=== PATIENT | male | born 1945 | race Caucasian/White ===

== ENCOUNTER 2019-05-23 12:52 | Inpatient (IN) | payer MEDICARE ==
[2019-05-23] MEDS ORDERED: SODIUM CHLORIDE 0.9% 1,000 ML IV STA ×2 (13:34)
[2019-05-23] MEDS ORDERED: SODIUM CHLORIDE 0.9% 500 ML 500 ML IV STA (13:34)
--- NOTE | 2019-05-23 13:39 | ED ---
Weakness HPI - General Chief complaint: Weakness Stated complaint: weakness Time Seen by Provider: 05/23/19 13:17 Source: patient, RN notes reviewed Mode of arrival: ambulatory Limitations: no limitations - History of Present Illness Initial comments: This is a 74-year-old male who was brought in by family members because of generalized weakness. He has had decreased oral intake chills and shakes since last night just generally not feeling well he stated decreased oral intake/appetite. This is apparently been progressing over last week and a half is gotten worse since yesterday. He was admitted to [facility] about a week and a half ago and signed himself out apparently because he was not getting any answers to his questions as to what was going on with him. He states he was having some abdominal pain at that time he states his urine output has been diminished. It is appearing to be darker he has no rhinorrhea no earache sore throat no overt cough he does have occasional phlegm production. No chest pain no palpitations no other modifying factors currently. Discussed with the patient's daughter he apparently has been demonstrating some confusion at times with these symptoms. MD Complaint: generalized weakness - Related Data Home Medications Medication Instructions Recorded Confirmed Aspirin EC [Ecotrin Low Dose] 81 mg PO DAILY 05/23/19 05/23/19 Cholecalciferol [Vitamin D3 (25 1,000 unit PO BID 05/23/19 05/23/19 Mcg = 1000 Iu)] Cinnamon 1000mg + Chromium 1 tab PO BID 05/23/19 05/23/19 Escitalopram [Lexapro] 10 mg PO DAILY 05/23/19 05/23/19 Insulin Degludec [Tresiba 63 units SQ DAILY 05/23/19 05/23/19 Flextouch U-100] Levothyroxine Sodium [Synthroid] 75 mcg PO DAILY 05/23/19 05/23/19 Lisinopril [Zestril] 5 mg PO DAILY 05/23/19 05/23/19 Loratadine [Claritin] 10 mg PO DAILY 05/23/19 05/23/19 Lovastatin [Altoprev] 20 mg PO HS 05/23/19 05/23/19 Multivit-Min/FA/Lycopen/Lutein 1 tab PO DAILY 05/23/19 05/23/19 [Centrum Silver Men Tablet] [place]-3 Fatty Acids/Fish Oil [Fish 1 cap PO TID 05/23/19 05/23/19 Oil 1,000 mg Softgel] Saw [place] 450mg 1 tab PO QID 05/23/19 05/23/19 Tamsulosin HCl [Flomax] 0.4 mg PO DAILY 05/23/19 05/23/19 Testosterone Cypionate 100 mg IM Q14D 05/23/19 05/23/19 [Depo-Testosterone] metFORMIN HCL 1,000 mg PO BID 05/23/19 05/23/19 Allergies Allergy/AdvReac Type Severity Reaction Status Date / Time No Known Allergies Allergy Verified 05/23/19 13:01 Review of Systems ROS Statement: Those systems with pertinent positive or pertinent negative responses have been documented in the HPI. ROS Other: All systems not noted in ROS Statement are negative. Past Medical History Past Medical History: Diabetes Mellitus History of Any Multi-Drug Resistant Organisms: Unobtainable Past Surgical History: No Surgical Hx Reported Past Psychological History: Depression Smoking Status: Never smoker Past Alcohol Use History: None Reported Past Drug Use History: None Reported General Exam - General Exam Comments Initial Comments: This is a well-developed well-nourished awake alert oriented times female Limitations: no limitations General appearance: alert, in no apparent distress Head exam: Present: atraumatic, normocephalic, normal inspection Eye exam: Present: normal appearance, PERRL, EOMI. Absent: scleral icterus, conjunctival injection, periorbital swelling ENT exam: Present: mucous membranes dry Neck exam: Present: normal inspection, full ROM, other (No stridor JVD or bruits). Absent: tenderness, meningismus, lymphadenopathy Respiratory exam: Present: normal lung sounds bilaterally. Absent: respiratory distress, wheezes, rales, rhonchi, stridor Cardiovascular Exam: Present: normal rhythm, tachycardia, normal heart sounds. Absent: systolic murmur, diastolic murmur, rubs, gallop, clicks GI/Abdominal exam: Present: soft, normal bowel sounds. Absent: distended, tenderness, guarding, rebound, rigid Extremities exam: Present: normal inspection, full ROM, normal capillary refill. Absent: tenderness, pedal edema, joint swelling, calf tenderness Back exam: Present: normal inspection Neurological exam: Present: alert, oriented X3, CN II-XII intact Psychiatric exam: Present: normal affect, normal mood Skin exam: Present: warm, dry, intact, normal color. Absent: rash Course Vital Signs 05/23/19 05/23/19 05/23/19 12:56 13:30 14:00 Temperature 100.0 F H Pulse Rate 106 H 95 87 Respiratory 18 16 18 Rate Blood Pressure 92/56 101/58 89/55 O2 Sat by Pulse 92 L 92 L 94 L Oximetry 05/23/19 05/23/19 05/23/19 14:30 14:57 15:00 Temperature 99.2 F Pulse Rate 82 74 77 Respiratory 16 20 Rate Blood Pressure 100/62 117/65 O2 Sat by Pulse 95 98 Oximetry 05/23/19 15:07 Temperature Pulse Rate 87 Respiratory Rate Blood Pressure O2 Sat by Pulse Oximetry Medical Decision Making - Medical Decision Making I did discuss the findings with patient family members. Patient does have evidence a left lower pneumonia low-grade fever L of a white count dehydration renal insufficiency elevated liver enzymes. Elevated bilirubin. Ultrasound of the gallbladder has been ordered. I did discuss case Dr. Christine the patient will be admitted for inpatient treatment - Lab Data Result diagrams: 05/23/19 13:21 05/23/19 13:21 Lab Results 05/23/19 05/23/19 05/23/19 Range/Units 13:21 13:21 13:21 WBC 21.3 H (3.8-10.6) k/uL RBC 4.56 (4.30-5.90) m/uL Hgb 13.8 (13.0-17.5) gm/dL Hct 41.8 (39.0-53.0) % MCV 91.6 (80.0-100.0) fL MCH 30.3 (25.0-35.0) pg MCHC 33.1 (31.0-37.0) g/dL RDW 12.9 (11.5-15.5) % Plt Count 342 (150-450) k/uL Neutrophils % 94 % Lymphocytes % 2 % Monocytes % 3 % Eosinophils % 0 % Basophils % 0 % Neutrophils # 20.0 H (1.3-7.7) k/uL Lymphocytes # 0.3 L (1.0-4.8) k/uL Monocytes # 0.6 (0-1.0) k/uL Eosinophils # 0.1 (0-0.7) k/uL Basophils # 0.1 (0-0.2) k/uL PT 13.2 H (9.0-12.0) sec INR 1.3 H (<1.2) APTT 22.7 (22.0-30.0) sec Sodium 131 L (137-145) mmol/L Potassium 4.3 (3.5-5.1) mmol/L Chloride 97 L (98-107) mmol/L Carbon Dioxide 24 (22-30) mmol/L Anion Gap 10 mmol/L BUN 25 H (9-20) mg/dL Creatinine 1.56 H (0.66-1.25) mg/dL Est GFR (CKD-EPI)AfAm 50 (>60 ml/min/1.73 sqM) Est GFR (CKD-EPI)NonAf 44 (>60 ml/min/1.73 sqM) Glucose 55 L (74-99) mg/dL Plasma Lactic Acid Ciro (0.7-2.0) mmol/L Calcium 8.4 (8.4-10.2) mg/dL Magnesium 1.3 L (1.6-2.3) mg/dL Total Bilirubin 3.2 H (0.2-1.3) mg/dL AST 328 H (17-59) U/L ALT 289 H (4-49) U/L Alkaline Phosphatase 397 H (38-126) U/L Creatine Kinase 66 (55-170) U/L Troponin I (0.000-0.034) ng/mL NT-Pro-B Natriuret Pep pg/mL Total Protein 6.3 (6.3-8.2) g/dL Albumin 3.1 L (3.5-5.0) g/dL Urine Color Urine Appearance (Clear) Urine pH (5.0-8.0) Ur Specific [place] (1.001-1.035) Urine Protein (Negative) Urine Glucose (UA) (Negative) Urine Ketones (Negative) Urine Blood (Negative) Urine Nitrite (Negative) Urine Bilirubin (Negative) Urine Urobilinogen (<2.0) mg/dL Ur Leukocyte Esterase (Negative) Urine RBC (0-5) /hpf Urine WBC (0-5) /hpf Urine Mucus (None) /hpf 03/22/20 03/22/20 03/22/20 Range/Units 13:21 13:21 13:21 WBC (3.8-10.6) k/uL RBC (4.30-5.90) m/uL Hgb (13.0-17.5) gm/dL Hct (39.0-53.0) % MCV (80.0-100.0) fL MCH (25.0-35.0) pg MCHC (31.0-37.0) g/dL RDW (11.5-15.5) % Plt Count (150-450) k/uL Neutrophils % % Lymphocytes % % Monocytes % % Eosinophils % % Basophils % % Neutrophils # (1.3-7.7) k/uL Lymphocytes # (1.0-4.8) k/uL Monocytes # (0-1.0) k/uL Eosinophils # (0-0.7) k/uL Basophils # (0-0.2) k/uL PT (9.0-12.0) sec INR (<1.2) APTT (22.0-30.0) sec Sodium (137-145) mmol/L Potassium (3.5-5.1) mmol/L Chloride (98-107) mmol/L Carbon Dioxide (22-30) mmol/L Anion Gap mmol/L BUN (9-20) mg/dL Creatinine (0.66-1.25) mg/dL Est GFR (CKD-EPI)AfAm (>60 ml/min/1.73 sqM) Est GFR (CKD-EPI)NonAf (>60 ml/min/1.73 sqM) Glucose (74-99) mg/dL Plasma Lactic Acid Ciro 2.1 H* (0.7-2.0) mmol/L Calcium (8.4-10.2) mg/dL Magnesium (1.6-2.3) mg/dL Total Bilirubin (0.2-1.3) mg/dL AST (17-59) U/L ALT (4-49) U/L Alkaline Phosphatase (38-126) U/L Creatine Kinase (55-170) U/L Troponin I <0.012 (0.000-0.034) ng/mL NT-Pro-B Natriuret Pep 952 pg/mL Total Protein (6.3-8.2) g/dL Albumin (3.5-5.0) g/dL Urine Color Urine Appearance (Clear) Urine pH (5.0-8.0) Ur Specific [place] (1.001-1.035) Urine Protein (Negative) Urine Glucose (UA) (Negative) Urine Ketones (Negative) Urine Blood (Negative) Urine Nitrite (Negative) Urine Bilirubin (Negative) Urine Urobilinogen (<2.0) mg/dL Ur Leukocyte Esterase (Negative) Urine RBC (0-5) /hpf Urine WBC (0-5) /hpf Urine Mucus (None) /hpf 05/23/19 Range/Units 13:22 WBC (3.8-10.6) k/uL RBC (4.30-5.90) m/uL Hgb (13.0-17.5) gm/dL Hct (39.0-53.0) % MCV (80.0-100.0) fL MCH (25.0-35.0) pg MCHC (31.0-37.0) g/dL RDW (11.5-15.5) % Plt Count (150-450) k/uL Neutrophils % % Lymphocytes % % Monocytes % % Eosinophils % % Basophils % % Neutrophils # (1.3-7.7) k/uL Lymphocytes # (1.0-4.8) k/uL Monocytes # (0-1.0) k/uL Eosinophils # (0-0.7) k/uL Basophils # (0-0.2) k/uL PT (9.0-12.0) sec INR (<1.2) APTT (22.0-30.0) sec Sodium (137-145) mmol/L Potassium (3.5-5.1) mmol/L Chloride (98-107) mmol/L Carbon Dioxide (22-30) mmol/L Anion Gap mmol/L BUN (9-20) mg/dL Creatinine (0.66-1.25) mg/dL Est GFR (CKD-EPI)AfAm (>60 ml/min/1.73 sqM) Est GFR (CKD-EPI)NonAf (>60 ml/min/1.73 sqM) Glucose (74-99) mg/dL Plasma Lactic Acid Ciro (0.7-2.0) mmol/L Calcium (8.4-10.2) mg/dL Magnesium (1.6-2.3) mg/dL Total Bilirubin (0.2-1.3) mg/dL AST (17-59) U/L ALT (4-49) U/L Alkaline Phosphatase (38-126) U/L Creatine Kinase (55-170) U/L Troponin I (0.000-0.034) ng/mL NT-Pro-B Natriuret Pep pg/mL Total Protein (6.3-8.2) g/dL Albumin (3.5-5.0) g/dL Urine Color Light Brown Urine Appearance Cloudy (Clear) Urine pH 5.5 (5.0-8.0) Ur Specific [place] 1.024 (1.001-1.035) Urine Protein 1+ H (Negative) Urine Glucose (UA) Negative (Negative) Urine Ketones Negative (Negative) Urine Blood Negative (Negative) Urine Nitrite Negative (Negative) Urine Bilirubin 2+ H (Negative) Urine Urobilinogen 8.0 (<2.0) mg/dL Ur Leukocyte Esterase Negative (Negative) Urine RBC 1 (0-5) /hpf Urine WBC 3 (0-5) /hpf Urine Mucus Few H (None) /hpf - EKG Data -: EKG Interpreted by Pa EKG shows normal: sinus rhythm (Sinus rhythm with PVCs. Ventricular rate 96 RI interval 168 QRS duration 86 QT since QTC 360/44) - Radiology Data Radiology results: report reviewed (Patient does have evidence of left lower lob e infiltrate on x-ray.), image reviewed Disposition Clinical Impression: Left lower lobe pneumonia, Acute kidney injury, Dehydration, Hyperbilirubinemia Disposition: ADMITTED IP TO THIS [facility] Condition: Fair Referrals: Td Chen MD [Primary Care Provider] - 1-2 days
[2019-05-23 13:42] LABS: Basophils # (A) 0.1 k/uL (0-0.2); Basophils % (A) 0 %; Eosinophils # (A) 0.1 k/uL (0-0.7); Eosinophils % (A) 0 %; HCT 41.8 % (39.0-53.0); HGB 13.8 gm/dL (13.0-17.5); Lymphocytes # (A) 0.3 k/uL (1.0-4.8); Lymphocytes % (A) 2 %; MCH 30.3 pg (25.0-35.0); MCHC 33.1 g/dL (31.0-37.0); MCV 91.6 fL (80.0-100.0); Mean Platelet Volume 7.9; Monocytes # (A) 0.6 k/uL (0-1.0); Monocytes % (A) 3 %; Neutrophils % (A) 94 %; Platelet Count 342 k/uL (150-450); RBC 4.56 m/uL (4.30-5.90); RDW 12.9 % (11.5-15.5); WBC 21.3 k/uL (3.8-10.6)
[2019-05-23 13:49] LABS: Appearance,Urine Cloudy (Clear); Bilirubin,Urine 2+ (Negative); Blood,Urine Negative (Negative); Color,Urine Light Brown; Glucose,Urine (UA) Negative (Negative); Ketones,Urine Negative (Negative); Leukocyte Esterase,Urine Negative (Negative); Mucus,Urine Few /hpf; Nitrite,Urine Negative (Negative); PH, Urine 5.5 (5.0-8.0); Protein,Urine 1+ (Negative); RBC,Urine 1 /hpf (0-5); Specific Gravity,Urine 1.024 (1.001-1.035); WBC,Urine 3 /hpf (0-5)
[2019-05-23 13:49] LABS: Albumin 3.1 g/dL (3.5-5.0); Calcium 8.4 mg/dL (8.4-10.2); Magnesium 1.3 mg/dL (1.6-2.3); Potassium 4.3 mmol/L (3.5-5.1); Total Bilirubin 3.2 mg/dL (0.2-1.3); Total Protein 6.3 g/dL (6.3-8.2)
[2019-05-23 13:51] LABS: INR 1.3 (<1.2); Partial Thromboplastin Time 22.7 sec (22.0-30.0); Prothrombin Time 13.2 sec (9.0-12.0)
--- NOTE | 2019-05-23 13:55 | XR ---
EXAMINATION TYPE: XR chest 2V DATE OF EXAM: 05/23/2019 HISTORY: Weakness. REFERENCE: NONE. FINDINGS: There is a left lower lobe infiltrate. The heart is mildly enlarged. There is blunting of b oth CP angles. I could not exclude small effusions. IMPRESSION: LEFT LOWER LOBE INFILTRATE.
[2019-05-23] MEDS ORDERED: cefTRIAXone IN SWFI 1,000 MG/10 ML SYRINGE IVP STA (14:17)
[2019-05-23] MEDS ORDERED: IPRATROPIUM-ALBUTEROL 3 ML NEB INHALATION STA (14:20)
[2019-05-23] MEDS: MAGNESIUM SULFATE-D5W PMX 1 GM in DEXTROSE/WATER 1 100ML.BAG IVPB SCH ×2 (14:26→15:56)
--- NOTE | 2019-05-23 14:59 | US ---
EXAMINATION TYPE: US gallbladder DATE OF EXAM: 05/23/2019 COMPARISON: NONE CLINICAL HISTORY: Hyperbilirubinemia. Abnormal labs EXAM MEASUREMENTS: Liver Length: 19.7 cm Gallbladder Wall: 1.0 cm CBD: 1.0 cm Right Kidney: 11.1 x 5.0 x 5.0 cm Pancreas: Body wnl, head and tail obscured by overlying bowel gas Liver: Enlarged, difficult to penetrate Gallbladder: Wall thickened with pericholecystic fluid, debris visualized at dependent portion Evidence for sonographic García's sign: No CBD: wnl Right Kidney: wnl IMPRESSION: Thickening gallbladder wall suggestive of cholecystitis. No definite gallstones seen.
[2019-05-23] MEDS ORDERED: AZITHROMYCIN 500 MG in SODIUM CHLORIDE 0.9% 250 ML IVPB STA (15:34)
[2019-05-23] MEDS ORDERED: PNEUMONIA PROTOCOL UTILIZED 1 EACH MISC PO PRN (15:34)
[2019-05-23] MEDS: SODIUM CHLORIDE 0.9% 1,000 ML IV SCH (15:55)
[2019-05-23 16:03] LABS: Hepatitis A Antibody IgM NEGATIVE
[2019-05-23 17:15] LABS: Glucose,Whole Blood 96 mg/dL (75-99)
[2019-05-23 20:18] LABS: Glucose,Whole Blood 138 mg/dL (75-99)
[2019-05-23] MEDS: metFORMIN 500 MG TAB PO SCH (20:24)
[2019-05-23] MEDS: ATORVASTATIN 10 MG TAB PO SCH (20:24)
[2019-05-23] MEDS: ENOXAPARIN 40 MG/0.4 ML SYRINGE SQ SCH (21:27)
--- NOTE | 2019-05-23 22:46 | P.HPIM ---
History of Present Illness H&P Date: 05/23/19 Chief Complaint: Not feeling well History of presenting complaint: This is a pleasant 74-year-old patient of Dr. Chen. Patient about a week ago left [facility]. He was treated there for pneumonia. Patient now presents with decreased appetite having chills at home. Minimal cough. Nonspecific upper abdominal pain. Also worsening reflux symptoms. No chest pain. Minimal cough. Some shortness of breath. The abdominal pain did not radiate. Not related to food. It is gone now. Review of systems: GEN.: Fever or chills EYES: None HEENT: None NECK: None RESPIRATORY: As above CARDIOVASCULAR: None GASTROINTESTINAL: As above] GENITOURINARY: None MUSCULOSKELETAL: Some joint pains LYMPHATICS: None HEMATOLOGICAL: None PSYCHIATRY: None NEUROLOGICAL: None Past medical history to include: Diabetes, depression, BPH, hyperlipidemia, hypertension, hypothyroid Social history: Retired. Lives with his . No smoking or alcohol Family history: Reviewed, noncontributory to presentation Physical examination: VITAL SIGNS: 100, 106, 18, blood pressure 92/56, 92% on room air GENERAL: BMI 31.3, laying in bed, tired. EYES: Pupils equal. Conjunctiva normal. HEENT: External appearance of nose and ears normal, oral cavity grossly normal. NECK: JVD not raised; masses not palpable. HEART: First and second heart sounds are normal; no edema. LUNGS: Respiratory rate increased, decreased breath sound at the bases. ABDOMEN: Soft, nontender, liver spleen not palpable, no masses palpable. PSYCH: [Alert and oriented x3; mood and affect tired l. NEUROLOGICAL: Cranial nerves grossly intact; no facial asymmetry, power and sensation grossly intact. LYMPHATICS: No lymph nodes palpable in the axilla and neck INVESTIGATIONS, reviewed in the clinical context: White count 21.3 hemoglobin 13.8 platelets 342 potassium 4.3 sodium 131 bun 3025 creatinine 1.56 glucose 55 lactic acid 2.1 total bilirubin 3.2 AST 328 ALT 289 alkaline phosphatase 397 UA positive for 1+ protein, bilirubin 2+ Hepatitis A IgM antibody negative Chest x-ray film personally reviewed by me-basilar infiltrate EKG tracing personally reviewed by me-normal sinus rhythm Gallbladder ultrasound-enlarged liver, gallbladder with thickened wall with pericholecystic fluid with some debris within the visualized of the dependent portions Assessment: -Suspect basal pneumonia suspect gram-negative organism and the patient was treated for pneumonia at [facility] left AMA about a week ago. Patient's had slight cough some shortness of breath -Upper abdominal pain with abdominal ultrasound, with negative García's sign, the ultrasound suggestive of acute cholecystitis with increased LFTs -Acute renal failure possibly ATN with hypotension -Obesity BMI 31.3 -Diabetes mellitus type 2, uncontrolled with hypoglycemia from decreased oral intake -BPH -Hyperlipidemia -Hypothyroid -Depression otherwise specified Plan: Patient started on ceftriaxone and Zithromax in the ER. We'll cut back a dose of Levemir to 30 units in the morning. Sliding scale insulin. Give IV fluids. Repeat lites in the morning. Lovenox for DVT prophylaxis. Surgical consultation will be obtained. Other home medications are reviewed. Care was discussed with the patient question were answered Past Medical History Past Medical History: Diabetes Mellitus History of Any Multi-Drug Resistant Organisms: Unobtainable Past Surgical History: No Surgical Hx Reported Past Psychological History: Depression Smoking Status: Never smoker Past Alcohol Use History: None Reported Past Drug Use History: None Reported Medications and Allergies Home Medications Medication Instructions Recorded Confirmed Type Aspirin EC [Ecotrin Low Dose] 81 mg PO DAILY 05/23/19 05/23/19 History Cholecalciferol [Vitamin D3 (25 1,000 unit PO BID 05/23/19 05/23/19 History Mcg = 1000 Iu)] Cinnamon 1000mg + Chromium 1 tab PO BID 05/23/19 05/23/19 History Escitalopram [Lexapro] 10 mg PO DAILY 05/23/19 05/23/19 History Insulin Degludec [Tresiba 63 units SQ DAILY 05/23/19 05/23/19 History Flextouch U-100] Levothyroxine Sodium [Synthroid] 75 mcg PO DAILY 05/23/19 05/23/19 History Lisinopril [Zestril] 5 mg PO DAILY 05/23/19 05/23/19 History Loratadine [Claritin] 10 mg PO DAILY 05/23/19 05/23/19 History Lovastatin [Altoprev] 20 mg PO HS 05/23/19 05/23/19 History Multivit-Min/FA/Lycopen/Lutein 1 tab PO DAILY 05/23/19 05/23/19 History [Centrum Silver Men Tablet] [place]-3 Fatty Acids/Fish Oil [Fish 1 cap PO TID 05/23/19 05/23/19 History Oil 1,000 mg Softgel] Saw [place] 450mg 1 tab PO QID 05/23/19 05/23/19 History Tamsulosin HCl [Flomax] 0.4 mg PO DAILY 05/23/19 05/23/19 History Testosterone Cypionate 100 mg IM Q14D 05/23/19 05/23/19 History [Depo-Testosterone] metFORMIN HCL 1,000 mg PO BID 05/23/19 05/23/19 History Allergies Allergy/AdvReac Type Severity Reaction Status Date / Time No Known Allergies Allergy Verified 05/23/19 15:29 Physical Exam Vitals: Vital Signs Temp Pulse Pulse Pulse Resp BP BP 05/23/19 20:26 98.4 F 65 18 101/57 05/23/19 16:54 96.8 F L 76 20 97/54 05/23/19 16:00 79 16 100/60 05/23/19 15:30 79 18 104/60 05/23/19 15:07 87 05/23/19 15:00 77 20 117/65 05/23/19 14:57 74 05/23/19 14:30 99.2 F 82 16 100/62 05/23/19 14:00 87 18 89/55 05/23/19 13:30 95 16 101/58 05/23/19 12:56 100.0 F H 106 H 18 92/56 Pulse Ox 05/23/19 20:26 97 05/23/19 16:54 94 L 05/23/19 16:00 94 L 05/23/19 15:30 94 L 05/23/19 15:07 05/23/19 15:00 98 05/23/19 14:57 05/23/19 14:30 95 05/23/19 14:00 94 L 05/23/19 13:30 92 L 05/23/19 12:56 92 L Intake and Output 05/23/19 05/23/19 05/23/19 06:59 14:59 22:59 Intake Total 200 Balance 200 Intake: Oral 200 Other: Voiding Method Urinal Urinal # Voids 1 Weight 90.718 kg Results CBC & Chem 7: 05/23/19 13:21 03/22/20 13:21 Labs: Abnormal Lab Results - Last 24 Hours (Table) 05/23/19 05/23/19 05/23/19 Range/Units 13:21 13:21 13:21 WBC 21.3 H (3.8-10.6) k/uL Neutrophils # 20.0 H (1.3-7.7) k/uL Lymphocytes # 0.3 L (1.0-4.8) k/uL PT 13.2 H (9.0-12.0) sec INR 1.3 H (<1.2) Sodium 131 L (137-145) mmol/L Chloride 97 L (98-107) mmol/L BUN 25 H (9-20) mg/dL Creatinine 1.56 H (0.66-1.25) mg/dL Glucose 55 L (74-99) mg/dL POC Glucose (mg/dL) (75-99) mg/dL Plasma Lactic Acid Ciro (0.7-2.0) mmol/L Magnesium 1.3 L (1.6-2.3) mg/dL Total Bilirubin 3.2 H (0.2-1.3) mg/dL AST 328 H (17-59) U/L ALT 289 H (4-49) U/L Alkaline Phosphatase 397 H (38-126) U/L Albumin 3.1 L (3.5-5.0) g/dL Urine Protein (Negative) Urine Bilirubin (Negative) Urine Mucus (None) /hpf 05/23/19 05/23/19 05/23/19 Range/Units 13:21 13:22 17:42 WBC (3.8-10.6) k/uL Neutrophils # (1.3-7.7) k/uL Lymphocytes # (1.0-4.8) k/uL PT (9.0-12.0) sec INR (<1.2) Sodium (137-145) mmol/L Chloride (98-107) mmol/L BUN (9-20) mg/dL Creatinine (0.66-1.25) mg/dL Glucose (74-99) mg/dL POC Glucose (mg/dL) (75-99) mg/dL Plasma Lactic Acid Ciro 2.1 H* 2.9 H* (0.7-2.0) mmol/L Magnesium (1.6-2.3) mg/dL Total Bilirubin (0.2-1.3) mg/dL AST (17-59) U/L ALT (4-49) U/L Alkaline Phosphatase (38-126) U/L Albumin (3.5-5.0) g/dL Urine Protein 1+ H (Negative) Urine Bilirubin 2+ H (Negative) Urine Mucus Few H (None) /hpf 05/23/19 Range/Units 20:14 WBC (3.8-10.6) k/uL Neutrophils # (1.3-7.7) k/uL Lymphocytes # (1.0-4.8) k/uL PT (9.0-12.0) sec INR (<1.2) Sodium (137-145) mmol/L Chloride (98-107) mmol/L BUN (9-20) mg/dL Creatinine (0.66-1.25) mg/dL Glucose (74-99) mg/dL POC Glucose (mg/dL) 138 H (75-99) mg/dL Plasma Lactic Acid Ciro (0.7-2.0) mmol/L Magnesium (1.6-2.3) mg/dL Total Bilirubin (0.2-1.3) mg/dL AST (17-59) U/L ALT (4-49) U/L Alkaline Phosphatase (38-126) U/L Albumin (3.5-5.0) g/dL Urine Protein (Negative) Urine Bilirubin (Negative) Urine Mucus (None) /hpf Thrombosis Risk Factor Assmnt - Choose All That Apply Each Risk Factor Represents 2 Points: Age 61-74 years Thrombosis Risk Factor Assessment Total Risk Factor Score: 2 Thrombosis Risk Factor Assessment Level: Low Risk
[2019-05-24] MEDS: SODIUM CHLORIDE 0.9% 1,000 ML IV SCH ×6 (00:31→17:52)
[2019-05-24] MEDS: LEVOTHYROXINE 75 MCG TAB PO SCH (05:12)
[2019-05-24 07:14] LABS: Glucose,Whole Blood 75 mg/dL (75-99)
[2019-05-24] MEDS: INSULIN ASPART (NovoLOG) 100 UNIT/ML VIAL SQ SCH ×4 (07:27→20:48)
--- NOTE | 2019-05-24 07:45 | XR ---
EXAMINATION TYPE: XR chest 2V DATE OF EXAM: 05/24/2019 COMPARISON: 05/23/2019 HISTORY: 74-year-old male pneumonia TECHNIQUE: Frontal and lateral views FINDINGS: Heart mildly enlarged. Strandy bibasilar opacities. Multiple old right-sided rib fracture deformities . Focal patchy posterior basilar opacity remains. IMPRESSION: Mild cardiomegaly. Strandy bibasilar atelectasis but with continued more focal posterior basilar infi ltrate on the lateral view.
[2019-05-24 08:09] LABS: HCT 38.8 % (39.0-53.0); HGB 12.4 gm/dL (13.0-17.5); MCH 30.4 pg (25.0-35.0); MCHC 32.1 g/dL (31.0-37.0); MCV 94.8 fL (80.0-100.0); Platelet Count 339 k/uL (150-450); RBC 4.09 m/uL (4.30-5.90); RDW 13.1 % (11.5-15.5); WBC 17.9 k/uL (3.8-10.6)
[2019-05-24 08:18] LABS: Calcium 8.3 mg/dL (8.4-10.2); Potassium 4.8 mmol/L (3.5-5.1); Total Bilirubin 3.3 mg/dL (0.2-1.3); Total Protein 6.3 g/dL (6.3-8.2)
[2019-05-24] MEDS: INSULIN DETEMIR (LEVEMIR) 100 UNIT/ML SYR SQ SCH (08:20)
[2019-05-24] MEDS: ESCITALOPRAM 10 MG TAB PO SCH (08:20)
[2019-05-24] MEDS: metFORMIN 500 MG TAB PO SCH ×2 (08:20→20:48)
[2019-05-24] MEDS: TAMSULOSIN 0.4 MG CAP.ER.24H PO SCH (08:20)
[2019-05-24] MEDS: ASPIRIN 81 MG PO SCH (08:20)
[2019-05-24] MEDS ORDERED: INSULIN DETEMIR (LEVEMIR) 100 UNIT/ML SYR SQ SCH (09:00)
[2019-05-24] MEDS ORDERED: LORATADINE 10 MG TAB PO SCH (09:00)
[2019-05-24] MEDS ORDERED: LISINOPRIL 5 MG TAB PO SCH (09:00)
[2019-05-24 09:55] LABS: Hepatitis B Core IgM Non-Reactive (Non-Reactive); Hepatitis B Surface Antigen Non-Reactive (Non-Reactive); Hepatitis C IgG Antibody Non-Reactive (Non-Reactive)
--- NOTE | 2019-05-24 10:17 | P.GSCN ---
<Katlyn Wren - Last Filed: 05/24/19 10:14> History of Present Illness Consult date: 05/24/19 Reason for Consult: abnormal US Requesting physician: Roberto Christine History of present illness: CHIEF COMPLAINT: Abnormal ultrasound HISTORY OF PRESENT ILLNESS: 74-year-old male who is currently admitted to hospital secondary to pneumonia. General surgery was consulted secondary to abnormal gallbladder ultrasound. Patient examined this morning at the bedside. He currently denies abdominal pain. He does report abdominal pain in the epigastric region and bilateral upper quadrants last week. He denies nausea or vomiting. He believes he may have had some diarrhea but he is not for certain. He currently denies abdominal pain. PAST MEDICAL HISTORY: See list. PAST SURGICAL HISTORY: See list. MEDICATIONS: See list. ALLERGIES: See list. SOCIAL HISTORY: No illicit drug use. REVIEW OF SYSTEMS: CONSTITUTIONAL: Reports chills prior to coming to the hospital. HEENT: Denies blurred vision, vision changes, or eye pain. Denies hemoptysis ENDOCRINE: Denies heat or cold intolerance. CARDIOVASCULAR: Denies chest pain or pressure. RESPIRATORY: Reports shortness of breath and cough prior to hospitalization GASTROINTESTINAL: See HPI for pertinent findings NEURO: Denies history of seizures. PSYCH: History of depression. No current suicidal ideation HEMATOLOGIC: Denies bleeding disorders. LYMPHATIC: The patient denies any lumps and bumps around the neck. GENITOURINARY: Denies any blood in urine or increased urinary frequency. MUSCULOSKELETAL: Denies myalgias. Denies joint swelling. Denies decreased range of motion beyond patients baseline. SKIN: Denies pruitis. Denies rash. PHYSICAL EXAM: VITAL SIGNS: Reviewed GENERAL: Well-developed in no acute distress. HEENT: No sclera icterus. Extraocular movements grossly intact. Moist buccal mucosa. Head is atraumatic, normocephalic. Hears conversational speech. No nasal drainage. NECK: Supple without lymphadenopathy. CHEST: Non-labored respirations and equal bilateral excursions. CARDIOVASCULAR: Regular rate with regular rhythm. Palpable 2+ radial pulses. ABDOMEN: Soft. Nondistended. Nontender MUSCULOSKELETAL: No clubbing or cyanosis. NEUROLOGIC: No focal or lateralizing signs. Cranial nerves II through XII grossly intact. PSYCH: Appropriate affect. Alert and oriented to person, place and time. SKIN: Well perfused. Good skin turgor. LABORATORY DATA: WBC 17.9. Hemoglobin 12.4. Platelet count 339. Bilirubin 3.3. AST 226. ALT 290. Alkaline phosphatase 312. IMAGING: Gallbladder ultrasound: Enlarged liver. Gallbladder wall thickened with pericholecystic fluid. Debris visualized at dependent portion. No definite gallstones seen. ASSESSMENT: 1. Abdominal pain 2. Acute cholecystitis 3. Hyperbilirubinemia PLAN: -Change diet to low diet -Continue IV antibiotics. Monitor WBC -Obtain HIDA scan -Consult GI for evaluation -Obtain cardiac clearance -Earliest surgical intervention would be 05/26/[address] Allen Nurse practitioner note has been reviewed by physician. Signing provider agrees with the documented findings, assessment, and plan of care. Past Medical History Past Medical History: Diabetes Mellitus History of Any Multi-Drug Resistant Organisms: Unobtainable Past Surgical History: No Surgical Hx Reported Past Psychological History: Depression Smoking Status: Never smoker Past Alcohol Use History: None Reported Past Drug Use History: None Reported Medications and Allergies Home Medications Medication Instructions Recorded Confirmed Type Aspirin EC [Ecotrin Low Dose] 81 mg PO DAILY 05/23/19 05/23/19 History Cholecalciferol [Vitamin D3 (25 1,000 unit PO BID 05/23/19 05/23/19 History Mcg = 1000 Iu)] Cinnamon 1000mg + Chromium 1 tab PO BID 05/23/19 05/23/19 History Escitalopram [Lexapro] 10 mg PO DAILY 05/23/19 05/23/19 History Insulin Degludec [Tresiba 63 units SQ DAILY 05/23/19 05/23/19 History Flextouch U-100] Levothyroxine Sodium [Synthroid] 75 mcg PO DAILY 05/23/19 05/23/19 History Lisinopril [Zestril] 5 mg PO DAILY 05/23/19 05/23/19 History Loratadine [Claritin] 10 mg PO DAILY 05/23/19 05/23/19 History Lovastatin [Altoprev] 20 mg PO HS 05/23/19 05/23/19 History Multivit-Min/FA/Lycopen/Lutein 1 tab PO DAILY 05/23/19 05/23/19 History [Centrum Silver Men Tablet] [place]-3 Fatty Acids/Fish Oil [Fish 1 cap PO TID 05/23/19 05/23/19 History Oil 1,000 mg Softgel] [place] 450mg 1 tab PO QID 05/23/19 05/23/19 History Tamsulosin HCl [Flomax] 0.4 mg PO DAILY 05/23/19 05/23/19 History Testosterone Cypionate 100 mg IM Q14D 05/23/19 05/23/19 History [Depo-Testosterone] metFORMIN HCL 1,000 mg PO BID 05/23/19 05/23/19 History Allergies Allergy/AdvReac Type Severity Reaction Status Date / Time No Known Allergies Allergy Verified 05/23/19 15:29 Surgical - Exam Vital Signs Temp Pulse Resp BP Pulse Ox 100.0 F H 106 H 18 92/56 92 L 05/23/19 12:56 05/23/19 12:56 05/23/19 12:56 05/23/19 12:56 05/23/19 12:56 Results - Labs 05/24/19 07:37 05/24/19 07:37 Abnormal Lab Results - Last 24 Hours (Table) 05/23/19 05/23/19 05/23/19 Range/Units 13:21 13:21 13:21 WBC 21.3 H (3.8-10.6) k/uL RBC (4.30-5.90) m/uL Hgb (13.0-17.5) gm/dL Hct (39.0-53.0) % Neutrophils # 20.0 H (1.3-7.7) k/uL Lymphocytes # 0.3 L (1.0-4.8) k/uL PT 13.2 H (9.0-12.0) sec INR 1.3 H (<1.2) Sodium 131 L (137-145) mmol/L Chloride 97 L (98-107) mmol/L BUN 25 H (9-20) mg/dL Creatinine 1.56 H (0.66-1.25) mg/dL Glucose 55 L (74-99) mg/dL POC Glucose (mg/dL) (75-99) mg/dL Plasma Lactic Acid Ciro (0.7-2.0) mmol/L Calcium (8.4-10.2) mg/dL Magnesium 1.3 L (1.6-2.3) mg/dL Total Bilirubin 3.2 H (0.2-1.3) mg/dL AST 328 H (17-59) U/L ALT 289 H (4-49) U/L Alkaline Phosphatase 397 H (38-126) U/L Albumin 3.1 L (3.5-5.0) g/dL Urine Protein (Negative) Urine Bilirubin (Negative) Urine Mucus (None) /hpf 05/23/19 05/23/19 05/23/19 Range/Units 13:21 13:22 17:42 WBC (3.8-10.6) k/uL RBC (4.30-5.90) m/uL Hgb (13.0-17.5) gm/dL Hct (39.0-53.0) % Neutrophils # (1.3-7.7) k/uL Lymphocytes # (1.0-4.8) k/uL PT (9.0-12.0) sec INR (<1.2) Sodium (137-145) mmol/L Chloride (98-107) mmol/L BUN (9-20) mg/dL Creatinine (0.66-1.25) mg/dL Glucose (74-99) mg/dL POC Glucose (mg/dL) (75-99) mg/dL Plasma Lactic Acid Ciro 2.1 H* 2.9 H* (0.7-2.0) mmol/L Calcium (8.4-10.2) mg/dL Magnesium (1.6-2.3) mg/dL Total Bilirubin (0.2-1.3) mg/dL AST (17-59) U/L ALT (4-49) U/L Alkaline Phosphatase (38-126) U/L Albumin (3.5-5.0) g/dL Urine Protein 1+ H (Negative) Urine Bilirubin 2+ H (Negative) Urine Mucus Few H (None) /hpf 05/23/19 05/24/19 05/24/19 Range/Units 20:14 07:37 07:37 WBC 17.9 H (3.8-10.6) k/uL RBC 4.09 L (4.30-5.90) m/uL Hgb 12.4 L (13.0-17.5) gm/dL Hct 38.8 L (39.0-53.0) % Neutrophils # (1.3-7.7) k/uL Lymphocytes # (1.0-4.8) k/uL PT (9.0-12.0) sec INR (<1.2) Sodium (137-145) mmol/L Chloride (98-107) mmol/L BUN 28 H (9-20) mg/dL Creatinine (0.66-1.25) mg/dL Glucose 70 L (74-99) mg/dL POC Glucose (mg/dL) 138 H (75-99) mg/dL Plasma Lactic Acid Ciro (0.7-2.0) mmol/L Calcium 8.3 L (8.4-10.2) mg/dL Magnesium (1.6-2.3) mg/dL Total Bilirubin 3.3 H (0.2-1.3) mg/dL AST 226 H (17-59) U/L ALT 290 H (4-49) U/L Alkaline Phosphatase 312 H (38-126) U/L Albumin 3.0 L (3.5-5.0) g/dL Urine Protein (Negative) Urine Bilirubin (Negative) Urine Mucus (None) /hpf Diabetes panel 05/23/19 05/24/19 Range/Units 13:21 07:37 Sodium 131 L 139 (137-145) mmol/L Potassium 4.3 4.8 (3.5-5.1) mmol/L Chloride 97 L 102 (98-107) mmol/L Carbon Dioxide 24 27 (22-30) mmol/L BUN 25 H 28 H (9-20) mg/dL Creatinine 1.56 H 1.21 (0.66-1.25) mg/dL Glucose 55 L 70 L (74-99) mg/dL Calcium 8.4 8.3 L (8.4-10.2) mg/dL AST 328 H 226 H (17-59) U/L ALT 289 H 290 H (4-49) U/L Alkaline Phosphatase 397 H 312 H (38-126) U/L Total Protein 6.3 6.3 (6.3-8.2) g/dL Albumin 3.1 L 3.0 L (3.5-5.0) g/dL Calcium panel 05/23/19 05/24/19 Range/Units 13:21 07:37 Calcium 8.4 8.3 L (8.4-10.2) mg/dL Albumin 3.1 L 3.0 L (3.5-5.0) g/dL Pituitary panel 05/23/19 05/24/19 Range/Units 13:21 07:37 Sodium 131 L 139 (137-145) mmol/L Potassium 4.3 4.8 (3.5-5.1) mmol/L Chloride 97 L 102 (98-107) mmol/L Carbon Dioxide 24 27 (22-30) mmol/L BUN 25 H 28 H (9-20) mg/dL Creatinine 1.56 H 1.21 (0.66-1.25) mg/dL Glucose 55 L 70 L (74-99) mg/dL Calcium 8.4 8.3 L (8.4-10.2) mg/dL Adrenal panel 05/23/19 05/24/19 Range/Units 13:21 07:37 Sodium 131 L 139 (137-145) mmol/L Potassium 4.3 4.8 (3.5-5.1) mmol/L Chloride 97 L 102 (98-107) mmol/L Carbon Dioxide 24 27 (22-30) mmol/L BUN 25 H 28 H (9-20) mg/dL Creatinine 1.56 H 1.21 (0.66-1.25) mg/dL Glucose 55 L 70 L (74-99) mg/dL Calcium 8.4 8.3 L (8.4-10.2) mg/dL Total Bilirubin 3.2 H 3.3 H (0.2-1.3) mg/dL AST 328 H 226 H (17-59) U/L ALT 289 H 290 H (4-49) U/L Alkaline Phosphatase 397 H 312 H (38-126) U/L Total Protein 6.3 6.3 (6.3-8.2) g/dL Albumin 3.1 L 3.0 L (3.5-5.0) g/dL <Anika Allen - Last Filed: 05/26/19 09:27> History of Present Illness History of present illness: HIDA scan ordered to confirm findings of ultrasound including acute cholecystitis. Also patient will need full cardiac clearance prior to any surgical intervention. Ultrasound of the gallbladder independently reviewed with thickened gallbladder wall almost 1 cm. Agree with GI consultation for possibility of choledocholithiasis with elevated total bilirubin and liver enzymes. Also recommend adding Zosyn for acute cholecystitis Surgical - Exam Vital Signs Temp Pulse Resp BP Pulse Ox 100.0 F H 106 H 18 92/56 92 L 05/23/19 12:56 05/23/19 12:56 05/23/19 12:56 05/23/19 12:56 05/23/19 12:56 Results - Labs 05/26/19 06:40 05/26/19 06:39 Abnormal Lab Results - Last 24 Hours (Table) 05/24/19 05/25/19 05/25/19 Range/Units 07:37 05:53 11:48 RBC (4.30-5.90) m/uL Hgb (13.0-17.5) gm/dL Hct (39.0-53.0) % Lymphocytes # (Manual) (1.0-4.8) k/uL Creatinine (0.66-1.25) mg/dL Glucose (74-99) mg/dL POC Glucose (mg/dL) 115 H (75-99) mg/dL Iron 54 L (65-175) ug/dL TIBC 223 L (228-460) ug/dL Ferritin 659.1 H (22.0-322.0) ng/mL Total Bilirubin (0.2-1.3) mg/dL AST (17-59) U/L ALT (4-49) U/L Alkaline Phosphatase (38-126) U/L Total Protein (6.3-8.2) g/dL Albumin (3.5-5.0) g/dL Ryywj-4-Jfsagjlydyi <16.0 L (99.0-242.0) mg/dL 05/25/19 05/25/19 05/26/19 Range/Units 16:39 20:20 01:53 RBC (4.30-5.90) m/uL Hgb (13.0-17.5) gm/dL Hct (39.0-53.0) % Lymphocytes # (Manual) (1.0-4.8) k/uL Creatinine (0.66-1.25) mg/dL Glucose (74-99) mg/dL POC Glucose (mg/dL) 148 H 143 H 65 L (75-99) mg/dL Iron (65-175) ug/dL TIBC (228-460) ug/dL Ferritin (22.0-322.0) ng/mL Total Bilirubin (0.2-1.3) mg/dL AST (17-59) U/L ALT (4-49) U/L Alkaline Phosphatase (38-126) U/L Total Protein (6.3-8.2) g/dL Albumin (3.5-5.0) g/dL Cwxcr-6-Hnodweuveuo (99.0-242.0) mg/dL 05/26/19 05/26/19 05/26/19 Range/Units 02:22 06:39 06:40 RBC 4.08 L (4.30-5.90) m/uL Hgb 12.3 L (13.0-17.5) gm/dL Hct 38.4 L (39.0-53.0) % Lymphocytes # (Manual) 0.51 L (1.0-4.8) k/uL Creatinine 1.32 H (0.66-1.25) mg/dL Glucose 63 L (74-99) mg/dL POC Glucose (mg/dL) 103 H (75-99) mg/dL Iron (65-175) ug/dL TIBC (228-460) ug/dL Ferritin (22.0-322.0) ng/mL Total Bilirubin 2.0 H (0.2-1.3) mg/dL AST 144 H (17-59) U/L ALT 259 H (4-49) U/L Alkaline Phosphatase 720 H (38-126) U/L Total Protein 6.1 L (6.3-8.2) g/dL Albumin 3.0 L (3.5-5.0) g/dL Ojhmx-9-Chztsmndlgu (99.0-242.0) mg/dL 05/26/19 05/26/19 05/26/19 Range/Units 07:04 07:39 08:33 RBC (4.30-5.90) m/uL Hgb (13.0-17.5) gm/dL Hct (39.0-53.0) % Lymphocytes # (Manual) (1.0-4.8) k/uL Creatinine (0.66-1.25) mg/dL Glucose (74-99) mg/dL POC Glucose (mg/dL) 60 L 146 H 138 H (75-99) mg/dL Iron (65-175) ug/dL TIBC (228-460) ug/dL Ferritin (22.0-322.0) ng/mL Total Bilirubin (0.2-1.3) mg/dL AST (17-59) U/L ALT (4-49) U/L Alkaline Phosphatase (38-126) U/L Total Protein (6.3-8.2) g/dL Albumin (3.5-5.0) g/dL Kcxjl-3-Ddpgcanjzcz (99.0-242.0) mg/dL Microbiology - Last 24 Hours (Table) 05/23/19 13:21 Blood Culture - Preliminary Blood No Growth after 48 hours Diabetes panel 05/26/19 Range/Units 06:39 Sodium 138 (137-145) mmol/L Potassium 4.5 (3.5-5.1) mmol/L Chloride 103 (98-107) mmol/L Carbon Dioxide 29 (22-30) mmol/L BUN 16 (9-20) mg/dL Creatinine 1.32 H (0.66-1.25) mg/dL Glucose 63 L (74-99) mg/dL Calcium 8.5 (8.4-10.2) mg/dL AST 144 H (17-59) U/L ALT 259 H (4-49) U/L Alkaline Phosphatase 720 H (38-126) U/L Total Protein 6.1 L (6.3-8.2) g/dL Albumin 3.0 L (3.5-5.0) g/dL Calcium panel 05/26/19 Range/Units 06:39 Calcium 8.5 (8.4-10.2) mg/dL Albumin 3.0 L (3.5-5.0) g/dL Pituitary panel 05/26/19 Range/Units 06:39 Sodium 138 (137-145) mmol/L Potassium 4.5 (3.5-5.1) mmol/L Chloride 103 (98-107) mmol/L Carbon Dioxide 29 (22-30) mmol/L BUN 16 (9-20) mg/dL Creatinine 1.32 H (0.66-1.25) mg/dL Glucose 63 L (74-99) mg/dL Calcium 8.5 (8.4-10.2) mg/dL Adrenal panel 05/26/19 Range/Units 06:39 Sodium 138 (137-145) mmol/L Potassium 4.5 (3.5-5.1) mmol/L Chloride 103 (98-107) mmol/L Carbon Dioxide 29 (22-30) mmol/L BUN 16 (9-20) mg/dL Creatinine 1.32 H (0.66-1.25) mg/dL Glucose 63 L (74-99) mg/dL Calcium 8.5 (8.4-10.2) mg/dL Total Bilirubin 2.0 H (0.2-1.3) mg/dL AST 144 H (17-59) U/L ALT 259 H (4-49) U/L Alkaline Phosphatase 720 H (38-126) U/L Total Protein 6.1 L (6.3-8.2) g/dL Albumin 3.0 L (3.5-5.0) g/dL Assessment and Plan (1) Acute cholecystitis Current Visit: Yes Status: Acute Code(s): K81.0 - ACUTE CHOLECYSTITIS SNOMED Code(s): 13559268 (2) Acute kidney injury Current Visit: Yes Status: Acute Code(s): N17.9 - ACUTE KIDNEY FAILURE, UNSPECIFIED SNOMED Code(s): 95631981 (3) Dehydration Current Visit: Yes Status: Acute Code(s): E86.0 - DEHYDRATION SNOMED Code(s): 18930310 (4) Elevated liver enzymes Current Visit: Yes Status: Acute Code(s): R74.8 - ABNORMAL LEVELS OF OTHER SERUM ENZYMES SNOMED Code(s): 343661004 (5) Hyperbilirubinemia Current Visit: Yes Status: Acute Code(s): E80.6 - OTHER DISORDERS OF BILIRUBIN METABOLISM SNOMED Code(s): 24071072 (6) Left lower lobe pneumonia Current Visit: Yes Status: Acute Code(s): J18.9 - PNEUMONIA, UNSPECIFIED ORGANISM SNOMED Code(s): 763544525
[2019-05-24 12:15] LABS: Glucose,Whole Blood 88 mg/dL (75-99)
--- NOTE | 2019-05-24 13:00 | ECHOF ---
Referral Reason:pre-op MEASUREMENTS -------- HEIGHT: 170.2 cm WEIGHT: 90.7 kg BP: 117/56 RVIDd: 3.3 cm (< 3.3) IVSd: 1.2 cm (0.6 - 1.1) LVIDd: 5.0 cm (3.9 - 5.3) LVPWd: 1.1 cm (0.6 - 1.1) IVSs: 1.7 cm LVIDs: 3.6 cm LVPWs: 2.0 cm LA Diam: 4.5 cm (2.7 - 3.8) LAESV Index (A-L): 36.64 ml/m Ao Diam: 3.1 cm (2.0 - 3.7) AV Cusp: 2.1 cm (1.5 - 2.6) MV EXCURSION: 15.315 mm (> 18.000) MV EF SLOPE: 40 mm/s (70 - 150) EPSS: 1.0 cm MV E Bari: 1.18 m/s MV DecT: 201 ms MV A Bari: 1.11 m/s MV E/A Ratio: 1.06 RAP: 5.00 mmHg RVSP: 20.68 mmHg FINDINGS -------- Sinus rhythm. This was a technically good study. The left ventricular size is normal. There is borderline concentric left ventricular hypertrophy. Overall left ventricular systolic function is low-normal with, an EF between 50 - 55 %. The right ventricle is mildly enlarged. LA is moderately dilated 34-39 ml/m2 The right atrium is normal in size. Lipomatous Hypertrophy of the atrial septum is present The aortic valve is trileaflet and appears structurally normal. Mild mitral annular calcification present. There is trace to mild mitral regurgitation. Mild tricuspid regurgitation present. Right ventricular systolic pressure is normal at < 35 mmHg. Trace/mild (physiologic) pulmonic regurgitation. The aortic root size is normal. Normal inferior vena cava with normal inspiratory collapse consistent with estimated right atrial pre ssure of 5 mmHg. There is no pericardial effusion. CONCLUSIONS -------- 1. Sinus rhythm. 2. This was a technically good study. 3. The left ventricular size is normal. 4. There is borderline concentric left ventricular hypertrophy. 5. Overall left ventricular systolic function is low-normal with, an EF between 50 - 55 %. 6. The right ventricle is mildly enlarged. 7. LA is moderately dilated 34-39 ml/m2 8. The right atrium is normal in size. 9. Lipomatous Hypertrophy of the atrial septum is present 10. The aortic valve is trileaflet and appears structurally normal. 11. Mild mitral annular calcification present. 12. There is trace to mild mitral regurgitation. 13. Mild tricuspid regurgitation present. 14. Right ventricular systolic pressure is normal at < 35 mmHg. 15. Trace/mild (physiologic) pulmonic regurgitation. 16. The aortic root size is normal. 17. Normal inferior vena cava with normal inspiratory collapse consistent with estimated right atrial pressure of 5 mmHg. 18. There is no pericardial effusion. PERSONAL CARE AID: IRINA Carter
--- NOTE | 2019-05-24 13:31 | P.CRDCN ---
History of Present Illness History of present illness: HISTORY OF PRESENTING ILLNESS This is a pleasant 74-year-old male past medical history significant for diabetes mellitus, hypertension, dyslipidemia, hypothyroidism and depression. He denies prior history of coronary artery disease and does not follow in the office with a psychology instructor. We have been asked to see in consultation for pre-operative evaluation. He has been experiencing symptoms of abdominal pain, increased weakness, fever, cough, decreased oral intake and altered mental status. His symptoms have been getting progressively worse over the last 1-week. Initially he was seen and [facility] and left AMA. He has undergone an ultrasound of his abdomen revealing a thickened gallbladder wall suggestive of acute cholecystitis. He is scheduled to undergo a HIDA scan today for further evaluation. Also being followed closely by GI. He is seen and examined laying flat resting comfortably in bed in no acute distress. He denies chest pain, shortness of breath, dizziness or palpitations. Echocardiogram obtained revealed preserved LV systolic function with EF 50-55% and mild TR. DIAGNOSTICS EKG reveals sinus mechanism no acute ischemic changes. Chest xray on admission reveals a left lower lobe infiltrate, repeat today reveals stranding basilar atelectasis. Laboratory reviewed, CBC 17.9, hemoglobin 12.4, platelets 339, sodium 139, potassium 4.8, creatinine 1.21, total bilirubin 3.3, AST 226, ALT 290, alkaline phosphatase 312, lactic acid 2.9, cardiac enzymes negative 1 and NT proBNP 952. Current cardiac medications include aspirin 81 mg daily, lisinopril 5 mg daily and lovastatin 20 mg at bedtime. REVIEW OF SYSTEMS At the time of my exam: CONSTITUTIONAL: Denies fever or chills. CARDIOVASCULAR: Denies chest pain, shortness of breath, orthopnea, PND or palpitations. RESPIRATORY: Denies cough. GASTROINTESTINAL: Denies abdominal pain, diarrhea, constipation, nausea or vomiting. MUSCULOSKELETAL: Denies myalgias. NEUROLOGIC: Denies numbness, tingling or weakness. ENDOCRINE: Denies fatigue, weight change, polydipsia or polyurina. GENITOURINARY: Denies burning, hematuria or urgency with micturation. HEMATOLOGIC: Denies history of anemia or bleeding. PHYSICAL EXAMINATION Blood pressure 117/56 heart rate 65 afebrile and maintaining oxygen saturation on nasal cannula. CONSTITUTIONAL: No apparent distress. HEENT: Head is normocephalic. Pupils are equal, round. Sclerae anicteric. Mucous membranes of the mouth are moist. No JVD. No carotid bruit. CHEST EXAMINATION: Lungs are clear to auscultation. No chest wall tenderness is noted on palpation or with deep breathing. HEART EXAMINATION: Regular rate and rhythm. S1, S2 heard. No murmurs, gallops or rub. ABDOMEN: Soft, nontender and round. Positive bowel sounds. EXTREMITIES: 2+ peripheral pulses, no lower extremity edema and no calf tenderness. NEUROLOGIC EXAMINATION: Patient is awake, alert and oriented x3. ASSESSMENT Acute cholecystitis Transaminitis Leukocytosis Lactic acidosis Diabetes mellitus Dyslipidemia Hypertension PLAN Clinically he is stable from a cardiac perspective. He is not in heart failure and has no symptoms of angina. Given his co-morbid conditions, specifically diabetes mellitus, he is a moderate surgical risk with no absolute contraindications. Thank you kindly for this consultation. Nurse Practitioner note has been reviewed, I agree with a documented findings and plan of care. Patient was seen and examined. Past Medical History Past Medical History: Diabetes Mellitus History of Any Multi-Drug Resistant Organisms: Unobtainable Past Surgical History: No Surgical Hx Reported Past Psychological History: Depression Smoking Status: Never smoker Past Alcohol Use History: None Reported Past Drug Use History: None Reported Medications and Allergies Home Medications Medication Instructions Recorded Confirmed Type Aspirin EC [Ecotrin Low Dose] 81 mg PO DAILY 05/23/19 05/23/19 History Cholecalciferol [Vitamin D3 (25 1,000 unit PO BID 05/23/19 05/23/19 History Mcg = 1000 Iu)] Cinnamon 1000mg + Chromium 1 tab PO BID 05/23/19 05/23/19 History Escitalopram [Lexapro] 10 mg PO DAILY 05/23/19 05/23/19 History Insulin Degludec [Tresiba 63 units SQ DAILY 05/23/19 05/23/19 History Flextouch U-100] Levothyroxine Sodium [Synthroid] 75 mcg PO DAILY 05/23/19 05/23/19 History Lisinopril [Zestril] 5 mg PO DAILY 05/23/19 05/23/19 History Loratadine [Claritin] 10 mg PO DAILY 05/23/19 05/23/19 History Lovastatin [Altoprev] 20 mg PO HS 05/23/19 05/23/19 History Multivit-Min/FA/Lycopen/Lutein 1 tab PO DAILY 05/23/19 05/23/19 History [Centrum Silver Men Tablet] [place]-3 Fatty Acids/Fish Oil [Fish 1 cap PO TID 05/23/19 05/23/19 History Oil 1,000 mg Softgel] Saw [place] 450mg 1 tab PO QID 05/23/19 05/23/19 History Tamsulosin HCl [Flomax] 0.4 mg PO DAILY 05/23/19 05/23/19 History Testosterone Cypionate 100 mg IM Q14D 05/23/19 05/23/19 History [Depo-Testosterone] metFORMIN HCL 1,000 mg PO BID 05/23/19 05/23/19 History Allergies Allergy/AdvReac Type Severity Reaction Status Date / Time No Known Allergies Allergy Verified 05/23/19 15:29 Physical Exam Vitals: Vital Signs Temp Pulse Pulse Pulse Resp BP BP 05/24/19 05:00 97.6 F 65 20 117/56 05/24/19 00:00 18 05/23/19 20:26 98.4 F 65 18 101/57 05/23/19 16:54 96.8 F L 76 20 97/54 05/23/19 16:00 79 16 100/60 05/23/19 15:30 79 18 104/60 05/23/19 15:07 87 05/23/19 15:00 77 20 117/65 05/23/19 14:57 74 05/23/19 14:30 99.2 F 82 16 100/62 05/23/19 14:00 87 18 89/55 05/23/19 13:30 95 16 101/58 Pulse Ox 05/24/19 05:00 97 05/24/19 00:00 05/23/19 20:26 97 05/23/19 16:54 94 L 05/23/19 16:00 94 L 05/23/19 15:30 94 L 05/23/19 15:07 05/23/19 15:00 98 05/23/19 14:57 05/23/19 14:30 95 05/23/19 14:00 94 L 05/23/19 13:30 92 L Intake and Output 05/23/19 05/24/19 05/24/19 22:59 06:59 14:59 Intake Total 200 350 Balance 200 350 Intake: Oral 200 350 Other: Voiding Method Urinal Urinal # Voids 1 3 Results 05/24/19 07:37 05/24/19 07:37 Cardiac Enzymes 05/23/19 05/23/19 05/24/19 Range/Units 13:21 13:21 07:37 AST 328 H 226 H (17-59) U/L Troponin I <0.012 (0.000-0.034) ng/mL Coagulation 05/23/19 Range/Units 13:21 PT 13.2 H (9.0-12.0) sec APTT 22.7 (22.0-30.0) sec CBC 05/23/19 05/24/19 Range/Units 13:21 07:37 WBC 21.3 H 17.9 H (3.8-10.6) k/uL RBC 4.56 4.09 L (4.30-5.90) m/uL Hgb 13.8 12.4 L (13.0-17.5) gm/dL Hct 41.8 38.8 L (39.0-53.0) % Plt Count 342 339 (150-450) k/uL Comprehensive Metabolic Panel 05/23/19 05/24/19 Range/Units 13:21 07:37 Sodium 131 L 139 (137-145) mmol/L Potassium 4.3 4.8 (3.5-5.1) mmol/L Chloride 97 L 102 (98-107) mmol/L Carbon Dioxide 24 27 (22-30) mmol/L BUN 25 H 28 H (9-20) mg/dL Creatinine 1.56 H 1.21 (0.66-1.25) mg/dL Glucose 55 L 70 L (74-99) mg/dL Calcium 8.4 8.3 L (8.4-10.2) mg/dL AST 328 H 226 H (17-59) U/L ALT 289 H 290 H (4-49) U/L Alkaline Phosphatase 397 H 312 H (38-126) U/L Total Protein 6.3 6.3 (6.3-8.2) g/dL Albumin 3.1 L 3.0 L (3.5-5.0) g/dL Current Medications Generic Name Dose Route Start Last Admin Trade Name Freq PRN Reason Stop Dose Admin Aspirin 81 mg 05/24/19 09:00 05/24/19 08:20 Aspirin PO 81 mg DAILY [facility] Administration Atorvastatin Calcium 10 mg 05/23/19 21:00 05/23/19 20:24 Lipitor PO 10 mg HS [facility] Administration Azithromycin 500 mg 05/24/19 16:00 Zithromax PO DAILY@1600 [facility] Enoxaparin Sodium 40 mg 05/23/19 21:30 05/23/19 21:27 Lovenox SQ 40 mg DAILY@2100 [facility] Administration Escitalopram Oxalate 10 mg 05/24/19 09:00 05/24/19 08:20 Lexapro PO 10 mg DAILY [facility] Administration Ceftriaxone Sodium 1 gm/ 50 mls @ 100 mls/hr 05/24/19 15:00 Sodium Chloride IVPB Q24H [facility] Sodium Chloride 1,000 mls @ 130 mls/hr 05/23/19 22:45 05/24/19 06:06 Saline 0.9% IV Not Given .[id number] [facility] Insulin Aspart 0 unit 05/24/19 07:30 05/24/19 12:16 Novolog SQ Not Given [facility] Protocol Insulin Detemir 30 unit 05/24/19 07:00 05/24/19 08:20 Levemir SQ Not Given DAILY@0700 [facility] Levothyroxine Sodium 75 mcg 05/24/19 06:30 05/24/19 05:12 Synthroid PO 75 mcg DAILY@0630 [facility] Administration Metformin HCl 1,000 mg 05/23/19 21:00 05/24/19 08:20 Glucophage PO 1,000 mg BID [facility] Administration Miscellaneous Information 1 each 05/23/19 15:34 Pneumonia Protocol Utilized PO ONCE PRN Per Protocol Tamsulosin HCl 0.4 mg 05/24/19 09:00 05/24/19 08:20 Flomax PO 0.4 mg DAILY [facility] Administration Intake and Output 05/23/19 05/24/19 05/24/19 22:59 06:59 14:59 Intake Total 200 350 Balance 200 350 Intake: Oral 200 350 Other: Voiding Method Urinal Urinal # Voids 1 3 05/24/19 07:37 05/24/19 07:37
[2019-05-24] MEDS ORDERED: AZITHROMYCIN 500 MG TAB PO SCH (16:00)
--- NOTE | 2019-05-24 16:47 | MR ---
EXAMINATION TYPE: MR MRCP DATE OF EXAM: 05/24/2019 COMPARISON: Gallbladder ultrasound yesterday. HISTORY: Elevated bili, rule out CBD dilation Standard multiplanar, multisequence MRI departmental protocol Multiplanar, multisequence images of the abdomen were acquired. FINDINGS: Examination is suboptimal as patient unable to hold breath. Liver/gallbladder/pancreas/biliary system: Liver is normal in size without suspicious solid or cystic mass. Liver shows mild diffuse signal dropout consistent with mild diffuse fatty infiltration. Pancr eas shows mild generalized fat replaced atrophy without concerning solid or cystic mass. MRCP images show no significant intrahepatic or extra hepatic biliary dilatation. No pancreatic ductal dilatation is seen. Gallbladder is significantly abnormal as there is fairly moderate concentric abnormal wall thickening . Thickness measures up to 16 mm axial image 24 series 501. No intraluminal focal gallstones are iden tified. Other: There are tiny bilateral pleural effusions with associated bibasilar linear atelectasis. The s pleen and both adrenal glands are felt within normal limits. No concerning renal masses or hydronephr osis. No suspicious small or large bowel dilatation. No abdominal ascites. No greater than 1 cm abdom inal adenopathy. IMPRESSION: Confirmation of abnormal gallbladder wall thickening. Without pain or sonographic positiv e García sign, gallbladder carcinoma cannot be excluded. A calculus and chronic cholecystitis are in differential. Surgical consultation advised.
[2019-05-24 16:57] LABS: Alpha Fetoprotein, Tumor Mkr <2.5 ng/mL (0.0-7.9)
--- NOTE | 2019-05-24 17:42 | NM ---
EXAMINATION TYPE: NM hepatobiliary wo EF DATE OF EXAM: 05/24/2019 COMPARISON: Gallbladder ultrasound from yesterday. Same day MRCP. HISTORY: Elevated bilirubin. Abnormal ultrasound. TECHNIQUE: After the intravenous administration of 3.75 mCi Tc 99m Mebrofenin hepatobiliary scintigra phy is performed. Immediate images post injection. FINDINGS: There is some heterogeneous diminished uptake throughout the liver. Small bowel uptake is e ventually seen after 2 hours. No uptake noted within gallbladder. Exam is carried to 4 hours without gallbladder identified and suboptimal radiotracer excretion from liver. IMPRESSION: Abnormal study. Acute cholecystitis cannot be excluded based on HIDA results.
[2019-05-24 17:48] LABS: Glucose,Whole Blood 53 mg/dL (75-99)
[2019-05-24 18:12] LABS: Hepatitis A Antibody IgM Non-Reactive (Non-Reactive)
--- NOTE | 2019-05-24 18:15 | P.CONS ---
History of Present Illness - Reason for Consult Consult date: 05/24/19 Elevated liver enzymes Requesting physician: Roberto Christine - Chief Complaint Decreased appetite, chills - History of Present Illness 74-year-old male with a medical history significant for diabetes, dyslipidemia and BPH who presents to the hospital after recent admission at outside hospital for treatment of pneumonia with complaints of decreased oral intake and chills. Currently the patient is denying any abdominal pain. He denies any nausea, vomiting, or fevers. The patient denies any history of gallstones, prior blood transfusions or IV drug use. There are questions of possible vague upper abdominal pain prior to presentation but currently this is resolved. Patient also reporting intermittent episodes of reflux and solid food dysphagia however this is not a new complaints. He also feels that he had some loose bowel movements previously but that this is resolved. He denies any anxiety or prior pacemaker placement. On presentation patient was found to have leukocytosis and elevated liver enzymes with a WBC 21.9 on presentation currently 17.9, hemog lobin 12.4, platelet count 3 39,000, INR 1.3, total bilirubin 3.3, alkaline phosphatase 312, AST 225 and ALTs 290 with negative testing for viral hepatitis. Ultrasound of the abdomen did show some thickening of the gallbladder suspicious for cholecystitis. Review of Systems REVIEW OF SYSTEMS: CONSTITUTIONAL: Denies any fevers, weight change or fatigue but there were questions of chills prior to presentation. CARDIOVASCULAR: Denies any chest pain, palpitations high or low blood pressures RESPIRATORY: Denies any shortness of breath, hemoptysis or cough. GENITOURINARY: No dysuria or hematuria, but does report dark colored urine. MUSCULOSKELETAL: No weakness reported. SKIN: Denies any new rashes or lesions, jaundice or pallor. PSYCHIATRIC: Denies any depression or anxiety. NEUROLOGY: Denies headache, denies any new focal deficits. EARS/NOSE/THROAT: No recent hearing change, congestion, nasal discharge or sore throat. EYES: No pain in eyes, discharge or change in vision. GASTROINTESTINAL: As per HPI. Past Medical History Past Medical History: Diabetes Mellitus History of Any Multi-Drug Resistant Organisms: Unobtainable Past Surgical History: No Surgical Hx Reported Past Psychological History: Depression Smoking Status: Never smoker Past Alcohol Use History: None Reported Past Drug Use History: None Reported Additional History: Past family history: Reviewed with the patient noncontributory to current medical presentation. Medications and Allergies Home Medications Medication Instructions Recorded Confirmed Type Aspirin EC [Ecotrin Low Dose] 81 mg PO DAILY 05/23/19 05/23/19 History Cholecalciferol [Vitamin D3 (25 1,000 unit PO BID 05/23/19 05/23/19 History Mcg = 1000 Iu)] Cinnamon 1000mg + Chromium 1 tab PO BID 05/23/19 05/23/19 History Escitalopram [Lexapro] 10 mg PO DAILY 05/23/19 05/23/19 History Insulin Degludec [Tresiba 63 units SQ DAILY 05/23/19 05/23/19 History Flextouch U-100] Levothyroxine Sodium [Synthroid] 75 mcg PO DAILY 05/23/19 05/23/19 History Lisinopril [Zestril] 5 mg PO DAILY 05/23/19 05/23/19 History Loratadine [Claritin] 10 mg PO DAILY 05/23/19 05/23/19 History Lovastatin [Altoprev] 20 mg PO HS 05/23/19 05/23/19 History Multivit-Min/FA/Lycopen/Lutein 1 tab PO DAILY 05/23/19 05/23/19 History [Centrum Silver Men Tablet] [place]-3 Fatty Acids/Fish Oil [Fish 1 cap PO TID 05/23/19 05/23/19 History Oil 1,000 mg Softgel] Saw [place] 450mg 1 tab PO QID 05/23/19 05/23/19 History Tamsulosin HCl [Flomax] 0.4 mg PO DAILY 05/23/19 05/23/19 History Testosterone Cypionate 100 mg IM Q14D 05/23/19 05/23/19 History [Depo-Testosterone] metFORMIN HCL 1,000 mg PO BID 05/23/19 05/23/19 History Allergies Allergy/AdvReac Type Severity Reaction Status Date / Time No Known Allergies Allergy Verified 05/23/19 15:29 Physical Exam Vitals: Vital Signs Temp Pulse Pulse Pulse Resp BP BP 05/24/19 05:00 97.6 F 65 20 117/56 05/24/19 00:00 18 05/23/19 20:26 98.4 F 65 18 101/57 05/23/19 16:54 96.8 F L 76 20 97/54 05/23/19 16:00 79 16 100/60 05/23/19 15:30 79 18 104/60 05/23/19 15:07 87 05/23/19 15:00 77 20 117/65 05/23/19 14:57 74 05/23/19 14:30 99.2 F 82 16 100/62 05/23/19 14:00 87 18 89/55 05/23/19 13:30 95 16 101/58 05/23/19 12:56 100.0 F H 106 H 18 92/56 Pulse Ox 05/24/19 05:00 97 05/24/19 00:00 05/23/19 20:26 97 05/23/19 16:54 94 L 05/23/19 16:00 94 L 05/23/19 15:30 94 L 05/23/19 15:07 05/23/19 15:00 98 05/23/19 14:57 05/23/19 14:30 95 05/23/19 14:00 94 L 05/23/19 13:30 92 L 05/23/19 12:56 92 L Intake and Output 05/23/19 05/24/19 05/24/19 22:59 06:59 14:59 Intake Total 200 350 Balance 200 350 Intake: Oral 200 350 Other: Voiding Method Urinal Urinal # Voids 1 3 On physical examination, patient appears comfortable in no apparent distress. HEAD: Normocephalic, atraumatic. EYES: No scleral icterus. No conjunctival injection. MOUTH: No lesions, tongue midline. NECK: Trachea midline, no gross abnormalities. CHEST: Clear to auscultation with no wheezing or rhonchi appreciated. HEART: Regular rate and rhythm. ABDOMEN: Soft, obese. Bowel sounds are positive. No organomegaly. No guarding or rigidity. EXTREMITIES: No pedal edema. SKIN: No rashes, no jaundice. NEUROLOGIC: Alert and oriented. No focal deficits. Results CBC & Chem 7: 05/24/19 07:37 05/24/19 07:37 Labs: Abnormal Lab Results - Last 24 Hours (Table) 05/23/19 05/23/19 05/23/19 Range/Units 13:21 13:21 13:21 WBC 21.3 H (3.8-10.6) k/uL RBC (4.30-5.90) m/uL Hgb (13.0-17.5) gm/dL Hct (39.0-53.0) % Neutrophils # 20.0 H (1.3-7.7) k/uL Lymphocytes # 0.3 L (1.0-4.8) k/uL PT 13.2 H (9.0-12.0) sec INR 1.3 H (<1.2) Sodium 131 L (137-145) mmol/L Chloride 97 L (98-107) mmol/L BUN 25 H (9-20) mg/dL Creatinine 1.56 H (0.66-1.25) mg/dL Glucose 55 L (74-99) mg/dL POC Glucose (mg/dL) (75-99) mg/dL Plasma Lactic Acid Ciro (0.7-2.0) mmol/L Calcium (8.4-10.2) mg/dL Magnesium 1.3 L (1.6-2.3) mg/dL Total Bilirubin 3.2 H (0.2-1.3) mg/dL AST 328 H (17-59) U/L ALT 289 H (4-49) U/L Alkaline Phosphatase 397 H (38-126) U/L Albumin 3.1 L (3.5-5.0) g/dL Urine Protein (Negative) Urine Bilirubin (Negative) Urine Mucus (None) /hpf 05/23/19 05/23/19 05/23/19 Range/Units 13:21 13:22 17:42 WBC (3.8-10.6) k/uL RBC (4.30-5.90) m/uL Hgb (13.0-17.5) gm/dL Hct (39.0-53.0) % Neutrophils # (1.3-7.7) k/uL Lymphocytes # (1.0-4.8) k/uL PT (9.0-12.0) sec INR (<1.2) Sodium (137-145) mmol/L Chloride (98-107) mmol/L BUN (9-20) mg/dL Creatinine (0.66-1.25) mg/dL Glucose (74-99) mg/dL POC Glucose (mg/dL) (75-99) mg/dL Plasma Lactic Acid Ciro 2.1 H* 2.9 H* (0.7-2.0) mmol/L Calcium (8.4-10.2) mg/dL Magnesium (1.6-2.3) mg/dL Total Bilirubin (0.2-1.3) mg/dL AST (17-59) U/L ALT (4-49) U/L Alkaline Phosphatase (38-126) U/L Albumin (3.5-5.0) g/dL Urine Protein 1+ H (Negative) Urine Bilirubin 2+ H (Negative) Urine Mucus Few H (None) /hpf 05/23/19 05/24/19 05/24/19 Range/Units 20:14 07:37 07:37 WBC 17.9 H (3.8-10.6) k/uL RBC 4.09 L (4.30-5.90) m/uL Hgb 12.4 L (13.0-17.5) gm/dL Hct 38.8 L (39.0-53.0) % Neutrophils # (1.3-7.7) k/uL Lymphocytes # (1.0-4.8) k/uL PT (9.0-12.0) sec INR (<1.2) Sodium (137-145) mmol/L Chloride (98-107) mmol/L BUN 28 H (9-20) mg/dL Creatinine (0.66-1.25) mg/dL Glucose 70 L (74-99) mg/dL POC Glucose (mg/dL) 138 H (75-99) mg/dL Plasma Lactic Acid Ciro (0.7-2.0) mmol/L Calcium 8.3 L (8.4-10.2) mg/dL Magnesium (1.6-2.3) mg/dL Total Bilirubin 3.3 H (0.2-1.3) mg/dL AST 226 H (17-59) U/L ALT 290 H (4-49) U/L Alkaline Phosphatase 312 H (38-126) U/L Albumin 3.0 L (3.5-5.0) g/dL Urine Protein (Negative) Urine Bilirubin (Negative) Urine Mucus (None) /hpf MRI - abdomen: report reviewed (Gallbladder thickening on MRCP without evidence of intra-or extrahepatic biliary dilatation.) Assessment and Plan (1) Elevated liver enzymes Narrative/Plan: 74-year-old male with multiple medical comorbidities presented to the hospital due to decreased oral intake and chills. Patient recently hospitalized with complaints of pneumonia. Findings on ultrasound imaging of a thickened gallbladder suspicious for cholecystitis. This was confirmed on MRCP with thickening of the gallbladder with no evidence of intra-or extra hepatic biliary dilation. The patient also had elevation in his liver enzymes in both a cholestatic and hepatocellular pattern with total bilirubin 3.3, alkaline phosphatase 312, AST 226 and ALTs 290. Denies any prior history of elevated liver enzymes to this degree but does report they have been mildly elevated in the past. Denies any high risk behavior. Likely etiology secondary to acute cholecystitis with surgical service following the patient's, however full liver serologies ordered to rule out intrinsic liver disease. Current Visit: Yes Status: Acute Code(s): R74.8 - ABNORMAL LEVELS OF OTHER SERUM ENZYMES SNOMED Code(s): 100900596 (2) Hyperbilirubinemia Current Visit: Yes Status: Acute Code(s): E80.6 - OTHER DISORDERS OF BILIRUBIN METABOLISM SNOMED Code(s): 35986329 Plan: Supportive care Continue to monitor CBC, CMP, LFTs Full liver serologies ordered to rule out intrinsic liver disease Continue broad-spectrum antibiotic therapy Appreciate recommendations from surgical service MRCP ordered and reviewed with no evidence of intra-or extra hepatic biliary dilation or obstruction No plan for ERCP at this time Thank you for allowing us to participate in the care of the patient we will continue to follow
[2019-05-24 18:23] LABS: Glucose,Whole Blood 84 mg/dL (75-99)
[2019-05-24] MEDS: PIPERACILLIN-TAZOBACTAM 3.375 GM in SODIUM CHLORIDE 0.9% 100 ML IVPB SCH (19:17)
--- NOTE | 2019-05-24 19:35 | P.PN ---
Progress Note - Text Progress Note Date: 05/24/19 Chief Complaint: Not feeling well History of presenting complaint: This is a pleasant 74-year-old patient of Dr. Chen. Patient about a week ago left [facility]. He was treated there for pneumonia. Patient now presents with decreased appetite having chills at home. Minimal cough. Nonspecific upper abdominal pain. Also worsening reflux symptoms. No chest pain. Minimal cough. Some shortness of breath. The abdominal pain did not radiate. Not related to food. It is gone now. Admitted with-pneumonia, possible cholecystitis Today-breathing is better. Earlier seen by GI, cardiology and general surgery. Patient later sent for MRCP and a HIDA scan. No abdominal pain. Review of systems: Was done for constitutional, cardiovascular, GI, pulmonary. relevant finding as above Active Medications Aspirin (Aspirin) 81 mg PO DAILY [facility] Last Admin: 05/24/19 08:20 Dose: 81 mg Documented by: Atorvastatin Calcium (Lipitor) 10 mg PO HS [facility] Last Admin: 05/23/19 20:24 Dose: 10 mg Documented by: Azithromycin (Zithromax) 500 mg PO DAILY@1600 [facility] Last Admin: 05/24/19 18:27 Dose: 500 mg Documented by: Enoxaparin Sodium (Lovenox) 40 mg SQ DAILY@2100 [facility] Last Admin: 05/23/19 21:27 Dose: 40 mg Documented by: Escitalopram Oxalate (Lexapro) 10 mg PO DAILY [facility] Last Admin: 05/24/19 08:20 Dose: 10 mg Documented by: Famotidine (Pepcid) 20 mg IV Q12HR [facility] Ceftriaxone Sodium 1 gm/ (Sodium Chloride) 50 mls @ 100 mls/hr IVPB Q24H [facility] Last Admin: 05/24/19 18:17 Dose: 100 mls/hr Documented by: Sodium Chloride (Saline 0.9%) 1,000 mls @ 130 mls/hr IV .Q7H42M [facility] Last Admin: 05/24/19 17:52 Dose: 130 mls/hr Documented by: Piperacillin Sod/Tazobactam (Sod 3.375 gm/ Sodium Chloride) 100 mls @ 25 mls/hr IVPB Q8H [facility] Last Admin: 05/24/19 19:17 Dose: 25 mls/hr Documented by: Insulin Aspart (Novolog) 0 unit SQ [facility]; Protocol Last Admin: 05/24/19 17:47 Dose: Not Given Documented by: Insulin Detemir (Levemir) 30 unit SQ DAILY@0700 [facility] Last Admin: 05/24/19 08:20 Dose: Not Given Documented by: Levothyroxine Sodium (Synthroid) 75 mcg PO DAILY@0630 [facility] Last Admin: 05/24/19 05:12 Dose: 75 mcg Documented by: Metformin HCl (Glucophage) 1,000 mg PO BID [facility] Last Admin: 05/24/19 08:20 Dose: 1,000 mg Documented by: Miscellaneous Information (Pneumonia Protocol Utilized) 1 each PO ONCE PRN PRN Reason: Per Protocol Tamsulosin HCl (Flomax) 0.4 mg PO DAILY [facility] Last Admin: 05/24/19 08:20 Dose: 0.4 mg Documented by: Physical examination: VITAL SIGNS: 98, 52, 18, 114/54, 99% on 2 L GENERAL: BMI 31.3, laying in bed, more comfortable EYES: Pupils equal. Conjunctiva normal. HEENT: External appearance of nose and ears normal, oral cavity grossly normal. NECK: JVD not raised; masses not palpable. HEART: First and second heart sounds are normal; no edema. LUNGS: Respiratory rate increased, decreased breath sound at the bases. ABDOMEN: Soft, nontender, liver spleen not palpable, no masses palpable. PSYCH: [Alert and oriented x3; mood and affect tired l. INVESTIGATIONS, reviewed in the clinical context: White count 17.9 hemoglobin 12.4 potassium 4.8 creatinine 1.21 AST 226 ALT to 90 total bilirubin 3.3 alkaline phosphatase 312 HIDA scan-delayed emptying of the gallbladder MRCP-gallbladder wall thickening Previous testing White count 21.3 hemoglobin 13.8 platelets 342 potassium 4.3 sodium 131 bun 3025 creatinine 1.56 glucose 55 lactic acid 2.1 total bilirubin 3.2 AST 328 ALT 289 alkaline phosphatase 397 UA positive for 1+ protein, bilirubin 2+ Hepatitis A IgM antibody negative Chest x-ray film personally reviewed by me-basilar infiltrate EKG tracing personally reviewed by me-normal sinus rhythm Gallbladder ultrasound-enlarged liver, gallbladder with thickened wall with pericholecystic fluid with some debris within the visualized of the dependent portions Assessment: -basal pneumonia suspect gram-negative organism and the patient was treated for pneumonia at [facility] left AMA about a week ago. Patient's had slight cough some shortness of breath, POA, improving -Probable acute cholecystitis with increased LFTs -Acute renal failure possibly ATN with hypotension-slight improvement -Obesity BMI 31.3 -Diabetes mellitus type 2, uncontrolled with hypoglycemia from decreased oral intake, slow to respond -BPH -Hyperlipidemia -Hypothyroid -Depression otherwise specified Plan: We will DC ceftriaxone and azithromycin. Zosyn was added later today. Continue with IV fluids. Encourage oral intake. Surgical decision as per general surgery. DC metformin.
[2019-05-24 20:36] LABS: Glucose,Whole Blood 114 mg/dL (75-99)
[2019-05-24] MEDS: FAMOTIDINE 20 MG/2 ML VIAL IV SCH (21:09)
[2019-05-24] MEDS: ENOXAPARIN 40 MG/0.4 ML SYRINGE SQ SCH (21:09)
[2019-05-24] MEDS: ATORVASTATIN 10 MG TAB PO SCH (21:09)
[2019-05-25] MEDS: PIPERACILLIN-TAZOBACTAM 3.375 GM in SODIUM CHLORIDE 0.9% 100 ML IVPB SCH ×3 (04:08→20:02)
[2019-05-25] MEDS: SODIUM CHLORIDE 0.9% 1,000 ML IV SCH ×3 (04:08→22:17)
[2019-05-25] MEDS: LEVOTHYROXINE 75 MCG TAB PO SCH (06:16)
[2019-05-25 06:19] LABS: HGB 11.6 gm/dL (13.0-17.5); MCH 30.2 pg (25.0-35.0); MCHC 32.2 g/dL (31.0-37.0); MCV 93.7 fL (80.0-100.0); Mean Platelet Volume 7.8; Platelet Count 337 k/uL (150-450); RBC 3.85 m/uL (4.30-5.90); RDW 13.2 % (11.5-15.5); WBC 8.7 k/uL (3.8-10.6)
[2019-05-25 06:30] LABS: Albumin 2.9 g/dL (3.5-5.0); Calcium 8.1 mg/dL (8.4-10.2); Potassium 4.5 mmol/L (3.5-5.1); Total Bilirubin 2.5 mg/dL (0.2-1.3); Total Protein 5.9 g/dL (6.3-8.2)
[2019-05-25] MEDS: INSULIN ASPART (NovoLOG) 100 UNIT/ML VIAL SQ SCH ×4 (07:26→21:23)
[2019-05-25 07:27] LABS: Glucose,Whole Blood 64 mg/dL (75-99)
[2019-05-25] MEDS: INSULIN DETEMIR (LEVEMIR) 100 UNIT/ML SYR SQ SCH (07:27)
[2019-05-25] MEDS: metFORMIN 500 MG TAB PO SCH ×2 (07:29→18:26)
[2019-05-25] MEDS: FAMOTIDINE 20 MG/2 ML VIAL IV SCH (08:24)
[2019-05-25] MEDS: TAMSULOSIN 0.4 MG CAP.ER.24H PO SCH (08:25)
[2019-05-25] MEDS: ASPIRIN 81 MG PO SCH ×2 (08:25→08:28)
[2019-05-25 08:26] LABS: Glucose,Whole Blood 105 mg/dL (75-99)
[2019-05-25] MEDS: ESCITALOPRAM 10 MG TAB PO SCH (08:33)
[2019-05-25 10:35] LABS: Ceruloplasmin 34.7 mg/dL (20.0-60.0)
[2019-05-25 10:40] LABS: Liver/Kidney Microsome Antibod 1.1 UNITS (<=20)
[2019-05-25 10:58] LABS: % Iron Saturation 24.22 (15.00-50.00)
[2019-05-25 11:15] LABS: Ferritin 659.1 ng/mL (22.0-322.0)
[2019-05-25 11:49] LABS: Glucose,Whole Blood 115 mg/dL (75-99)
--- NOTE | 2019-05-25 13:05 | P.PN ---
<Katlyn Wren - Last Filed: 05/25/19 13:01> Subjective Progress Note Date: 05/25/19 CHIEF COMPLAINT: Abnormal ultrasound HISTORY OF PRESENT ILLNESS: Patient seen and examined this morning at the bedside with Dr. Allen. Patient denies abdominal pain. Denies nausea or vo miting. Total bilirubin 2.5. AST 167. ALT 264. Alkaline phosphatase 444. PHYSICAL EXAM: VITAL SIGNS: Reviewed GENERAL: Well-developed in no acute distress. HEENT: No sclera icterus. Extraocular movements grossly intact. Moist buccal mucosa. Head is atraumatic, normocephalic. Hears conversational speech. No nasal drainage. NECK: Supple without lymphadenopathy. CHEST: Non-labored respirations and equal bilateral excursions. CARDIOVASCULAR: Regular rate with regular rhythm. Palpable 2+ radial pulses. ABDOMEN: Soft. Nondistended. Nontender. MUSCULOSKELETAL: No clubbing or cyanosis. NEUROLOGIC: No focal or lateralizing signs. Cranial nerves II through XII grossly intact. PSYCH: Appropriate affect. Alert and oriented to person, place and time. SKIN: Well perfused. Good skin turgor. ASSESSMENT: 1. Abdominal pain 2. Acute cholecystitis 3. Hyperbilirubinemia PLAN: -Continue IV antibiotics. Monitor WBC -Continue current diet. NPO at midnight -Patient to undergo robotic cholecystectomy tomorrow with Dr. Allen Nurse practitioner note has been reviewed by physician. Signing provider agrees with the documented findings, assessment, and plan of care. Objective - Vital Signs Vital signs: Vital Signs Temp 97.9 F 05/25/19 07:00 Pulse 61 05/25/19 07:00 Resp 17 05/25/19 07:00 BP 125/86 05/25/19 07:00 Pulse Ox 96 05/25/19 07:00 Intake & Output 05/24/19 05/25/19 05/25/19 18:59 06:59 18:59 Intake Total 240 540 Balance 240 540 Intake: Intake, IV Titration 100 Amount Piperacillin-Tazobactam 3 100 .375 gm In Sodium Chloride 0.9% 100 ml @ 25 mls/hr IVPB Q8H [facility] Rx#: [id number] Oral 240 440 Other: Voiding Method Toilet Toilet # Voids 2 2 1 - Labs CBC & Chem 7: 05/25/19 05:53 05/25/19 05:53 Labs: Abnormal Lab Results - Last 24 Hours (Table) 05/24/19 05/24/19 05/25/19 Range/Units 17:47 20:34 05:53 RBC (4.30-5.90) m/uL Hgb (13.0-17.5) gm/dL Hct (39.0-53.0) % Sodium 136 L (137-145) mmol/L BUN 22 H (9-20) mg/dL Glucose 72 L (74-99) mg/dL POC Glucose (mg/dL) 53 L 114 H (75-99) mg/dL Calcium 8.1 L (8.4-10.2) mg/dL Iron 54 L (65-175) ug/dL TIBC 223 L (228-460) ug/dL Ferritin 659.1 H (22.0-322.0) ng/mL Total Bilirubin 2.5 H (0.2-1.3) mg/dL AST 167 H (17-59) U/L ALT 264 H (4-49) U/L Alkaline Phosphatase 444 H (38-126) U/L Total Protein 5.9 L (6.3-8.2) g/dL Albumin 2.9 L (3.5-5.0) g/dL 05/25/19 05/25/19 05/25/19 Range/Units 05:53 07:24 08:24 RBC 3.85 L (4.30-5.90) m/uL Hgb 11.6 L (13.0-17.5) gm/dL Hct 36.0 L (39.0-53.0) % Sodium (137-145) mmol/L BUN (9-20) mg/dL Glucose (74-99) mg/dL POC Glucose (mg/dL) 64 L 105 H (75-99) mg/dL Calcium (8.4-10.2) mg/dL Iron (65-175) ug/dL TIBC (228-460) ug/dL Ferritin (22.0-322.0) ng/mL Total Bilirubin (0.2-1.3) mg/dL AST (17-59) U/L ALT (4-49) U/L Alkaline Phosphatase (38-126) U/L Total Protein (6.3-8.2) g/dL Albumin (3.5-5.0) g/dL 05/25/19 Range/Units 11:48 RBC (4.30-5.90) m/uL Hgb (13.0-17.5) gm/dL Hct (39.0-53.0) % Sodium (137-145) mmol/L BUN (9-20) mg/dL Glucose (74-99) mg/dL POC Glucose (mg/dL) 115 H (75-99) mg/dL Calcium (8.4-10.2) mg/dL Iron (65-175) ug/dL TIBC (228-460) ug/dL Ferritin (22.0-322.0) ng/mL Total Bilirubin (0.2-1.3) mg/dL AST (17-59) U/L ALT (4-49) U/L Alkaline Phosphatase (38-126) U/L Total Protein (6.3-8.2) g/dL Albumin (3.5-5.0) g/dL Microbiology - Last 24 Hours (Table) 05/24/19 19:23 Stool Culture - Preliminary Stool 05/23/19 13:21 Blood Culture - Preliminary Blood No Growth after 24 hours <Anika Allen N - Last Filed: 05/26/19 09:29> Subjective After Zosyn, white blood cell count now normal. Benefits her risk of cholecystectomy described. Patient has elevated risk for perioperative complications secondary to severity of acute cholecystitis. MRCP independent reviewed demonstrating no evidence of dilated common bile duct or findings of retained stones of the common bile duct. Severe edema of the gallbladder wall confirmed. HIDA scan also independently reviewed demonstrating absolutely no visualization of the gallbladder consistent with cystic duct obstruction. Objective - Vital Signs Vital signs: Vital Signs Temp 97.7 F 05/26/19 08:26 Pulse 80 05/26/19 08:26 Resp 18 05/26/19 08:26 BP 149/62 05/26/19 07:00 Pulse Ox 95 05/26/19 08:26 Intake & Output 05/25/19 05/26/19 05/26/19 18:59 06:59 18:59 Intake Total 150 Output Total 800 50 Balance -800 100 Intake: IV 150 Output: Urine 800 50 Other: Voiding Method Toilet Toilet Toilet Urinal # Voids 1 1 - Labs CBC & Chem 7: 05/26/19 06:40 05/26/19 06:39 Labs: Abnormal Lab Results - Last 24 Hours (Table) 05/24/19 05/25/19 05/25/19 Range/Units 07:37 05:53 11:48 RBC (4.30-5.90) m/uL Hgb (13.0-17.5) gm/dL Hct (39.0-53.0) % Lymphocytes # (Manual) (1.0-4.8) k/uL Creatinine (0.66-1.25) mg/dL Glucose (74-99) mg/dL POC Glucose (mg/dL) 115 H (75-99) mg/dL Iron 54 L (65-175) ug/dL TIBC 223 L (228-460) ug/dL Ferritin 659.1 H (22.0-322.0) ng/mL Total Bilirubin (0.2-1.3) mg/dL AST (17-59) U/L ALT (4-49) U/L Alkaline Phosphatase (38-126) U/L Total Protein (6.3-8.2) g/dL Albumin (3.5-5.0) g/dL Jnssn-5-Zafyscmrvyl <16.0 L (99.0-242.0) mg/dL 05/25/19 05/25/19 05/26/19 Range/Units 16:39 20:20 01:53 RBC (4.30-5.90) m/uL Hgb (13.0-17.5) gm/dL Hct (39.0-53.0) % Lymphocytes # (Manual) (1.0-4.8) k/uL Creatinine (0.66-1.25) mg/dL Glucose (74-99) mg/dL POC Glucose (mg/dL) 148 H 143 H 65 L (75-99) mg/dL Iron (65-175) ug/dL TIBC (228-460) ug/dL Ferritin (22.0-322.0) ng/mL Total Bilirubin (0.2-1.3) mg/dL AST (17-59) U/L ALT (4-49) U/L Alkaline Phosphatase (38-126) U/L Total Protein (6.3-8.2) g/dL Albumin (3.5-5.0) g/dL Yppjf-1-Lhxpxfetbsk (99.0-242.0) mg/dL 05/26/19 05/26/19 05/26/19 Range/Units 02:22 06:39 06:40 RBC 4.08 L (4.30-5.90) m/uL Hgb 12.3 L (13.0-17.5) gm/dL Hct 38.4 L (39.0-53.0) % Lymphocytes # (Manual) 0.51 L (1.0-4.8) k/uL Creatinine 1.32 H (0.66-1.25) mg/dL Glucose 63 L (74-99) mg/dL POC Glucose (mg/dL) 103 H (75-99) mg/dL Iron (65-175) ug/dL TIBC (228-460) ug/dL Ferritin (22.0-322.0) ng/mL Total Bilirubin 2.0 H (0.2-1.3) mg/dL AST 144 H (17-59) U/L ALT 259 H (4-49) U/L Alkaline Phosphatase 720 H (38-126) U/L Total Protein 6.1 L (6.3-8.2) g/dL Albumin 3.0 L (3.5-5.0) g/dL Xhmob-7-Smfdhlutgci (99.0-242.0) mg/dL 05/26/19 05/26/19 05/26/19 Range/Units 07:04 07:39 08:33 RBC (4.30-5.90) m/uL Hgb (13.0-17.5) gm/dL Hct (39.0-53.0) % Lymphocytes # (Manual) (1.0-4.8) k/uL Creatinine (0.66-1.25) mg/dL Glucose (74-99) mg/dL POC Glucose (mg/dL) 60 L 146 H 138 H (75-99) mg/dL Iron (65-175) ug/dL TIBC (228-460) ug/dL Ferritin (22.0-322.0) ng/mL Total Bilirubin (0.2-1.3) mg/dL AST (17-59) U/L ALT (4-49) U/L Alkaline Phosphatase (38-126) U/L Total Protein (6.3-8.2) g/dL Albumin (3.5-5.0) g/dL Iuwfu-9-Xvzotqdofkm (99.0-242.0) mg/dL Microbiology - Last 24 Hours (Table) 05/23/19 13:21 Blood Culture - Preliminary Blood No Growth after 48 hours Assessment and Plan (1) Acute cholecystitis Current Visit: Yes Status: Acute Code(s): K81.0 - ACUTE CHOLECYSTITIS SNOMED Code(s): 31667942 (2) Acute kidney injury Current Visit: Yes Status: Acute Code(s): N17.9 - ACUTE KIDNEY FAILURE, UNSPECIFIED SNOMED Code(s): 60699521 (3) Dehydration Current Visit: Yes Status: Acute Code(s): E86.0 - DEHYDRATION SNOMED Code(s): 09775704 (4) Elevated liver enzymes Current Visit: Yes Status: Acute Code(s): R74.8 - ABNORMAL LEVELS OF OTHER SERUM ENZYMES SNOMED Code(s): 970912496 (5) Hyperbilirubinemia Current Visit: Yes Status: Acute Code(s): E80.6 - OTHER DISORDERS OF BILIRUBIN METABOLISM SNOMED Code(s): 51807787 (6) Left lower lobe pneumonia Current Visit: Yes Status: Acute Code(s): J18.9 - PNEUMONIA, UNSPECIFIED ORGANISM SNOMED Code(s): 069905403
[2019-05-25 13:21] LABS: Alpha 1 Antitrypsin <16.0 mg/dL (99.0-242.0)
[2019-05-25 16:41] LABS: Glucose,Whole Blood 148 mg/dL (75-99)
--- NOTE | 2019-05-25 17:11 | P.PN ---
Subjective Progress Note Date: 05/25/19 Principal diagnosis: Elevated liver enzymes, acute cholecystitis Patient is seen lying in bed denying any abdominal pain. No nausea or vomiting. Tolerating liquids. Objective - Vital Signs Vital signs: Vital Signs Temp 97.9 F 05/25/19 07:00 Pulse 61 05/25/19 07:00 Resp 17 05/25/19 07:00 BP 125/86 05/25/19 07:00 Pulse Ox 96 05/25/19 07:00 Intake & Output 05/24/19 05/25/19 05/25/19 18:59 06:59 18:59 Intake Total 240 540 Balance 240 540 Intake: Intake, IV Titration 100 Amount Piperacillin-Tazobactam 3 100 .375 gm In Sodium Chloride 0.9% 100 ml @ 25 mls/hr IVPB Q8H [facility] Rx#: [id number] Oral 240 440 Other: Voiding Method Toilet Toilet # Voids 2 2 1 - Exam On physical examination, patient appears comfortable in no apparent distress. HEAD: Normocephalic, atraumatic. EYES: No scleral icterus. No conjunctival injection. MOUTH: No lesions, tongue midline. NECK: Trachea midline, no gross abnormalities. ABDOMEN: Soft, obese. Bowel sounds are positive. No organomegaly. No guarding or rigidity. EXTREMITIES: No pedal edema. SKIN: No rashes, no jaundice. NEUROLOGIC: Alert and oriented x3. No focal deficits. - Labs CBC & Chem 7: 05/25/19 05:53 05/25/19 05:53 Labs: Abnormal Lab Results - Last 24 Hours (Table) 05/24/19 05/24/19 05/25/19 Range/Units 17:47 20:34 05:53 RBC (4.30-5.90) m/uL Hgb (13.0-17.5) gm/dL Hct (39.0-53.0) % Sodium 136 L (137-145) mmol/L BUN 22 H (9-20) mg/dL Glucose 72 L (74-99) mg/dL POC Glucose (mg/dL) 53 L 114 H (75-99) mg/dL Calcium 8.1 L (8.4-10.2) mg/dL Total Bilirubin 2.5 H (0.2-1.3) mg/dL AST 167 H (17-59) U/L ALT 264 H (4-49) U/L Alkaline Phosphatase 444 H (38-126) U/L Total Protein 5.9 L (6.3-8.2) g/dL Albumin 2.9 L (3.5-5.0) g/dL 05/25/19 05/25/19 05/25/19 Range/Units 05:53 07:24 08:24 RBC 3.85 L (4.30-5.90) m/uL Hgb 11.6 L (13.0-17.5) gm/dL Hct 36.0 L (39.0-53.0) % Sodium (137-145) mmol/L BUN (9-20) mg/dL Glucose (74-99) mg/dL POC Glucose (mg/dL) 64 L 105 H (75-99) mg/dL Calcium (8.4-10.2) mg/dL Total Bilirubin (0.2-1.3) mg/dL AST (17-59) U/L ALT (4-49) U/L Alkaline Phosphatase (38-126) U/L Total Protein (6.3-8.2) g/dL Albumin (3.5-5.0) g/dL Microbiology - Last 24 Hours (Table) 05/24/19 19:23 Stool Culture - Preliminary Stool 05/23/19 13:21 Blood Culture - Preliminary Blood No Growth after 24 hours Assessment and Plan (1) Elevated liver enzymes Narrative/Plan: 74-year-old male with multiple medical comorbidities presented to the hospital due to decreased oral intake and chills. Patient recently hospitalized with complaints of pneumonia. Findings on ultrasound imaging of a thickened gallbladder suspicious for cholecystitis. This was confirmed on MRCP with thickening of the gallbladder with no evidence of intra-or extra hepatic biliary dilation. The patient also had elevation in his liver enzymes in both a cholestatic and hepatocellular pattern with total bilirubin 3.3, alkaline phosphatase 312, AST 226 and ALTs 290. Denies any prior history of elevated liver enzymes to this degree but does report they have been mildly elevated in the past. Denies any high risk behavior. Likely etiology secondary to acute cholecystitis with surgical service following the patient's, however full liver serologies ordered to rule out intrinsic liver disease and been negative to date. Current Visit: Yes Status: Acute Code(s): R74.8 - ABNORMAL LEVELS OF OTHER SERUM ENZYMES SNOMED Code(s): 546722733 (2) Hyperbilirubinemia Current Visit: Yes Status: Acute Code(s): E80.6 - OTHER DISORDERS OF BILIRUBIN METABOLISM SNOMED Code(s): 62744203 Plan: Supportive care Continue to monitor CBC, CMP, LFTs Full liver serologies ordered to rule out intrinsic liver disease Continue broad-spectrum antibiotic therapy Appreciate recommendations from surgical service MRCP ordered and reviewed with no evidence of intra-or extra hepatic biliary dilation or obstruction No plan for ERCP at this time Plan is for cholecystectomy with surgical service tomorrow Thank you for allowing us to participate in the care of the patient we will continue to follow
--- NOTE | 2019-05-25 19:58 | P.PN ---
Progress Note - Text Progress Note Date: 05/25/19 Chief Complaint: Not feeling well History of presenting complaint: This is a pleasant 74-year-old patient of Dr. Chen. Patient about a week ago left [facility]. He was treated there for pneumonia. Patient now presents with decreased appetite having chills at home. Minimal cough. Nonspecific upper abdominal pain. Also worsening reflux symptoms. No chest pain. Minimal cough. Some shortness of breath. The abdominal pain did not radiate. Not related to food. It is gone now. Admitted with-pneumonia, acute cholecystitis. Started on ceftriaxone and Zithromax. Then switched to IV Zosyn. Had a HIDA scan and MRCP. Suggestive acute cholecystitis. Today-no further respiratory symptoms. Currently no abdominal pain. No nausea vomiting. Review of systems: Was done for constitutional, cardiovascular, GI, pulmonary. relevant finding as above Active Medications Acetaminophen (Tylenol Tab) 1,000 mg PO ONCE ONE Stop: 05/26/19 07:01 Aspirin (Aspirin) 81 mg PO DAILY [facility] Last Admin: 05/25/19 08:28 Dose: Not Given Documented by: Atorvastatin Calcium (Lipitor) 10 mg PO HS [facility] Last Admin: 05/24/19 21:09 Dose: 10 mg Documented by: Enoxaparin Sodium (Lovenox) 40 mg SQ DAILY@2100 [facility] Last Admin: 05/24/19 21:09 Dose: 40 mg Documented by: Escitalopram Oxalate (Lexapro) 10 mg PO DAILY [facility] Last Admin: 05/25/19 08:33 Dose: 10 mg Documented by: Famotidine (Pepcid) 20 mg PO Q12HR [facility] Sodium Chloride (Saline 0.9%) 1,000 mls @ 130 mls/hr IV .Q7H42M [facility] Last Admin: 05/25/19 12:56 Dose: 130 mls/hr Documented by: Piperacillin Sod/Tazobactam (Sod 3.375 gm/ Sodium Chloride) 100 mls @ 25 mls/hr IVPB Q8H [facility] Last Admin: 05/25/19 10:33 Dose: 25 mls/hr Documented by: Cefazolin Sodium 2 gm/ Sodium (Chloride) 50 mls @ 100 mls/hr IVPB ONCE ONE Stop: 05/26/19 07:29 Indocyanine Green (Ic Green) 7.5 mg IV ONCE ONE Stop: 05/26/19 07:01 Insulin Aspart (Novolog) 0 unit SQ ACHS [facility]; Protocol Last Admin: 05/25/19 16:48 Dose: Not Given Documented by: Insulin Detemir (Levemir) 30 unit SQ DAILY@0700 [facility] Last Admin: 05/25/19 07:27 Dose: Not Given Documented by: Levothyroxine Sodium (Synthroid) 75 mcg PO DAILY@0630 [facility] Last Admin: 05/25/19 06:16 Dose: 75 mcg Documented by: Metformin HCl (Glucophage) 1,000 mg PO BID [facility] Last Admin: 05/25/19 18:26 Dose: Not Given Documented by: Miscellaneous Information (Pneumonia Protocol Utilized) 1 each PO ONCE PRN PRN Reason: Per Protocol Tamsulosin HCl (Flomax) 0.4 mg PO DAILY [facility] Last Admin: 05/25/19 08:25 Dose: 0.4 mg Documented by: Physical examination: VITAL SIGNS: 98.4, 61, 14, 163/76, 96% on room air GENERAL: Sitting of age of the bed, comfortable EYES: Pupils equal. Conjunctiva normal. HEENT: External appearance of nose and ears normal, oral cavity grossly normal. NECK: JVD not raised; masses not palpable. HEART: First and second heart sounds are normal; no edema. LUNGS: Respiratory rate normal, decreased breath sound at the bases. ABDOMEN: Soft, nontender, liver spleen not palpable, no masses palpable. PSYCH: [Alert and oriented x3; mood and affect normal INVESTIGATIONS, reviewed in the clinical context: White count 8.7 hemoglobin 11.6 potassium 4.5 creatinine 1.17 AST 167 ALT 264 alkaline phosphatase 444 [id number]-Zzkxu-29, 105 Previous testing White count 21.3 hemoglobin 13.8 platelets 342 potassium 4.3 sodium 131 bun 3025 creatinine 1.56 glucose 55 lactic acid 2.1 total bilirubin 3.2 AST 328 ALT 289 alkaline phosphatase 397 UA positive for 1+ protein, bilirubin 2+ Hepatitis A IgM antibody negative Chest x-ray film personally reviewed by me-basilar infiltrate EKG tracing personally reviewed by me-normal sinus rhythm Gallbladder ultrasound-enlarged liver, gallbladder with thickened wall with pericholecystic fluid with some debris within the visualized of the dependent portions HIDA scan-delayed emptying of the gallbladder MRCP-gallbladder wall thickening Assessment: -basal pneumonia suspect gram-negative organism and the patient was treated for pneumonia at [facility] left AMA about a week ago. Patient's had slight cough some shortness of breath, POA, improved -acute cholecystitis with increased LFTs, POA -Acute renal failure possibly ATN with improved -Obesity BMI 31.3 -Diabetes mellitus type 2, uncontrolled with hypoglycemia from decreased oral intake, slow to respond -BPH -Hyperlipidemia -Hypothyroid -Depression otherwise specified Plan: Continue with IV Zosyn. IV fluids. Pending cholecystectomy tomorrow. KAIN metformin. Discussed with patient.
[2019-05-25] MEDS: FAMOTIDINE 20 MG TAB PO SCH (20:02)
[2019-05-25] MEDS: ENOXAPARIN 40 MG/0.4 ML SYRINGE SQ SCH (20:02)
[2019-05-25] MEDS: ATORVASTATIN 10 MG TAB PO SCH (20:02)
[2019-05-25 20:22] LABS: Glucose,Whole Blood 143 mg/dL (75-99)
[2019-05-26 01:55] LABS: Glucose,Whole Blood 65 mg/dL (75-99)
[2019-05-26 02:24] LABS: Glucose,Whole Blood 103 mg/dL (75-99)
[2019-05-26] MEDS: PIPERACILLIN-TAZOBACTAM 3.375 GM in SODIUM CHLORIDE 0.9% 100 ML IVPB SCH ×3 (04:25→20:26)
[2019-05-26] MEDS: SODIUM CHLORIDE 0.9% 1,000 ML IV SCH ×3 (04:26→20:26)
[2019-05-26] MEDS: LEVOTHYROXINE 75 MCG TAB PO SCH (05:17)
[2019-05-26 06:59] LABS: HCT 38.4 % (39.0-53.0); HGB 12.3 gm/dL (13.0-17.5); MCH 30.2 pg (25.0-35.0); MCHC 32.1 g/dL (31.0-37.0); MCV 94.1 fL (80.0-100.0); Mean Platelet Volume 7.9; Platelet Count 336 k/uL (150-450); RBC 4.08 m/uL (4.30-5.90); RDW 13.3 % (11.5-15.5); WBC 7.3 k/uL (3.8-10.6)
[2019-05-26] MEDS ORDERED: INDOCYANINE GREEN 25 MG VIAL IV ONE (07:00)
[2019-05-26 07:06] LABS: Glucose,Whole Blood 60 mg/dL (75-99)
[2019-05-26] MEDS ORDERED: DEXTROSE 50% SYRINGE 50 ML IVP STA (07:06)
[2019-05-26 07:11] LABS: Calcium 8.5 mg/dL (8.4-10.2); Potassium 4.5 mmol/L (3.5-5.1); Total Protein 6.1 g/dL (6.3-8.2)
[2019-05-26] MEDS: INSULIN DETEMIR (LEVEMIR) 100 UNIT/ML SYR SQ SCH (07:27)
[2019-05-26] MEDS: INSULIN ASPART (NovoLOG) 100 UNIT/ML VIAL SQ SCH ×4 (07:28→22:55)
[2019-05-26] MEDS: ASPIRIN 81 MG PO SCH (07:28)
[2019-05-26] MEDS: ACETAMINOPHEN TAB 500 MG TAB PO ONE ×2 (07:28→08:34)
[2019-05-26] MEDS: ESCITALOPRAM 10 MG TAB PO SCH (07:29)
[2019-05-26] MEDS: TAMSULOSIN 0.4 MG CAP.ER.24H PO SCH (07:29)
[2019-05-26] MEDS: FAMOTIDINE 20 MG TAB PO SCH ×2 (07:29→20:27)
[2019-05-26 07:41] LABS: Glucose,Whole Blood 146 mg/dL (75-99)
[2019-05-26] MEDS ORDERED: IV FLUID CONTINUATION 950 ML IV ONE (08:25)
[2019-05-26 08:49] LABS: Glucose,Whole Blood 138 mg/dL (75-99)
[2019-05-26 08:56] LABS: Eosinophils # (M) 0.07 k/uL (0-0.7); Lymphocytes # (M) 0.51 k/uL (1.0-4.8); Monocytes # (M) 0.22 k/uL (0-1.0); Neutrophils % (M) 89 %; Nucleated Red Blood Cells 0 /100 WBC (0-0); Polychromasia Present; Total Cells Counted 100
[2019-05-26 08:57] LABS: Anisocytosis (M) Present; Poikilocytosis (M) Present
[2019-05-26] MEDS ORDERED: ONDANSETRON 4 MG/2 ML VIAL IVP ONE ×2 (08:59→14:25)
[2019-05-26] MEDS ORDERED: DEXAMETHASONE SOD PHOSPHATE 10 MG/ML 1 ML VIAL IV ONE ×2 (09:00→14:25)
[2019-05-26] MEDS ORDERED: PHENYLEPHRINE-0.9% NACL SYG 1 MG/10 ML SYRINGE ONE (09:09)
[2019-05-26] MEDS ORDERED: PROPOFOL 10 MG/ML 20 ML VIAL IV ONE (09:09)
[2019-05-26] MEDS ORDERED: ROCURONIUM BROMIDE 10 MG/ML 5 ML VIAL IV ONE (09:09)
[2019-05-26] MEDS ORDERED: MIDAZOLAM 2 MG/2 ML VIAL ONE (09:09)
[2019-05-26] MEDS ORDERED: fentaNYL (PF) 50 MCG/ML 2 ML AMP ONE (09:09)
[2019-05-26] MEDS ORDERED: SUCCINYLCHOLINE CHLORIDE 100 MG/5 ML SYR IV ONE (09:09)
[2019-05-26] MEDS ORDERED: GLYCOPYRROLATE 0.2 MG/ML 2 ML VIAL ONE (09:09)
[2019-05-26] MEDS ORDERED: NEOSTIGMINE 1 MG/ML 10 ML VIAL ONE (09:09)
[2019-05-26] MEDS ORDERED: LIDOCAINE 1% INJ 10MG/ML (20 ML MDV) ONE (09:09)
[2019-05-26] MEDS ORDERED: BUPIVACAIN-EPI 0.25%-1:200,000 30 ML VIAL SQ ONE (09:38)
[2019-05-26] MEDS ORDERED: SODIUM CHLORIDE 0.9% 50 ML with ceFAZolin 2,000 MG IV ONE ×2 (09:38)
[2019-05-26] MEDS ORDERED: LACTATED RINGERS 1,000 ML IV ONE (10:35)
--- NOTE | 2019-05-26 11:30 | CDI ---
Documentation Clarification Form Date: 05/26/2019 11:10:47 AM From: Yany CalleRameshKATIE gross, CCDS Admit Date: 05/23/2019 03:34:00 PM Patient Name: Evaristo Cassidy Visit Number: [id number] Discharge Date: ATTENTION: The Clinical Documentation Specialists (CDI) and [facility] Coding Staff appreciate your assistance in clarifying documentation. Please respond to the clarification below the line at the bottom and electronically sign. The CDI & [facility] Coding staff will review the response and follow-up if needed. Please note: Queries are made part of the Legal Health Record. If you have any questions, please contact the author of this message via ITS. Dr. Roberto Christine: The patient presented with the following per the 05/22 ED note: "Generalized weakness. He has had decreased oral intake chills and shakes since last night just generally not feeling well he stated decreased oral intake/appetite. He was admitted to [facility] about a week and a half ago and signed himself out ...He states he was having some abdominal pain at that time he states his urine output has been diminished." Per the 05/22 History & Physical: "Patient about a week ago left [facility] AMA. He was treated there for pneumonia. Patient now presents with decreased appetite having chills at home. Minimal cough. Nonspecific upper abdominal pain." History/Risk Factors: Diabetes, Depression, BPH, Hyperlipidemia, Hypertension, Clinical Indicators: Presented with the above symptoms on 05/22 to the ED, admitted for pneumonia, acute cholecystitis & acute renal failure with possible ATN. VS 05/22: T 100.0^, P 106^, R 18, BP 92/56*, PO 92 RA LAB: WBC 21.3^, Neut 20.0^, Na 131*, BUN 25^, Cr 1.56^, Glucose 55*, Lactic Acid 2/1^^, 2.9^^. Elev liver enzymes. Blood & stool cultures negative (preliminary) Treatment: IV fluid bolus 1,000 mls @ 999 mls/hr, IV fluid bolus 500 mls @ 999 mls/hr, IV fluid 1,000 mls @ 75 mls/hr, IV Rocephin, INH Albuterol, IV MagSulfate, IV Azithromycin. In your professional opinion, please clarify if these findings signify one of the following conditions, whether the condition is POA, and cause, if known: Sepsis ruled out Sepsis, please specify cause if known: Severe Sepsis, please clarify if associated with organ failure Other, please specify Unable to determine Present on Admission: Yes or No (Last Revision: June 2017) Sepsis from acute cholecystitis, POA MTDD
[2019-05-26] MEDS ORDERED: ONDANSETRON 4 MG/2 ML VIAL IVP PRN (12:44)
[2019-05-26] MEDS ORDERED: NALOXONE 0.4 MG/ML 1 ML VIAL IV PRN (12:44)
[2019-05-26] MEDS ORDERED: HYDROmorphone 1 MG/ML 1 ML SYRINGE IVP PRN (12:46)
--- NOTE | 2019-05-26 13:11 | P.OP ---
Date of Procedure: 05/26/19 Description of Procedure: SURGEON: DUTCH OQUENDO MD PREOPERATIVE DIAGNOSES: 1. Acute cholecystitis 2. Right upper quadrant abdominal pain 3. Abnormal HIDA scan and MRCP for acute cholecystitis 4. Diabetes type 2, insulin-dependent 5. Hyperlipidemia 6. Hypertensive heart disease 7. Pneumonia with bibasilar infiltrate 8. Depressive disorder 9. Hyperbilirubinemia 10. Elevated liver function tests 11. Acute kidney injury 12. Benign prostate hypertrophy with lower obstructive urinary symptoms 13. Obesity due to excess calories, BMI 31.3 14. Hypothyroidism 15. Hypotestosteronism POSTOPERATIVE DIAGNOSES: 1. Gangrenous purulent acute cholecystitis with cystic duct obstruction due to gallstones 2. Right upper quadrant abdominal pain 3. Abnormal HIDA scan and MRCP for acute cholecystitis 4. Diabetes type 2, insulin-dependent 5. Hyperlipidemia 6. Hypertensive heart disease 7. Pneumonia with bibasilar infiltrate 8. Depressive disorder 9. Hyperbilirubinemia 10. Elevated liver function tests 11. Acute kidney injury 12. Benign prostate hypertrophy with lower obstructive urinary symptoms 13. Obesity due to excess calories, BMI 31.3 14. Hypothyroidism 15. Hypotestosteronism 16. Right upper quadrant peritoneal adhesions greater omentum to entire gallbladder OPERATION: 1. Robotic-assisted da Adan Xi laparoscopic lysis of adhesions over 1 hour 2. Robotic-assisted da Adan Xi laparoscopic subtotal cholecystectomy, multiport with FIREFLY 3. Placement of round #19 drain at right upper quadrant ESTIMATED BLOOD LOSS: 75 mL. SPECIMENS REMOVED: 1. Gallbladder. 2. Gallbladder fluid COMPLICATIONS: 1. None OPERATIVE FINDINGS: 1. Acute gangrenous purulent cholecystitis with cystic duct obstruction due to gallstones 2. Entire gallbladder encased in omentum requiring over 1 or laparoscopic lysis of adhesions at the right upper quadrant 3. Hepatic gallbladder wall completely necrotic with purulent preventing suture closure or staple closure for cholecystectomy 4. Over 85-90% gallbladder removed with transection and at infundibulum 5. Common bile duct completely secured with concrete adhesions of cystic duct including infundibulum 6. Drain placed at hepatic fossa and staple line of subtotal cholecystectomy 7. Purulent drainage of bile from the gallbladder consistent with gangrenous purulent cholecystitis INDICATIONS: The patient is a 74-year-old male who presents with acute cholecystitis per ultrasound, HIDA scan and MRCP. He presented initially with sepsis with white count over 21,000 including fevers. He also presented with pneumonia and elevated liver enzymes including bilirubin. Surgical intervention with a laparoscopic cholecystectomy was described. Benefits and risks were described at length including injury to the biliary tree, bleeding, infection, need for further surgery. Robotic assisted laparoscopic approach was described. Informed consent was obtained. DESCRIPTION OF PROCEDURE: Patient was brought to the operating room, placed in supine position. After general induction, the abdomen had been prepped and draped in standard sterile fashion. The robotic da Adan XI system was primed. After a timeout protocol was performed, the patient had been prepped and draped in standard sterile fashion. Ioban draping was placed. The patient was injected with indocyanine green. A 5 mm 0 degrees laparoscopic trocar entry was performed along the left upper quadrant. The abdomen was insufflated to 15 mmHg pressure which was tolerated well. Diagnostic laparoscopy demonstrated no injury to bowel viscera or mesentery. The entire gallbladder was encased in the omentum at the right upper quadrant. Next, two 8 mm robotic ports were placed along the right upper abdomen. An 8-mm port was maintained along the epigastrium. Another 8 mm port was placed along the left upper abdominal wall after exchanging the 5 mm port. Please note that the ports were placed at least 10 to 15 cm away from the target anatomy of the gallbladder. The robot was docked along the right lateral abdomen. Using a grasper for arm 1, a grasper for arm 4, including hook cautery for arm 3, the robotic system was docked and primed as described. A 30 camera was used. Patient was placed in 20 reverse Trendelenburg with right side up 6. Instruments were interchanged by the assistant kitchen manager including hook cautery, Bovie cautery and clip appliers. Additional instruments used were vessel sealer including robotic suction java swing developer and robotic stapler 45 mm green loads. I sat at the console. The entire gallbladder was encased in omentum where lysis of adhesions over 1 hour were performed to release the gallbladder from the surrounding tissues using hook artery as well as vessel sealer. Hemostasis was checked. Once released from surrounding tissues, the common bile duct completely encased in scar tissue including obscured by the infundibulum of the gallbladder. The gallbladder fundus was retracted towards the abdominal wall. A dome down technique was performed removing the gallbladder from the hepatic fossa. Additionally the gallbladder was intrahepatic adding complexity to the case. Using hook cautery and a vessel sealer, carefully the gallbladder was dissected from the liver bed. The entire hepatic wall of the gallbladder was necrotic and easily friable and disintegrated upon handling. The cystic structures were not visualized secondary to the intense concrete-like adhesions involving the common bile duct. Dissection was carried to the infundibulum of the gallbladder. Moderate purulent bile emanated from the gallbladder lumen including small 2-3 mm black black gallstones. The lumen was irrigated with normal saline solution. The hepatic fossa was cauterized secondary to acute gangrenous cholecystitis. The gallbladder was dissected towards the infundibulum to allow for subtotal cholecystectomy. Again tissue was friable and easily disintegrated upon handling. The trocar at the left upper abdomen was exchanged for a 12 mm staple trocar. At the infundibulum, 3 staple loads of 45 mm green stapler were fired. Upon final inspection, the posterior wall of the gallbladder consistent with the hepatic wall of the gallbladder had easily disintegrated. Tissues were unhealth y to allow for suture closure of the gallbladder lumen. The abdomen was irrigated with normal saline. Final look of the liver bed was completely hemostatic. The robot was undocked. I re-scrubbed into the case. A round #19 drain was placed along the hepatic fossa at the staple line. The drain exited via the right lateral abdominal wall with a 2-0 nylon stitch and bulb suction. Aerobic and anaerobic cultures were obtained of the gallbladder fluid via the WILBERTO drain. Using a 10 mm Endo Catch bag via the left upper quadrant incision, the specimen was removed from the abdominal cavity. 0 Vicryl and Tyrel Mata was applied to close the fascial defect. All pneumoperitoneum instruments were evacuated from the abdominal cavity. The incisions were reapproximated using 4-0 Monocryl in an interrupted subcuticular fashion. Please note along the trocar sites, local anesthetic was placed as a field block prior to insertion of all instruments. The skin was cleansed with dilute hy drogen peroxide. Liquid glue was applied to the skin. Optifoam dressing was placed along the WILBERTO drain site. At the end of the procedure needle, sponge, and instrument count had been verified correct by the salesperson surgical appliances. The patient was transferred to postanesthesia care unit in stable condition. Intraoperative findings were described to the patient's family including intraoperative images demonstrating a completely gangrenous purulent cholecystitis with easy disintegration of the tissue. Expectation of bile leak from the staple line was described consistent with the patient's condition. Possibility of additional intervention including ERCP was also reviewed which the patient's family understood.
[2019-05-26 13:12] LABS: Glucose,Whole Blood 122 mg/dL (75-99)
[2019-05-26] MEDS ORDERED: HYDROmorphone 0.5 MG/0.5 ML SYRINGE IVP ONE (13:12)
[2019-05-26] MEDS ORDERED: HYDROmorphone 0.5 MG/0.5 ML SYRINGE IVP PRN (14:25)
[2019-05-26] MEDS ORDERED: SCOPOLAMINE 1.5MG/72HR PATCH TRANSDERM ONE (14:25)
[2019-05-26] MEDS: LACTATED RINGERS 1,000 ML IV SCH (14:41)
[2019-05-26 16:46] LABS: Glucose,Whole Blood 139 mg/dL (75-99)
[2019-05-26] MEDS ORDERED: TAMSULOSIN 0.4 MG CAP.ER.24H PO STA (20:11)
[2019-05-26] MEDS ORDERED: ESCITALOPRAM 10 MG TAB PO STA (20:12)
[2019-05-26] MEDS: ATORVASTATIN 10 MG TAB PO SCH (20:26)
[2019-05-26] MEDS: ENOXAPARIN 40 MG/0.4 ML SYRINGE SQ SCH (20:26)
[2019-05-26] MEDS: HYDROcodone/APAP 5-325MG 1 EACH TAB PO PRN (20:30)
[2019-05-26 20:38] LABS: Glucose,Whole Blood 319 mg/dL (75-99)
[2019-05-26 21:40] LABS: Glucose,Whole Blood 317 mg/dL (75-99)
--- NOTE | 2019-05-26 21:45 | P.PN ---
Progress Note - Text Progress Note Date: 05/26/19 Chief Complaint: Not feeling well History of presenting complaint: This is a pleasant 74-year-old patient of Dr. Chen. Patient about a week ago left [facility]. He was treated there for pneumonia. Patient now presents with decreased appetite having chills at home. Minimal cough. Nonspecific upper abdominal pain. Also worsening reflux symptoms. No chest pain. Minimal cough. Some shortness of breath. The abdominal pain did not radiate. Not related to food. It is gone now. Admitted with-pneumonia, acute cholecystitis. Started on ceftriaxone and Zithromax. Then switched to IV Zosyn. Had a HIDA scan and MRCP. Suggestive acute cholecystitis. Today-Underwent cholecystectomy. Has a WILBERTO drain. Some pain is present. No nausea vomiting. Review of systems: Was done for constitutional, cardiovascular, GI, pulmonary. relevant finding as above Active Medications Hydrocodone Bitart/Acetaminophen ([place] 5-325) 1 each PO Q4HR PRN PRN Reason: Pain Aspirin (Aspirin) 81 mg PO DAILY [facility] Last Admin: 05/26/19 07:28 Dose: Not Given Documented by: Atorvastatin Calcium (Lipitor) 10 mg PO HS [facility] Last Admin: 05/26/19 20:26 Dose: 10 mg Documented by: Enoxaparin Sodium (Lovenox) 40 mg SQ DAILY@2100 [facility] Last Admin: 05/26/19 20:26 Dose: 40 mg Documented by: Escitalopram Oxalate (Lexapro) 10 mg PO DAILY [facility] Last Admin: 05/26/19 07:29 Dose: Not Given Documented by: Famotidine (Pepcid) 20 mg PO Q12HR [facility] Last Admin: 05/26/19 20:27 Dose: 20 mg Documented by: Hydromorphone HCl (Dilaudid) 1 mg IVP Q3HR PRN PRN Reason: Moderate to Severe Pain Hydromorphone HCl (Dilaudid) 0.5 mg IVP Q5M PRN PRN Reason: Pain Control Stop: 05/27/19 14:26 Sodium Chloride (Saline 0.9%) 1,000 mls @ 130 mls/hr IV .Q7H42M [facility] Last Admin: 05/26/19 20:26 Dose: 130 mls/hr Documented by: Piperacillin Sod/Tazobactam (Sod 3.375 gm/ Sodium Chloride) 100 mls @ 25 mls/hr IVPB Q8H [facility] Last Admin: 05/26/19 20:26 Dose: 25 mls/hr Documented by: Lactated Ringer's (Lactated Ringers) 1,000 mls @ 20 mls/hr IV .Q24H [facility] Last Admin: 05/26/19 14:41 Dose: Not Given Documented by: Insulin Aspart (Novolog) 0 unit SQ ACHS [facility]; Protocol Last Admin: 05/26/19 16:58 Dose: Not Given Documented by: Insulin Detemir (Levemir) 30 unit SQ DAILY@0700 [facility] Last Admin: 05/26/19 07:27 Dose: Not Given Documented by: Levothyroxine Sodium (Synthroid) 75 mcg PO DAILY@0630 [facility] Last Admin: 05/26/19 05:17 Dose: Not Given Documented by: Miscellaneous Information (Pneumonia Protocol Utilized) 1 each PO ONCE PRN PRN Reason: Per Protocol Naloxone HCl (Narcan) 0.2 mg IV Q2M PRN PRN Reason: Opioid Reversal Ondansetron HCl (Zofran) 4 mg IVP Q6HR PRN PRN Reason: Nausea And Vomiting Tamsulosin HCl (Flomax) 0.4 mg PO DAILY [facility] Last Admin: 05/26/19 07:29 Dose: Not Given Documented by: Physical examination: VITAL SIGNS: 87.6, 68, 14, 122/71, 96% room air GENERAL: Laying in bed, but tired EYES: Pupils equal. Conjunctiva normal. HEENT: External appearance of nose and ears normal, oral cavity grossly normal. NECK: JVD not raised; masses not palpable. HEART: First and second heart sounds are normal; no edema. LUNGS: Respiratory rate normal, decreased breath sound at the bases. ABDOMEN: Soft, tender, WILBERTO drain on the right side with bloody drainage, liver spleen not palpable, no masses palpable. PSYCH: [Alert and oriented x3; mood and affect normal INVESTIGATIONS, reviewed in the clinical context: White count 7.3 hemoglobin 12.3 pressure 4.5 creatinine 1.32 Total bilirubin 2 AST 144 ALT 259 alkaline phosphatase 720 Previous testing White count 21.3 hemoglobin 13.8 platelets 342 potassium 4.3 sodium 131 bun 3025 creatinine 1.56 glucose 55 lactic acid 2.1 total bilirubin 3.2 AST 328 ALT 289 alkaline phosphatase 397 UA positive for 1+ protein, bilirubin 2+ Hepatitis A IgM antibody negative Chest x-ray film personally reviewed by me-basilar infiltrate EKG tracing personally reviewed by me-normal sinus rhythm Gallbladder ultrasound-enlarged liver, gallbladder with thickened wall with pericholecystic fluid with some debris within the visualized of the dependent portions HIDA scan-delayed emptying of the gallbladder MRCP-gallbladder wall thickening Assessment: -basal pneumonia suspect gram-negative organism and the patient was treated for pneumonia at [facility] left AMA about a week ago. , POA, improved -acute gangrenous purulent cholecystitis, the cystic duct obstruction with gallstones POA -Acute renal failure possibly ATN with improved -Obesity BMI 31.3 -Diabetes mellitus type 2, uncontrolled with hypoglycemia from decreased oral intake, slow to respond -BPH -Hyperlipidemia -Hypothyroid -Depression otherwise specified Plan: Patient to continue with IV Zosyn. We'll also add IV Flagyl. Other medications to continue. IV fluids. Currently in clear liquids. Discussed with the patient.
[2019-05-26 22:52] LABS: Glucose,Whole Blood 254 mg/dL (75-99)
--- NOTE | 2019-05-26 22:52 | P.PN ---
Subjective Progress Note Date: 05/26/19 Principal diagnosis: Elevated liver enzymes, acute gangrenous cholecystitis Attempted to see patient but not in room, currently undergoing laparoscopic cholecystectomy for gangrenous cholecystitis. Patient initially seen with elevated liver enzymes likely related to underlying cholecystitis which is been trending down. Full liver serologies negative to date. Objective - Vital Signs Vital signs: Vital Signs Temp 97.7 F 05/26/19 08:26 Pulse 80 05/26/19 08:26 Resp 18 05/26/19 08:26 BP 149/62 05/26/19 07:00 Pulse Ox 95 05/26/19 08:26 Intake & Output 05/25/19 05/26/19 05/26/19 18:59 06:59 18:59 Intake Total 200 Output Total 800 50 Balance -800 150 Intake: IV 200 Output: Urine 800 50 Other: Voiding Method Toilet Toilet Toilet Urinal # Voids 1 1 - Labs CBC & Chem 7: 05/26/19 06:40 05/26/19 06:39 Labs: Abnormal Lab Results - Last 24 Hours (Table) 05/24/19 05/25/19 05/25/19 Range/Units 07:37 05:53 11:48 RBC (4.30-5.90) m/uL Hgb (13.0-17.5) gm/dL Hct (39.0-53.0) % Lymphocytes # (Manual) (1.0-4.8) k/uL Creatinine (0.66-1.25) mg/dL Glucose (74-99) mg/dL POC Glucose (mg/dL) 115 H (75-99) mg/dL Iron 54 L (65-175) ug/dL TIBC 223 L (228-460) ug/dL Ferritin 659.1 H (22.0-322.0) ng/mL Total Bilirubin (0.2-1.3) mg/dL AST (17-59) U/L ALT (4-49) U/L Alkaline Phosphatase (38-126) U/L Total Protein (6.3-8.2) g/dL Albumin (3.5-5.0) g/dL Pqxrq-3-Heyjcvsgmxn <16.0 L (99.0-242.0) mg/dL 05/25/19 05/25/19 05/26/19 Range/Units 16:39 20:20 01:53 RBC (4.30-5.90) m/uL Hgb (13.0-17.5) gm/dL Hct (39.0-53.0) % Lymphocytes # (Manual) (1.0-4.8) k/uL Creatinine (0.66-1.25) mg/dL Glucose (74-99) mg/dL POC Glucose (mg/dL) 148 H 143 H 65 L (75-99) mg/dL Iron (65-175) ug/dL TIBC (228-460) ug/dL Ferritin (22.0-322.0) ng/mL Total Bilirubin (0.2-1.3) mg/dL AST (17-59) U/L ALT (4-49) U/L Alkaline Phosphatase (38-126) U/L Total Protein (6.3-8.2) g/dL Albumin (3.5-5.0) g/dL Bwomz-4-Qquhnepoxos (99.0-242.0) mg/dL 05/26/19 05/26/19 05/26/19 Range/Units 02:22 06:39 06:40 RBC 4.08 L (4.30-5.90) m/uL Hgb 12.3 L (13.0-17.5) gm/dL Hct 38.4 L (39.0-53.0) % Lymphocytes # (Manual) 0.51 L (1.0-4.8) k/uL Creatinine 1.32 H (0.66-1.25) mg/dL Glucose 63 L (74-99) mg/dL POC Glucose (mg/dL) 103 H (75-99) mg/dL Iron (65-175) ug/dL TIBC (228-460) ug/dL Ferritin (22.0-322.0) ng/mL Total Bilirubin 2.0 H (0.2-1.3) mg/dL AST 144 H (17-59) U/L ALT 259 H (4-49) U/L Alkaline Phosphatase 720 H (38-126) U/L Total Protein 6.1 L (6.3-8.2) g/dL Albumin 3.0 L (3.5-5.0) g/dL Lfaer-8-Ntmtxuvmzqb (99.0-242.0) mg/dL 05/26/19 05/26/19 05/26/19 Range/Units 07:04 07:39 08:33 RBC (4.30-5.90) m/uL Hgb (13.0-17.5) gm/dL Hct (39.0-53.0) % Lymphocytes # (Manual) (1.0-4.8) k/uL Creatinine (0.66-1.25) mg/dL Glucose (74-99) mg/dL POC Glucose (mg/dL) 60 L 146 H 138 H (75-99) mg/dL Iron (65-175) ug/dL TIBC (228-460) ug/dL Ferritin (22.0-322.0) ng/mL Total Bilirubin (0.2-1.3) mg/dL AST (17-59) U/L ALT (4-49) U/L Alkaline Phosphatase (38-126) U/L Total Protein (6.3-8.2) g/dL Albumin (3.5-5.0) g/dL Qjdcx-2-Xmwwdgzhkun (99.0-242.0) mg/dL Microbiology - Last 24 Hours (Table) 05/23/19 13:21 Blood Culture - Preliminary Blood No Growth after 48 hours Assessment and Plan (1) Elevated liver enzymes Narrative/Plan: 74-year-old male with multiple medical comorbidities presented to the hospital due to decreased oral intake and chills. Patient recently hospitalized with complaints of pneumonia. Findings on ultrasound imaging of a thickened gallbladder suspicious for cholecystitis. This was confirmed on MRCP with thickening of the gallbladder with no evidence of intra-or extra hepatic biliary dilation. The patient also had elevation in his liver enzymes in both a cholestatic and hepatocellular pattern with total bilirubin 3.3, alkaline phosphatase 312, AST 226 and ALTs 290. Denies any prior history of elevated liver enzymes to this degree but does report they have been mildly elevated in the past. Denies any high risk behavior. Likely etiology secondary to acute cholecystitis with surgical service following the patient's, however full liver serologies ordered to rule out intrinsic liver disease and been negative to date. Current Visit: Yes Status: Acute Code(s): R74.8 - ABNORMAL LEVELS OF OTHER SERUM ENZYMES SNOMED Code(s): 510039699 (2) Hyperbilirubinemia Current Visit: Yes Status: Acute Code(s): E80.6 - OTHER DISORDERS OF BILIRUBIN METABOLISM SNOMED Code(s): 30255855
[2019-05-27] MEDS: HYDROcodone/APAP 5-325MG 1 EACH TAB PO PRN ×3 (03:52→21:17)
[2019-05-27] MEDS: BENZOCAINE/MENTHOL LOZENG 1 EACH LOZENGE MUCOUS MEM PRN ×2 (03:58→16:42)
[2019-05-27] MEDS: PIPERACILLIN-TAZOBACTAM 3.375 GM in SODIUM CHLORIDE 0.9% 100 ML IVPB SCH ×3 (04:03→19:33)
[2019-05-27] MEDS: SODIUM CHLORIDE 0.9% 1,000 ML IV SCH ×3 (04:04→19:33)
[2019-05-27] MEDS: LEVOTHYROXINE 75 MCG TAB PO SCH (05:28)
[2019-05-27 06:50] LABS: Glucose,Whole Blood 118 mg/dL (75-99)
[2019-05-27] MEDS: INSULIN DETEMIR (LEVEMIR) 100 UNIT/ML SYR SQ SCH (07:24)
[2019-05-27] MEDS: ASPIRIN 81 MG PO SCH (07:24)
[2019-05-27] MEDS: TAMSULOSIN 0.4 MG CAP.ER.24H PO SCH (07:24)
[2019-05-27] MEDS: ESCITALOPRAM 10 MG TAB PO SCH (07:24)
[2019-05-27] MEDS: FAMOTIDINE 20 MG TAB PO SCH ×2 (07:24→21:17)
[2019-05-27] MEDS: INSULIN ASPART (NovoLOG) 100 UNIT/ML VIAL SQ SCH ×4 (07:38→21:17)
[2019-05-27 07:40] LABS: Basophils % (A) 0 %; Eosinophils # (A) 0.1 k/uL (0-0.7); Eosinophils % (A) 0 %; HCT 41.7 % (39.0-53.0); HGB 13.3 gm/dL (13.0-17.5); Lymphocytes # (A) 0.9 k/uL (1.0-4.8); Lymphocytes % (A) 6 %; MCH 30.3 pg (25.0-35.0); MCV 94.8 fL (80.0-100.0); Mean Platelet Volume 7.7; Monocytes # (A) 0.6 k/uL (0-1.0); Monocytes % (A) 4 %; Neutrophils # (A) 12.2 k/uL (1.3-7.7); Neutrophils % (A) 87 %; Platelet Count 389 k/uL (150-450); RDW 13.4 % (11.5-15.5); WBC 13.9 k/uL (3.8-10.6)
[2019-05-27 07:52] LABS: Albumin 3.2 g/dL (3.5-5.0); Calcium 8.6 mg/dL (8.4-10.2); Potassium 5.3 mmol/L (3.5-5.1); Total Bilirubin 1.5 mg/dL (0.2-1.3); Total Protein 6.6 g/dL (6.3-8.2)
[2019-05-27 11:38] LABS: Glucose,Whole Blood 104 mg/dL (75-99)
--- NOTE | 2019-05-27 11:46 | P.PN ---
<Katlyn Wren - Last Filed: 05/27/19 11:46> Subjective Progress Note Date: 05/27/19 CHIEF COMPLAINT: Abnormal ultrasound HISTORY OF PRESENT ILLNESS: Patient is status post robotic-assisted laparoscopic lysis of adhesions and subtotal cholecystectomy. POD #1. Patient examined this morning at the bedside with Dr. Allen. Patient reports his pain is tolerable. Tolerating clear liquid diet. No nausea or vomiting. WBC 13.9. Bilirubin 1.5. AST 73. ALT 196. Alkaline phosphatase 635. PHYSICAL EXAM: VITAL SIGNS: Reviewed GENERAL: Well-developed in no acute distress. HEENT: No sclera icterus. Extraocular movements grossly intact. Moist buccal m ucosa. Head is atraumatic, normocephalic. Hears conversational speech. No nasal drainage. NECK: Supple without lymphadenopathy. CHEST: Non-labored respirations and equal bilateral excursions. CARDIOVASCULAR: Regular rate with regular rhythm. Palpable 2+ radial pulses. ABDOMEN: Soft. Nondistended. Surgical sites clean dry intact. WILBERTO drain with serosanguineous drainage in tubing. Bulb drainage has a very slight greenish hue to it. MUSCULOSKELETAL: No clubbing or cyanosis. NEUROLOGIC: No focal or lateralizing signs. Cranial nerves II through XII grossly intact. PSYCH: Appropriate affect. Alert and oriented to person, place and time. SKIN: Well perfused. Good skin turgor. ASSESSMENT: 1. Gangrenous purulent acute cholecystitis with cystic duct obstruction due to gallstones 2. Right upper quadrant abdominal pain 3. Abnormal HIDA scan and MRCP for acute cholecystitis 4. Diabetes type 2, insulin-dependent 5. Hyperlipidemia 6. Hypertensive heart disease 7. Pneumonia with bibasilar infiltrate 8. Depressive disorder 9. Hyperbilirubinemia 10. Elevated liver function tests 11. Acute kidney injury 12. Benign prostate hypertrophy with lower obstructive urinary symptoms 13. Obesity due to excess calories, BMI 31.3 14. Hypothyroidism 15. Hypotestosteronism 16. Right upper quadrant peritoneal adhesions greater omentum to entire gallbladder PLAN: -Continue IV antibiotics. Monitor WBC -Advance diet to full liquids -Incentive spirometer -Activity as tolerated -Monitor CMP daily. Monitor WILBERTO drainage. Patient high risk for postoperative bile leak. GI remains on consult. Nurse practitioner note has been reviewed by physician. Signing provider agrees with the documented findings, assessment, and plan of care. Objective - Vital Signs Vital signs: Vital Signs Temp 97.7 F 05/27/19 07:00 Pulse 67 05/27/19 07:00 Resp 18 05/27/19 07:00 BP 113/71 05/27/19 07:00 Pulse Ox 91 L 05/27/19 07:00 Intake & Output 05/26/19 05/27/19 05/27/19 18:59 06:59 18:59 Intake Total 1600 Output Total 155 1260 250 Balance 1445 -1260 -250 Weight 90.718 kg Intake: IV 1600 Output: Drainage 30 60 Abdomen 30 60 Urine 50 1200 250 Estimated Blood Loss 75 Other: Voiding Method Toilet Toilet Urinal Urinal # Voids 1 1 - Labs CBC & Chem 7: 05/27/19 07:01 05/27/19 07:01 Labs: Abnormal Lab Results - Last 24 Hours (Table) 05/26/19 05/26/19 05/26/19 Range/Units 13:10 16:44 20:36 WBC (3.8-10.6) k/uL Neutrophils # (1.3-7.7) k/uL Lymphocytes # (1.0-4.8) k/uL Potassium (3.5-5.1) mmol/L Carbon Dioxide (22-30) mmol/L Glucose (74-99) mg/dL POC Glucose (mg/dL) 122 H 139 H 319 H (75-99) mg/dL Total Bilirubin (0.2-1.3) mg/dL AST (17-59) U/L ALT (4-49) U/L Alkaline Phosphatase (38-126) U/L Albumin (3.5-5.0) g/dL 05/26/19 05/26/19 05/27/19 Range/Units 21:38 22:51 06:46 WBC (3.8-10.6) k/uL Neutrophils # (1.3-7.7) k/uL Lymphocytes # (1.0-4.8) k/uL Potassium (3.5-5.1) mmol/L Carbon Dioxide (22-30) mmol/L Glucose (74-99) mg/dL POC Glucose (mg/dL) 317 H 254 H 118 H (75-99) mg/dL Total Bilirubin (0.2-1.3) mg/dL AST (17-59) U/L ALT (4-49) U/L Alkaline Phosphatase (38-126) U/L Albumin (3.5-5.0) g/dL 05/27/19 05/27/19 Range/Units 07:01 07:01 WBC 13.9 H (3.8-10.6) k/uL Neutrophils # 12.2 H (1.3-7.7) k/uL Lymphocytes # 0.9 L (1.0-4.8) k/uL Potassium 5.3 H (3.5-5.1) mmol/L Carbon Dioxide 31 H (22-30) mmol/L Glucose 115 H (74-99) mg/dL POC Glucose (mg/dL) (75-99) mg/dL Total Bilirubin 1.5 H (0.2-1.3) mg/dL AST 73 H (17-59) U/L ALT 196 H (4-49) U/L Alkaline Phosphatase 635 H (38-126) U/L Albumin 3.2 L (3.5-5.0) g/dL Microbiology - Last 24 Hours (Table) 05/26/19 12:00 Gram Stain - Preliminary Other - Other Wound Culture - Preliminary Gram Neg Bacilli 05/26/19 12:00 Anaerobic Culture - Preliminary Gallbladder 05/24/19 19:23 Stool Culture - Preliminary Stool 05/23/19 13:21 Blood Culture - Preliminary Blood No Growth after 72 hours <Anika Allen - Last Filed: 05/28/19 13:02> Subjective Patient seen and evaluated. Intraoperative findings of complete gangrenous cholecystitis with high risk of bile leak due to patient's co-morbid conditions and poor integrity of tissue discussed. WILBERTO output remains serosanguinous. LFTs are moderately improving. Await cultures to tailor antibiotics. Prolonged hospitilization described for severity of cholecysitis. Objective - Vital Signs Vital signs: Vital Signs Temp 97.6 F 05/28/19 02:00 Pulse 58 L 05/28/19 02:00 Resp 18 05/28/19 02:00 BP 139/83 05/28/19 02:00 Pulse Ox 93 L 05/28/19 02:00 Intake & Output 05/27/19 05/28/19 05/28/19 18:59 06:59 18:59 Intake Total 800 Output Total 1550 520 200 Balance -750 -520 -200 Intake: Intake, IV Titration 800 Amount Sodium Chloride 0.9% 1, 800 000 ml @ 130 mls/hr IV . Q7H42M [facility] Rx#:[id number] Output: Drainage 20 Abdomen 20 Urine 1550 500 200 Other: Voiding Method Toilet Urinal # Voids 2 1 1 - Labs CBC & Chem 7: 05/28/19 06:37 05/28/19 06:37 Labs: Abnormal Lab Results - Last 24 Hours (Table) 05/27/19 05/27/19 05/28/19 Range/Units 16:54 20:12 02:43 WBC (3.8-10.6) k/uL RBC (4.30-5.90) m/uL Hgb (13.0-17.5) gm/dL Hct (39.0-53.0) % Neutrophils # (1.3-7.7) k/uL Glucose (74-99) mg/dL POC Glucose (mg/dL) 102 H 177 H 61 L (75-99) mg/dL Calcium (8.4-10.2) mg/dL ALT (4-49) U/L Alkaline Phosphatase (38-126) U/L Total Protein (6.3-8.2) g/dL Albumin (3.5-5.0) g/dL 05/28/19 05/28/19 05/28/19 Range/Units 06:37 06:37 11:36 WBC 12.3 H (3.8-10.6) k/uL RBC 4.11 L (4.30-5.90) m/uL Hgb 12.5 L (13.0-17.5) gm/dL Hct 38.7 L (39.0-53.0) % Neutrophils # 10.3 H (1.3-7.7) k/uL Glucose 73 L (74-99) mg/dL POC Glucose (mg/dL) 249 H (75-99) mg/dL Calcium 8.0 L (8.4-10.2) mg/dL ALT 134 H (4-49) U/L Alkaline Phosphatase 480 H (38-126) U/L Total Protein 5.9 L (6.3-8.2) g/dL Albumin 2.8 L (3.5-5.0) g/dL 05/28/19 Range/Units 12:42 WBC (3.8-10.6) k/uL RBC (4.30-5.90) m/uL Hgb (13.0-17.5) gm/dL Hct (39.0-53.0) % Neutrophils # (1.3-7.7) k/uL Glucose (74-99) mg/dL POC Glucose (mg/dL) 248 H (75-99) mg/dL Calcium (8.4-10.2) mg/dL ALT (4-49) U/L Alkaline Phosphatase (38-126) U/L Total Protein (6.3-8.2) g/dL Albumin (3.5-5.0) g/dL Microbiology - Last 24 Hours (Table) 05/26/19 12:00 Gram Stain - Final Other - Other Wound Culture - Final Klebsiella pneumoniae 05/26/19 12:00 Anaerobic Culture - Preliminary Gallbladder 05/24/19 19:23 Stool Culture - Final Stool 05/23/19 13:21 Blood Culture - Preliminary Blood No Growth after 96 hours Assessment and Plan (1) Acute cholecystitis Current Visit: Yes Status: Acute Code(s): K81.0 - ACUTE CHOLECYSTITIS SNOMED Code(s): 56359286 (2) Acute kidney injury Current Visit: Yes Status: Acute Code(s): N17.9 - ACUTE KIDNEY FAILURE, UNSPECIFIED SNOMED Code(s): 37526949 (3) Dehydration Current Visit: Yes Status: Acute Code(s): E86.0 - DEHYDRATION SNOMED Code(s): 25033091 (4) Elevated liver enzymes Current Visit: Yes Status: Acute Code(s): R74.8 - ABNORMAL LEVELS OF OTHER SERUM ENZYMES SNOMED Code(s): 502499145 (5) Hyperbilirubinemia Current Visit: Yes Status: Acute Code(s): E80.6 - OTHER DISORDERS OF BILIRUBIN METABOLISM SNOMED Code(s): 36780893 (6) Left lower lobe pneumonia Current Visit: Yes Status: Acute Code(s): J18.9 - PNEUMONIA, UNSPECIFIED ORGANISM SNOMED Code(s): 884542325
[2019-05-27 16:56] LABS: Glucose,Whole Blood 102 mg/dL (75-99)
--- NOTE | 2019-05-27 17:25 | P.PN ---
Progress Note - Text Progress Note Date: 05/27/19 Chief Complaint: Not feeling well History of presenting complaint: This is a pleasant 74-year-old patient of Dr. Chen. Patient about a week ago left [facility]. He was treated there for pneumonia. Patient now presents with decreased appetite having chills at home. Minimal cough. Nonspecific upper abdominal pain. Also worsening reflux symptoms. No chest pain. Minimal cough. Some shortness of breath. The abdominal pain did not radiate. Not related to food. It is gone now. Admitted with-pneumonia, acute cholecystitis. Started on ceftriaxone and Zithromax. Then switched to IV Zosyn. Had a HIDA scan and MRCP.-Suggestive acute cholecystitis. May 25-underwent cholecystectomy. WILBERTO drain placed. Today-. Patient was a clear liquid diet. Advance to full liquid. No flatus or bowel movement. Pain control. Her nausea vomiting. Up in a chair. Review of systems: Was done for constitutional, cardiovascular, GI, pulmonary. relevant finding as above Physical examination: VITAL SIGNS: 97.7, 67, 18, heart rhythm 30 no 71, 91% GENERAL: Sitting on a chair, more cheerful EYES: Pupils equal. Conjunctiva normal. HEENT: External appearance of nose and ears normal, oral cavity grossly normal. NECK: JVD not raised; masses not palpable. HEART: First and second heart sounds are normal; no edema. LUNGS: Respiratory rate normal, decreased breath sound at the bases. ABDOMEN: Soft, tender, WILBERTO drain on the right side liver spleen not palpable, no masses palpable. PSYCH: [Alert and oriented x3; mood and affect normal INVESTIGATIONS, reviewed in the clinical context: White count 13.9 hemoglobin 13.3 potassium 5.3 creatinine 1.2 Bilirubin 1.5 AST 73 ALT 196 Previous testing White count 21.3 hemoglobin 13.8 platelets 342 potassium 4.3 sodium 131 bun 3025 creatinine 1.56 glucose 55 lactic acid 2.1 total bilirubin 3.2 AST 328 ALT 289 alkaline phosphatase 397 UA positive for 1+ protein, bilirubin 2+ Hepatitis A IgM antibody negative Chest x-ray film personally reviewed by me-basilar infiltrate EKG tracing personally reviewed by me-normal sinus rhythm Gallbladder ultrasound-enlarged liver, gallbladder with thickened wall with pericholecystic fluid with some debris within the visualized of the dependent portions HIDA scan-delayed emptying of the gallbladder MRCP-gallbladder wall thickening Assessment: -basal pneumonia suspect gram-negative organism and the patient was treated for pneumonia at [facility] left AMA about a week ago. , POA, improved -acute gangrenous purulent cholecystitis, the cystic duct obstruction with gallstones POA-status post cholecystectomy -Acute renal failure possibly ATN with improved -Obesity BMI 31.3 -Diabetes mellitus type 2, uncontrolled with hypoglycemia from decreased oral intake, -BPH -Hyperlipidemia -Hypothyroid -Depression otherwise specified Plan: Patient advanced to full liquids. Told to ambulate. On IV Flagyl IV Zosyn. Accu-Cheks improving. Discussed with patient.
[2019-05-27] MEDS: metroNIDAZOLE-NS PMX 500 MG in SALINE 1 100ML.BAG IVPB SCH ×2 (18:17→23:39)
--- NOTE | 2019-05-27 19:05 | PN ---
PROGRESS NOTE DATE OF DICTATION: 05/27/2019 This patient is a 74-year-old pleasant white male who was admitted to the hospital with decreased appetite and vague abdominal discomfort and subsequently was noted to have elevated LFTs and jaundice. He did have a HIDA scan as well as MRCP that showed everything suggestive of acute cholecystitis, and hence he underwent laparoscopic cholecystectomy by Dr. Allen yesterday. We have been following him because of elevated serum transaminases which over the period of time have been gradually improving. At the time of admission to the hospital, bilirubin was 3.3. Now it is 1.8. Serum transaminases have improved. He did have an MRCP prior to the gallbladder surgery that did not show any evidence of gallstones. He has a WILBERTO drain in place following the gallbladder surgery for clinical concern for bile leak, but the patient has had only 80 mL of serosanguineous drainage in the WILBERTO drain so far. Overall he is feeling good. He does complain of some vague abdominal pain. PHYSICAL EXAMINATION: He appears comfortable. No apparent distress. VITAL SIGNS: Stable. Blood pressure is 114/73, pulse rate 79, temperature 98.1. HEENT examination unremarkable. Conjunctivae pink. Sclerae anicteric. Oral cavity no lesions. NECK: No JVD or lymph node enlargement. CHEST: Clear to auscultation. HEART: Regular rate and rhythm. ABDOMEN: Soft. It was slightly tender in the epigastric area. WILBERTO drain in place which had about 30 mL of serosanguineous fluid noted. EXTREMITIES: No pedal edema. SKIN: No rashes. NEUROLOGIC: Alert and oriented x3. No focal deficits. LABS: Labs from today show WBC 13.9, hemoglobin 13.3, platelets normal. Basic metabolic panel is within normal limits. BUN 31, creatinine 1.2. AST and ALT are 73 and 196, respectively. T-bilirubin is 1.5 and alkaline phosphatase is 635. IMPRESSION: 1. Acute cholecystitis, status post gallbladder surgery yesterday with a WILBERTO drain in place; clinically doing well. No significant drainage from the WILBERTO to suggest bile leak. 2. Elevated liver function tests and jaundice at the time of admission to the hospital. Serum transaminases as well as bilirubin are gradually improving. MRCP prior to gallbladder surgery did not show any evidence of filling defects in the CBD. 3. Acute renal failure, which is improving. 4. History of diabetes mellitus. 5. Hyperlipidemia. RECOMMENDATIONS: 1. Agree with advancing diet. 2. Monitor WILBERTO drain on a close basis. 3. Repeat serum transaminases in the morning. 4. Continue with IV antibiotics. 5. Since the WILBERTO drain is not significant, we will continue to watch him closely. No indication for an ERCP at the present time. Will follow with you. Thank you for this consultation. MMODL / IJN: [id number] /
[2019-05-27] MEDS: LACTATED RINGERS 1,000 ML IV SCH (19:42)
[2019-05-27 20:13] LABS: Glucose,Whole Blood 177 mg/dL (75-99)
[2019-05-27] MEDS: ENOXAPARIN 40 MG/0.4 ML SYRINGE SQ SCH (21:16)
[2019-05-27] MEDS: ATORVASTATIN 10 MG TAB PO SCH (21:17)
[2019-05-28 02:46] LABS: Glucose,Whole Blood 61 mg/dL (75-99)
[2019-05-28] MEDS: HYDROcodone/APAP 5-325MG 1 EACH TAB PO PRN ×5 (02:48→21:51)
[2019-05-28 03:05] LABS: Glucose,Whole Blood 95 mg/dL (75-99)
[2019-05-28] MEDS: PIPERACILLIN-TAZOBACTAM 3.375 GM in SODIUM CHLORIDE 0.9% 100 ML IVPB SCH ×3 (03:05→17:59)
[2019-05-28] MEDS: SODIUM CHLORIDE 0.9% 1,000 ML IV SCH ×2 (03:24→13:52)
[2019-05-28] MEDS: LEVOTHYROXINE 75 MCG TAB PO SCH (04:52)
[2019-05-28 06:51] LABS: Glucose,Whole Blood 76 mg/dL (75-99)
[2019-05-28] MEDS: metroNIDAZOLE-NS PMX 500 MG in SALINE 1 100ML.BAG IVPB SCH (07:17)
[2019-05-28] MEDS: ESCITALOPRAM 10 MG TAB PO SCH (07:18)
[2019-05-28] MEDS: ASPIRIN 81 MG PO SCH (07:18)
[2019-05-28] MEDS: TAMSULOSIN 0.4 MG CAP.ER.24H PO SCH (07:18)
[2019-05-28] MEDS: FAMOTIDINE 20 MG TAB PO SCH ×2 (07:18→21:52)
[2019-05-28 08:04] LABS: Albumin 2.8 g/dL (3.5-5.0); Potassium 4.6 mmol/L (3.5-5.1); Total Bilirubin 1.2 mg/dL (0.2-1.3); Total Protein 5.9 g/dL (6.3-8.2)
[2019-05-28] MEDS: INSULIN DETEMIR (LEVEMIR) 100 UNIT/ML SYR SQ SCH (09:19)
[2019-05-28] MEDS ORDERED: MAGNESIUM HYDROXIDE 2,400 MG/10 ML CUP PO STA (09:34)
[2019-05-28] MEDS ORDERED: MAGNESIUM HYDROXIDE 2,400 MG/10 ML CUP PO ONE (09:52)
[2019-05-28] MEDS ORDERED: MAGNESIUM HYDROXIDE 2,400 MG/10 ML CUP PO PRN (10:01)
--- NOTE | 2019-05-28 10:01 | P.PN ---
<Katlyn Wren - Last Filed: 05/28/19 09:52> Subjective Progress Note Date: 05/28/19 CHIEF COMPLAINT: Abnormal ultrasound HISTORY OF PRESENT ILLNESS: Patient is status post robotic-assisted laparoscopic lysis of adhesions and subtotal cholecystectomy. POD #2. Patient examined this morning at the bedside with Dr. Allen. Patient reports his pain is tolerable. Tolerating full liquid diet. No nausea or vomiting. He is passing flatus. He has not had a bowel movement. Bilirubin 1.2. AST 51. ALT 134. Alkaline phosphatase 480. PHYSICAL EXAM: VITAL SIGNS: Reviewed GENERAL: Well-developed in no acute distress. HEENT: No sclera icterus. Extraocular movements grossly intact. Moist buccal mucosa. Head is atraumatic, normocephalic. Hears conversational speech. No nasal drainage. NECK: Supple without lymphadenopathy. CHEST: Non-labored respirations and equal bilateral excursions. CARDIOVASCULAR: Regular rate with regular rhythm. Palpable 2+ radial pulses. ABDOMEN: Soft. Nondistended. Surgical sites clean dry intact. WILBERTO drain with serosanguineous drainage in tubing. MUSCULOSKELETAL: No clubbing or cyanosis. NEUROLOGIC: No focal or lateralizing signs. Cranial nerves II through XII grossly intact. PSYCH: Appropriate affect. Alert and oriented to person, place and time. SKIN: Well perfused. Good skin turgor. ASSESSMENT: 1. Gangrenous purulent acute cholecystitis with cystic duct obstruction due to gallstones 2. Right upper quadrant abdominal pain 3. Abnormal HIDA scan and MRCP for acute cholecystitis 4. Diabetes type 2, insulin-dependent 5. Hyperlipidemia 6. Hypertensive heart disease 7. Pneumonia with bibasilar infiltrate 8. Depressive disorder 9. Hyperbilirubinemia 10. Elevated liver function tests 11. Acute kidney injury 12. Benign prostate hypertrophy with lower obstructive urinary symptoms 13. Obesity due to excess calories, BMI 31.3 14. Hypothyroidism 15. Hypotestosteronism 16. Right upper quadrant peritoneal adhesions greater omentum to entire gallbladder PLAN: -Continue IV antibiotics. Monitor WBC -Advance diet -Milk of magnesia x 1 dose -Incentive spirometer -Activity as tolerated -Monitor CMP daily. Monitor WILBERTO drainage. Patient high risk for postoperative bile leak. GI remains on consult. -Discussed discharge planning with patient. Patient refusing home care nurse to come to his house due to coronavirus. Would like to continue to closely monitor WILBERTO drainage as patient remains high risk for bile leak. Patient also would benefit from at least another 48 hours of IV antibiotics. Recommend holding discharge until Friday. Patients WILBERTO drain will be discontinued Friday before he is discharged home. Patient to be discharged home on oral antibiotics as well. Nurse practitioner note has been reviewed by physician. Signing provider agrees with the documented findings, assessment, and plan of care. Objective - Vital Signs Vital signs: Vital Signs Temp 97.6 F 05/28/19 02:00 Pulse 58 L 05/28/19 02:00 Resp 18 05/28/19 02:00 BP 139/83 05/28/19 02:00 Pulse Ox 93 L 05/28/19 02:00 Intake & Output 05/27/19 05/28/19 05/28/19 18:59 06:59 18:59 Intake Total 800 Output Total 1550 520 Balance -750 -520 Intake: Intake, IV Titration 800 Amount Sodium Chloride 0.9% 1, 800 000 ml @ 130 mls/hr IV . Q7H42M [facility] Rx#:[id number] Output: Drainage 20 Abdomen 20 Urine 1550 500 Other: Voiding Method Toilet Urinal # Voids 2 1 - Labs CBC & Chem 7: 05/27/19 07:01 05/28/19 06:37 Labs: Abnormal Lab Results - Last 24 Hours (Table) 05/27/19 05/27/19 05/27/19 Range/Units 11:32 16:54 20:12 Glucose (74-99) mg/dL POC Glucose (mg/dL) 104 H 102 H 177 H (75-99) mg/dL Calcium (8.4-10.2) mg/dL ALT (4-49) U/L Alkaline Phosphatase (38-126) U/L Total Protein (6.3-8.2) g/dL Albumin (3.5-5.0) g/dL 05/28/19 05/28/19 Range/Units 02:43 06:37 Glucose 73 L (74-99) mg/dL POC Glucose (mg/dL) 61 L (75-99) mg/dL Calcium 8.0 L (8.4-10.2) mg/dL ALT 134 H (4-49) U/L Alkaline Phosphatase 480 H (38-126) U/L Total Protein 5.9 L (6.3-8.2) g/dL Albumin 2.8 L (3.5-5.0) g/dL Microbiology - Last 24 Hours (Table) 05/24/19 19:23 Stool Culture - Final Stool 05/23/19 13:21 Blood Culture - Preliminary Blood No Growth after 96 hours 05/26/19 12:00 Gram Stain - Preliminary Other - Other Wound Culture - Preliminary Gram Neg Bacilli <Anika Allen - Last Filed: 05/28/19 13:04> Subjective As above. Patient seen and evaluated with above. Patient is high risk for bile leak due to poor integrity of tissue. Continue with IV antibiotics. May advance diet. Plan for WILBERTO removal pending low output Objective - Vital Signs Vital signs: Vital Signs Temp 97.6 F 05/28/19 02:00 Pulse 58 L 05/28/19 02:00 Resp 18 05/28/19 02:00 BP 139/83 05/28/19 02:00 Pulse Ox 93 L 05/28/19 02:00 Intake & Output 05/27/19 05/28/19 05/28/19 18:59 06:59 18:59 Intake Total 800 Output Total 1550 520 200 Balance -750 -520 -200 Intake: Intake, IV Titration 800 Amount Sodium Chloride 0.9% 1, 800 000 ml @ 130 mls/hr IV . Q7H42M [facility] Rx#:[id number] Output: Drainage 20 Abdomen 20 Urine 1550 500 200 Other: Voiding Method Toilet Urinal # Voids 2 1 1 - Labs CBC & Chem 7: 05/28/19 06:37 05/28/19 06:37 Labs: Abnormal Lab Results - Last 24 Hours (Table) 05/27/19 05/27/19 05/28/19 Range/Units 16:54 20:12 02:43 WBC (3.8-10.6) k/uL RBC (4.30-5.90) m/uL Hgb (13.0-17.5) gm/dL Hct (39.0-53.0) % Neutrophils # (1.3-7.7) k/uL Glucose (74-99) mg/dL POC Glucose (mg/dL) 102 H 177 H 61 L (75-99) mg/dL Calcium (8.4-10.2) mg/dL ALT (4-49) U/L Alkaline Phosphatase (38-126) U/L Total Protein (6.3-8.2) g/dL Albumin (3.5-5.0) g/dL 05/28/19 05/28/19 05/28/19 Range/Units 06:37 06:37 11:36 WBC 12.3 H (3.8-10.6) k/uL RBC 4.11 L (4.30-5.90) m/uL Hgb 12.5 L (13.0-17.5) gm/dL Hct 38.7 L (39.0-53.0) % Neutrophils # 10.3 H (1.3-7.7) k/uL Glucose 73 L (74-99) mg/dL POC Glucose (mg/dL) 249 H (75-99) mg/dL Calcium 8.0 L (8.4-10.2) mg/dL ALT 134 H (4-49) U/L Alkaline Phosphatase 480 H (38-126) U/L Total Protein 5.9 L (6.3-8.2) g/dL Albumin 2.8 L (3.5-5.0) g/dL 05/28/19 Range/Units 12:42 WBC (3.8-10.6) k/uL RBC (4.30-5.90) m/uL Hgb (13.0-17.5) gm/dL Hct (39.0-53.0) % Neutrophils # (1.3-7.7) k/uL Glucose (74-99) mg/dL POC Glucose (mg/dL) 248 H (75-99) mg/dL Calcium (8.4-10.2) mg/dL ALT (4-49) U/L Alkaline Phosphatase (38-126) U/L Total Protein (6.3-8.2) g/dL Albumin (3.5-5.0) g/dL Microbiology - Last 24 Hours (Table) 05/26/19 12:00 Gram Stain - Final Other - Other Wound Culture - Final Klebsiella pneumoniae 05/26/19 12:00 Anaerobic Culture - Preliminary Gallbladder 05/24/19 19:23 Stool Culture - Final Stool 05/23/19 13:21 Blood Culture - Preliminary Blood No Growth after 96 hours Assessment and Plan (1) Acute cholecystitis Current Visit: Yes Status: Acute Code(s): K81.0 - ACUTE CHOLECYSTITIS SN [facility] Code(s): 16125211 (2) Acute kidney injury Current Visit: Yes Status: Acute Code(s): N17.9 - ACUTE KIDNEY FAILURE, UNSPECIFIED SNOMED Code(s): 44677700 (3) Dehydration Current Visit: Yes Status: Acute Code(s): E86.0 - DEHYDRATION SNOMED Code(s): 29245179 (4) Elevated liver enzymes Current Visit: Yes Status: Acute Code(s): R74.8 - ABNORMAL LEVELS OF OTHER SERUM ENZYMES SNOMED Code(s): 646464847 (5) Hyperbilirubinemia Current Visit: Yes Status: Acute Code(s): E80.6 - OTHER DISORDERS OF BILIRUBIN METABOLISM SNOMED Code(s): 60273787 (6) Left lower lobe pneumonia Current Visit: Yes Status: Acute Code(s): J18.9 - PNEUMONIA, UNSPECIFIED ORGANISM SNOMED Code(s): 750240137
[2019-05-28] MEDS: INSULIN ASPART (NovoLOG) 100 UNIT/ML VIAL SQ SCH ×5 (10:06→21:52)
[2019-05-28 10:30] LABS: Basophils % (A) 0 %; Eosinophils # (A) 0.1 k/uL (0-0.7); Eosinophils % (A) 1 %; HCT 38.7 % (39.0-53.0); HGB 12.5 gm/dL (13.0-17.5); Lymphocytes # (A) 1.1 k/uL (1.0-4.8); Lymphocytes % (A) 9 %; MCH 30.4 pg (25.0-35.0); MCHC 32.3 g/dL (31.0-37.0); MCV 94.2 fL (80.0-100.0); Mean Platelet Volume 8.5; Monocytes # (A) 0.6 k/uL (0-1.0); Monocytes % (A) 5 %; Neutrophils # (A) 10.3 k/uL (1.3-7.7); Neutrophils % (A) 84 %; Platelet Count 369 k/uL (150-450); RBC 4.11 m/uL (4.30-5.90); RDW 13.4 % (11.5-15.5); WBC 12.3 k/uL (3.8-10.6)
[2019-05-28 11:38] LABS: Glucose,Whole Blood 249 mg/dL (75-99)
[2019-05-28 12:44] LABS: Glucose,Whole Blood 248 mg/dL (75-99)
[2019-05-28 13:53] LABS: Glucose,Whole Blood 233 mg/dL (75-99)
[2019-05-28] MEDS: LACTATED RINGERS 1,000 ML IV SCH (14:01)
--- NOTE | 2019-05-28 14:40 | PN ---
PROGRESS NOTE DATE OF SERVICE: 05/28/2019 Patient is a pleasant 74-year-old pleasant white male, admitted to the hospital with vague right upper quadrant abdominal pain, fatigue, not feeling well and subsequently diagnosed with acute gangrenous cholecystitis. Underwent laparoscopic cholecystectomy 2 days ago and patient doing well. He has a WILBERTO drain in place which is draining about 60 mL in the last 24 hours. He still complains of some epigastric discomfort but no other complaints. No fever, chills, or night sweats. LFTs are gradually improving. PHYSICAL EXAMINATION: He appears comfortable, in no apparent distress. VITAL SIGNS: Stable. Blood pressure is 139/83, pulse is 58, temperature 97.6. HEENT: Examination unremarkable, conjunctivae are pink, sclerae nonicteric, oral cavity no lesions. NECK: No JVD or lymph node enlargement. CHEST: Clear to auscultation. HEART: Regular rate and rhythm. ABDOMEN: Soft. Bowel sounds are positive. No organomegaly. Mild tenderness in the epigastric area. EXTREMITIES: No pedal edema. WILBERTO drain in place. There was about 20 mL in the bag. NEUROLOGIC: Alert and oriented x3. No focal deficits. LABS: From today WBC 23.3, hemoglobin 12.5, platelets normal. T bilirubin is 1.2. AST and ALT of 51 and 134 respectively, and alkaline phosphatase is 480. IMPRESSION: 1. Acute gangrenous cholecystitis, status post laparoscopic cholecystectomy 2 days ago with WILBERTO drain in place with no significant bile leak at this time. 2. Elevated LFTs and mild jaundice which have gradually improved. Serum transaminases have significantly improved. MRCP has been negative before gallbladder surgery. RECOMMENDATION: 1. Continue with broad-spectrum antibiotics. 2. Continue to monitor him closely. 3. No need for an ERCP at the present time. 4. Will follow with you. Thank you for this consultation. MMODL / IJN: [id number] /
[2019-05-28] MEDS: metroNIDAZOLE 500 MG TAB PO SCH (16:44)
[2019-05-28 17:03] LABS: Glucose,Whole Blood 135 mg/dL (75-99)
[2019-05-28 20:37] LABS: Glucose,Whole Blood 222 mg/dL (75-99)
[2019-05-28] MEDS: ENOXAPARIN 40 MG/0.4 ML SYRINGE SQ SCH (21:51)
[2019-05-28] MEDS: ATORVASTATIN 10 MG TAB PO SCH (21:52)
--- NOTE | 2019-05-28 22:06 | P.PN ---
Progress Note - Text Progress Note Date: 05/28/19 Chief Complaint: Not feeling well History of presenting complaint: This is a pleasant 74-year-old patient of Dr. Chen. Patient about a week ago left [facility]. He was treated there for pneumonia. Patient now presents with decreased appetite having chills at home. Minimal cough. Nonspecific upper abdominal pain. Also worsening reflux symptoms. No chest pain. Minimal cough. Some shortness of breath. The abdominal pain did not radiate. Not related to food. It is gone now. Admitted with-pneumonia, acute cholecystitis. Started on ceftriaxone and Zithromax. Then switched to IV Zosyn. Had a HIDA scan and MRCP.-Suggestive acute cholecystitis. May 25-underwent cholecystectomy. WILBERTO drain placed. Today-eating better. WILBERTO drain is "edvin drainage. past flatus. Pain control. Her nausea vomiting. Review of systems: Was done for constitutional, cardiovascular, GI, pulmonary. relevant finding as above Active Medications Hydrocodone Bitart/Acetaminophen ([place] 5-325) 1 each PO Q4HR PRN PRN Reason: Pain Last Admin: 05/28/19 21:51 Dose: 1 each Documented by: Aspirin (Aspirin) 81 mg PO DAILY [facility] Last Admin: 05/28/19 07:18 Dose: 81 mg Documented by: Atorvastatin Calcium (Lipitor) 10 mg PO HS [facility] Last Admin: 05/28/19 21:52 Dose: 10 mg Documented by: Benzocaine/Menthol (Cepacol Lozenge) 1 each MUCOUS MEM Q6HR PRN PRN Reason: Sore Throat Last Admin: 05/27/19 16:42 Dose: 1 each Documented by: Enoxaparin Sodium (Lovenox) 40 mg SQ DAILY@2100 [facility] Last Admin: 05/28/19 21:51 Dose: 40 mg Documented by: Escitalopram Oxalate (Lexapro) 10 mg PO DAILY [facility] Last Admin: 05/28/19 07:18 Dose: 10 mg Documented by: Famotidine (Pepcid) 20 mg PO Q12HR [facility] Last Admin: 05/28/19 21:52 Dose: 20 mg Documented by: Hydromorphone HCl (Dilaudid) 1 mg IVP Q3HR PRN PRN Reason: Moderate to Severe Pain Piperacillin Sod/Tazobactam (Sod 3.375 gm/ Sodium Chloride) 100 mls @ 25 mls/hr IVPB Q8H [facility] Last Admin: 05/28/19 17:59 Dose: 25 mls/hr Documented by: Lactated Ringer's (Lactated Ringers) 1,000 mls @ 20 mls/hr IV .Q24H [facility] Last Admin: 05/28/19 14:01 Dose: Not Given Documented by: Insulin Aspart (Novolog) 0 unit SQ ACHS [facility]; Protocol Last Admin: 05/28/19 21:52 Dose: 3 unit Documented by: Insulin Detemir (Levemir) 30 unit SQ DAILY@0700 [facility] Last Admin: 05/28/19 09:19 Dose: Not Given Documented by: Levothyroxine Sodium (Synthroid) 75 mcg PO DAILY@0630 [facility] Last Admin: 05/28/19 04:52 Dose: Not Given Documented by: Magnesium Hydroxide (Milk Of Magnesia) 2,400 mg PO DAILY PRN PRN Reason: Constipation Metronidazole (Flagyl) 500 mg PO Q8HR [facility] Last Admin: 05/28/19 16:44 Dose: 500 mg Documented by: Miscellaneous Information (Pneumonia Protocol Utilized) 1 each PO ONCE PRN PRN Reason: Per Protocol Naloxone HCl (Narcan) 0.2 mg IV Q2M PRN PRN Reason: Opioid Reversal Ondansetron HCl (Zofran) 4 mg IVP Q6HR PRN PRN Reason: Nausea And Vomiting Tamsulosin HCl (Flomax) 0.4 mg PO DAILY [facility] Last Admin: 05/28/19 07:18 Dose: 0.4 mg Documented by: Physical examination: VITAL SIGNS: 97.7, 68, 18, 140/80, 95% on room air GENERAL: Sitting on a chair, eating EYES: Pupils equal. Conjunctiva normal. HEENT: External appearance of nose and ears normal, oral cavity grossly normal. NECK: JVD not raised; masses not palpable. HEART: First and second heart sounds are normal; no edema. LUNGS: Respiratory rate normal, decreased breath sound at the bases. ABDOMEN: Soft, tender, WILBERTO drain on the right side liver spleen not palpable, no masses palpable. PSYCH: [Alert and oriented x3; mood and affect normal INVESTIGATIONS, reviewed in the clinical context: white count 12.3 hemoglobin 12.5 potassium 4.6 creatinine 1.17 Bilirubin 1.5 AST 73 ALT 196 Previous testing White count 21.3 hemoglobin 13.8 platelets 342 potassium 4.3 sodium 131 bun 3025 creatinine 1.56 glucose 55 lactic acid 2.1 total bilirubin 3.2 AST 328 ALT 289 alkaline phosphatase 397 UA positive for 1+ protein, bilirubin 2+ Hepatitis A IgM antibody negative Chest x-ray film personally reviewed by me-basilar infiltrate EKG tracing personally reviewed by me-normal sinus rhythm Gallbladder ultrasound-enlarged liver, gallbladder with thickened wall with pericholecystic fluid with some debris within the visualized of the dependent portions HIDA scan-delayed emptying of the gallbladder MRCP-gallbladder wall thickening Assessment: -basal pneumonia suspect gram-negative organism and the patient was treated for pneumonia at [facility] left AMA about a week ago. , POA, improved -acute gangrenous purulent cholecystitis, the cystic duct obstruction with gal lstones POA-status post cholecystectomy -Acute renal failure possibly ATN with improved -Obesity BMI 31.3 -Diabetes mellitus type 2, uncontrolled with hypoglycemia from decreased oral intake, -BPH -Hyperlipidemia -Hypothyroid -Depression otherwise specified Plan: improving.on IV Zosyn and by mouth Flagyl. Medically stable. DC when okay with Dr. Ellington. Told the patient to ambulate. Increase activity.
[2019-05-29] MEDS: metroNIDAZOLE 500 MG TAB PO SCH ×3 (00:29→16:43)
[2019-05-29] MEDS: HYDROcodone/APAP 5-325MG 1 EACH TAB PO PRN ×2 (02:53→16:43)
[2019-05-29] MEDS: PIPERACILLIN-TAZOBACTAM 3.375 GM in SODIUM CHLORIDE 0.9% 100 ML IVPB SCH ×4 (02:54→20:23)
[2019-05-29] MEDS: LEVOTHYROXINE 75 MCG TAB PO SCH (06:05)
[2019-05-29 07:05] LABS: Glucose,Whole Blood 88 mg/dL (75-99)
[2019-05-29 07:11] LABS: Basophils % (A) 0 %; Eosinophils # (A) 0.1 k/uL (0-0.7); Eosinophils % (A) 1 %; HCT 37.6 % (39.0-53.0); HGB 12.1 gm/dL (13.0-17.5); Lymphocytes # (A) 1.4 k/uL (1.0-4.8); Lymphocytes % (A) 13 %; MCH 30.2 pg (25.0-35.0); MCHC 32.2 g/dL (31.0-37.0); MCV 93.9 fL (80.0-100.0); Mean Platelet Volume 8.1; Monocytes # (A) 0.5 k/uL (0-1.0); Monocytes % (A) 5 %; Neutrophils # (A) 8.4 k/uL (1.3-7.7); Neutrophils % (A) 79 %; Platelet Count 382 k/uL (150-450); RDW 13.6 % (11.5-15.5); WBC 10.6 k/uL (3.8-10.6)
[2019-05-29] MEDS: INSULIN ASPART (NovoLOG) 100 UNIT/ML VIAL SQ SCH ×4 (07:18→20:34)
[2019-05-29 07:20] LABS: Albumin 2.8 g/dL (3.5-5.0); Calcium 8.2 mg/dL (8.4-10.2); Total Bilirubin 1.1 mg/dL (0.2-1.3)
[2019-05-29] MEDS: INSULIN DETEMIR (LEVEMIR) 100 UNIT/ML SYR SQ SCH (07:56)
[2019-05-29] MEDS: ASPIRIN 81 MG PO SCH (07:56)
[2019-05-29] MEDS: TAMSULOSIN 0.4 MG CAP.ER.24H PO SCH (07:56)
[2019-05-29] MEDS: ESCITALOPRAM 10 MG TAB PO SCH (07:56)
[2019-05-29] MEDS: FAMOTIDINE 20 MG TAB PO SCH ×2 (07:56→20:33)
--- NOTE | 2019-05-29 09:55 | P.PN ---
Progress Note - Text Progress Note Date: 05/29/19 The patient feels well. He has minimal complaints of pain. On exam his vital signs are stable. Abdomen soft. There is some minimal bilious tinged fluid in the WILBERTO drain. Status post subtotal cholecystectomy for gangrenous cholecystitis. Patient will be observed for possible bile leak. He is doing well currently. His bilirubin is 1.1
--- NOTE | 2019-05-29 10:37 | PN ---
PROGRESS NOTE DATE OF SERVICE: 05/29/2019 Patient is a 74-year-old pleasant white male admitted to the hospital with acute gangrenous cholecystitis and elevated LFTs. He underwent surgery by Dr. Allen three days ago and has a WILBERTO drain in place. Currently, the WILBERTO drain has about 10 mL of bilious fluid noted. Patient is feeling much better and wants to go home. He denies any complaints. PHYSICAL EXAMINATION: He appears comfortable, in no apparent distress. Blood pressure is 176/81, pulse rate 47, temperature 97.5. HEENT: Examination unremarkable. Conjunctivae are pink. Sclerae nonicteric. Oral cavity no lesions. NECK: No JVD or lymph node enlargement. CHEST: Clear to auscultation. HEART: Regular rate and rhythm. ABDOMEN: Soft. Minimal tenderness in the epigastric area. Rest of the abdomen is benign.. EXTREMITIES: No pedal edema. SKIN: No rashes. NEUROLOGIC: Alert and oriented x3. No focal deficits. WILBERTO drain has about 5 mL of bilious fluid noted. LABS: From today WBC is 10.6, hemoglobin 12.1, platelets normal. Basic metabolic panel is within normal limits. T-bilirubin is down to 1.1. AST and ALT of 103 and 37 respectively, alkaline phosphatase of 405. IMPRESSION: 1. Acute gangrenous cholecystitis, status post gallbladder surgery with WILBERTO drain placement by Dr. Allen three days ago. Mild small amount of bilious fluid in the WILBERTO drain noted, but no significant bile leak. 2. Elevated LFTs and mild jaundice which are gradually improving. MRCP before the surgery was negative. RECOMMENDATION: 1. Continue with broad-spectrum antibiotics. 2. Advance diet as tolerated. 3. Will monitor for bile leak closely. Thank you for this consultation. MMODL / IJN: [id number] /
[2019-05-29 11:54] LABS: Glucose,Whole Blood 128 mg/dL (75-99)
[2019-05-29] MEDS: LACTATED RINGERS 1,000 ML IV SCH (16:42)
[2019-05-29 17:13] LABS: Glucose,Whole Blood 186 mg/dL (75-99)
--- NOTE | 2019-05-29 19:07 | P.PN ---
Progress Note - Text Progress Note Date: 05/29/19 Chief Complaint: Not feeling well History of presenting complaint: This is a pleasant 74-year-old patient of Dr. Chen. Patient about a week ago left [facility]. He was treated there for pneumonia. Patient now presents with decreased appetite having chills at home. Minimal cough. Nonspecific upper abdominal pain. Also worsening reflux symptoms. No chest pain. Minimal cough. Some shortness of breath. The abdominal pain did not radiate. Not related to food. It is gone now. Admitted with-pneumonia, acute cholecystitis. Started on ceftriaxone and Zithromax. Then switched to IV Zosyn. Had a HIDA scan and MRCP.-Suggestive acute cholecystitis. May 25-underwent cholecystectomy. WILBERTO drain placed. Today-eating better. WILBERTO drain sitting with significantly low.-Clear. Had couple of bowel movements. Review of systems: Was done for constitutional, cardiovascular, GI, pulmonary. relevant finding as above Active Medications Hydrocodone Bitart/Acetaminophen ([place] 5-325) 1 each PO Q4HR PRN PRN Reason: Pain Last Admin: 05/29/19 16:43 Dose: 1 each Documented by: Aspirin (Aspirin) 81 mg PO DAILY [facility] Last Admin: 05/29/19 07:56 Dose: 81 mg Documented by: Atorvastatin Calcium (Lipitor) 10 mg PO HS [facility] Last Admin: 05/28/19 21:52 Dose: 10 mg Documented by: Benzocaine/Menthol (Cepacol Lozenge) 1 each MUCOUS MEM Q6HR PRN PRN Reason: Sore Throat Last Admin: 05/27/19 16:42 Dose: 1 each Documented by: Enoxaparin Sodium (Lovenox) 40 mg SQ DAILY@2100 [facility] Last Admin: 05/28/19 21:51 Dose: 40 mg Documented by: Escitalopram Oxalate (Lexapro) 10 mg PO DAILY [facility] Last Admin: 05/29/19 07:56 Dose: 10 mg Documented by: Famotidine (Pepcid) 20 mg PO Q12HR [facility] Last Admin: 05/29/19 07:56 Dose: 20 mg Documented by: Hydromorphone HCl (Dilaudid) 1 mg IVP Q3HR PRN PRN Reason: Moderate to Severe Pain Piperacillin Sod/Tazobactam (Sod 3.375 gm/ Sodium Chloride) 100 mls @ 25 mls/hr IVPB Q8H [facility] Last Admin: 05/29/19 10:59 Dose: 25 mls/hr Documented by: Lactated Ringer's (Lactated Ringers) 1,000 mls @ 20 mls/hr IV .Q24H [facility] Last Admin: 05/29/19 16:42 Dose: Not Given Documented by: Insulin Aspart (Novolog) 0 unit SQ ACHS [facility]; Protocol Last Admin: 05/29/19 17:38 Dose: 2 unit Documented by: Insulin Detemir (Levemir) 30 unit SQ DAILY@0700 [facility] Last Admin: 05/29/19 07:56 Dose: 30 unit Documented by: Levothyroxine Sodium (Synthroid) 75 mcg PO DAILY@0630 [facility] Last Admin: 05/29/19 06:05 Dose: 75 mcg Documented by: Magnesium Hydroxide (Milk Of Magnesia) 2,400 mg PO DAILY PRN PRN Reason: Constipation Metronidazole (Flagyl) 500 mg PO Q8HR [facility] Last Admin: 05/29/19 16:43 Dose: 500 mg Documented by: Miscellaneous Information (Pneumonia Protocol Utilized) 1 each PO ONCE PRN PRN Reason: Per Protocol Naloxone HCl (Narcan) 0.2 mg IV Q2M PRN PRN Reason: Opioid Reversal Ondansetron HCl (Zofran) 4 mg IVP Q6HR PRN PRN Reason: Nausea And Vomiting Tamsulosin HCl (Flomax) 0.4 mg PO DAILY [facility] Last Admin: 05/29/19 07:56 Dose: 0.4 mg Documented by: Physical examination: VITAL SIGNS: 98, 64, 21, 108/66, 94% on room air GENERAL: Sitting on a chair, comfortable EYES: Pupils equal. Conjunctiva normal. HEENT: External appearance of nose and ears normal, oral cavity grossly normal. NECK: JVD not raised; masses not palpable. HEART: First and second heart sounds are normal; no edema. LUNGS: Respiratory rate normal, decreased breath sound at the bases. ABDOMEN: Soft, tender, WILBERTO drain on the right side-clear output, liver spleen not palpable, no masses palpable. PSYCH: [Alert and oriented x3; mood and affect normal INVESTIGATIONS, reviewed in the clinical context: White count at 10.6 hemoglobin 12.1 potassium 5 creatinine 1.21 total bilirubin 1.1 AST 37 ALT 103 alkaline phosphatase 405 Previous testing White count 21.3 hemoglobin 13.8 platelets 342 potassium 4.3 sodium 131 bun 3025 creatinine 1.56 glucose 55 lactic acid 2.1 total bilirubin 3.2 AST 328 ALT 289 alkaline phosphatase 397 UA positive for 1+ protein, bilirubin 2+ Hepatitis A IgM antibody negative Chest x-ray film personally reviewed by me-basilar infiltrate EKG tracing personally reviewed by me-normal sinus rhythm Gallbladder ultrasound-enlarged liver, gallbladder with thickened wall with pericholecystic fluid with some debris within the visualized of the dependent portions HIDA scan-delayed emptying of the gallbladder MRCP-gallbladder wall thickening Assessment: -basal pneumonia suspect gram-negative organism and the patient was treated for pneumonia at [facility] left AMA about a week ago. , POA, improved -acute gangrenous purulent cholecystitis, the cystic duct obstruction with gallstones POA-status post cholecystectomy -Acute renal failure possibly ATN with improved -Obesity BMI 31.3 -Diabetes mellitus type 2, uncontrolled with hypoglycemia from decreased oral intake, -BPH -Hyperlipidemia -Hypothyroid -Depression otherwise specified Plan: on IV Zosyn and by mouth Flagyl. Being monitored by surgery for bile leak. Continue current medication treatment plan.
[2019-05-29] MEDS: ENOXAPARIN 40 MG/0.4 ML SYRINGE SQ SCH (20:33)
[2019-05-29] MEDS: ATORVASTATIN 10 MG TAB PO SCH (20:34)
[2019-05-29 20:35] LABS: Glucose,Whole Blood 132 mg/dL (75-99)
[2019-05-30] MEDS: HYDROcodone/APAP 5-325MG 1 EACH TAB PO PRN ×3 (00:03→21:38)
[2019-05-30] MEDS: metroNIDAZOLE 500 MG TAB PO SCH ×2 (00:50→17:14)
[2019-05-30] MEDS: LEVOTHYROXINE 75 MCG TAB PO SCH (06:05)
[2019-05-30 07:11] LABS: Glucose,Whole Blood 76 mg/dL (75-99)
[2019-05-30] MEDS: INSULIN ASPART (NovoLOG) 100 UNIT/ML VIAL SQ SCH ×4 (07:23→21:38)
[2019-05-30] MEDS: INSULIN DETEMIR (LEVEMIR) 100 UNIT/ML SYR SQ SCH (08:36)
[2019-05-30] MEDS: ASPIRIN 81 MG PO SCH (08:36)
[2019-05-30] MEDS: FAMOTIDINE 20 MG TAB PO SCH ×2 (08:37→21:38)
[2019-05-30] MEDS: TAMSULOSIN 0.4 MG CAP.ER.24H PO SCH (08:37)
[2019-05-30] MEDS: ESCITALOPRAM 10 MG TAB PO SCH (08:37)
--- NOTE | 2019-05-30 11:12 | P.PN ---
Progress Note - Text Progress Note Date: 05/30/19 The patient resting comfortably in his bed. He has definite bilious drainage in his WILBERTO drain. It appears that he had approximate 20 mL in his WILBERTO bulb before was emptied today. Patient has no significant abdominal pain. On exam his vital signs are stable. His abdomen soft. Status post subtotal cholecystectomy for gangrenous gallbladder. Patient will continue to be observed. His WILBERTO drain is suggestive of a bile leak. The output is minimal at this time.
[2019-05-30 11:35] LABS: Glucose,Whole Blood 92 mg/dL (75-99)
[2019-05-30 12:15] VITALS: BMI 31.3
[2019-05-30] MEDS: PIPERACILLIN-TAZOBACTAM 3.375 GM in SODIUM CHLORIDE 0.9% 100 ML IVPB SCH ×2 (12:29→20:25)
--- NOTE | 2019-05-30 16:37 | PN ---
PROGRESS NOTE DATE OF SERVICE: 05/30/2019 The patient is a 74 -year-old pleasant white male, admitted to the hospital with acute gangrenous cholecystitis. Underwent laparoscopic cholecystectomy with WILBERTO drain about 4 days ago. The patient is doing well. He denies any symptoms. Mild abdominal discomfort, decreased appetite. WILBERTO drain has about 10 mL of bilious fluid. Otherwise, he denies any fever, chills, or night sweats. PHYSICAL EXAMINATION: Appears comfortable in no apparent distress. Vital signs stable. Blood pressure is 134/80, pulse 92, temperature 98. HEENT examination unremarkable. Conjunctivae pink. Sclerae anicteric. Oral cavity no lesions. NECK: No JVD or lymph node enlargement. CHEST: Clear to auscultation. HEART: Regular rate and rhythm. ABDOMEN: Soft. WILBERTO drain in place right upper quadrant. There was 5 mL of bilious fluid noted. The rest of the abdomen was benign. EXTREMITIES: No pedal edema. SKIN: No rashes. NEUROLOGIC: Alert and oriented x3. No focal deficits. LABORATORY DATA: WBC 10.6, hemoglobin 12.1, platelets normal. Rest of the basic metabolic panel is within normal limits. IMPRESSION: 1. Acute gangrenous cholecystitis, status post cholecystectomy 4 days ago, WILBERTO drain in place with 5 mL of bilious fluid noted. No significant bile leak at this time. 2. Elevated LFTs gradually improving. MRCP showed no CBD stones. RECOMMENDATIONS: 1. Continue with broad-spectrum antibiotics. 2. Advance diet as tolerated. 3. Repeat labs in the morning. If he is doing well, he can be discharged home tomorrow. Thank you for this consultation. MMODL / IJN: [id number] /
[2019-05-30 17:07] LABS: Glucose,Whole Blood 150 mg/dL (75-99)
--- NOTE | 2019-05-30 17:40 | P.PN ---
Progress Note - Text Progress Note Date: 05/30/19 Chief Complaint: Not feeling well History of presenting complaint: This is a pleasant 74-year-old patient of Dr. Chen. Patient about a week ago left [facility]. He was treated there for pneumonia. Patient now presents with decreased appetite having chills at home. Minimal cough. Nonspecific upper abdominal pain. Also worsening reflux symptoms. No chest pain. Minimal cough. Some shortness of breath. The abdominal pain did not radiate. Not related to food. It is gone now. Admitted with-pneumonia, acute cholecystitis. Started on ceftriaxone and Zithromax. Then switched to IV Zosyn. Had a HIDA scan and MRCP.-Suggestive acute cholecystitis. May 25-underwent cholecystectomy. WILBERTO drain placed. Today-eating better. WILBERTO drain sitting with significantly low.-Clear. Had bowel movements. Review of systems: Was done for constitutional, cardiovascular, GI, pulmonary. relevant finding as above Active Medications Hydrocodone Bitart/Acetaminophen ([place] 5-325) 1 each PO Q4HR PRN PRN Reason: Pain Last Admin: 05/30/19 08:37 Dose: 1 each Documented by: Aspirin (Aspirin) 81 mg PO DAILY [facility] Last Admin: 05/30/19 08:36 Dose: 81 mg Documented by: Atorvastatin Calcium (Lipitor) 10 mg PO HS [facility] Last Admin: 05/29/19 20:34 Dose: 10 mg Documented by: Benzocaine/Menthol (Cepacol Lozenge) 1 each MUCOUS MEM Q6HR PRN PRN Reason: Sore Throat Last Admin: 05/27/19 16:42 Dose: 1 each Documented by: Enoxaparin Sodium (Lovenox) 40 mg SQ DAILY@2100 [facility] Last Admin: 05/29/19 20:33 Dose: 40 mg Documented by: Escitalopram Oxalate (Lexapro) 10 mg PO DAILY [facility] Last Admin: 05/30/19 08:37 Dose: 10 mg Documented by: Famotidine (Pepcid) 20 mg PO Q12HR [facility] Last Admin: 05/30/19 08:37 Dose: 20 mg Documented by: Hydromorphone HCl (Dilaudid) 1 mg IVP Q3HR PRN PRN Reason: Moderate to Severe Pain Piperacillin Sod/Tazobactam (Sod 3.375 gm/ Sodium Chloride) 100 mls @ 25 mls/hr IVPB Q8H [facility] Last Admin: 05/30/19 12:29 Dose: 25 mls/hr Documented by: Sodium Chloride (Saline 0.9%) 500 mls @ 20 mls/hr IV .Q24H [facility] Insulin Aspart (Novolog) 0 unit SQ ACHS [facility]; Protocol Last Admin: 05/30/19 11:48 Dose: Not Given Documented by: Insulin Detemir (Levemir) 30 unit SQ DAILY@0700 [facility] Last Admin: 05/30/19 08:36 Dose: 30 unit Documented by: Levothyroxine Sodium (Synthroid) 75 mcg PO DAILY@0630 [facility] Last Admin: 05/30/19 06:05 Dose: 75 mcg Documented by: Magnesium Hydroxide (Milk Of Magnesia) 2,400 mg PO DAILY PRN PRN Reason: Constipation Metronidazole (Flagyl) 500 mg PO Q8HR [facility] Last Admin: 05/30/19 17:14 Dose: 500 mg Documented by: Miscellaneous Information (Pneumonia Protocol Utilized) 1 each PO ONCE PRN PRN Reason: Per Protocol Naloxone HCl (Narcan) 0.2 mg IV Q2M PRN PRN Reason: Opioid Reversal Ondansetron HCl (Zofran) 4 mg IVP Q6HR PRN PRN Reason: Nausea And Vomiting Tamsulosin HCl (Flomax) 0.4 mg PO DAILY [facility] Last Admin: 05/30/19 08:37 Dose: 0.4 mg Documented by: Physical examination: VITAL SIGNS: 98.3, 78, 16, 134/80, 92% on room air GENERAL: Sitting on a chair, comfortable EYES: Pupils equal. Conjunctiva normal. HEENT: External appearance of nose and ears normal, oral cavity grossly normal. NECK: JVD not raised; masses not palpable. HEART: First and second heart sounds are normal; no edema. LUNGS: Respiratory rate normal, decreased breath sound at the bases. ABDOMEN: Soft, tender, WILBERTO drain on the right side-clear output, liver spleen not palpable, no masses palpable. PSYCH: [Alert and oriented x3; mood and affect normal INVESTIGATIONS, reviewed in the clinical context: White count at 10.6 hemoglobin 12.1 potassium 5 creatinine 1.21 total bilirubin 1.1 AST 37 ALT 103 alkaline phosphatase 405 Previous testing White count 21.3 hemoglobin 13.8 platelets 342 potassium 4.3 sodium 131 bun 3025 creatinine 1.56 glucose 55 lactic acid 2.1 total bilirubin 3.2 AST 328 ALT 289 alkaline phosphatase 397 UA positive for 1+ protein, bilirubin 2+ Hepatitis A IgM antibody negative Chest x-ray film personally reviewed by me-basilar infiltrate EKG tracing personally reviewed by me-normal sinus rhythm Gallbladder ultrasound-enlarged liver, gallbladder with thickened wall with pericholecystic fluid with some debris within the visualized of the dependent portions HIDA scan-delayed emptying of the gallbladder MRCP-gallbladder wall thickening Assessment: -basal pneumonia suspect gram-negative organism and the patient was treated for pneumonia at [facility] left AMA about a week ago. , POA, improved -acute gangrenous purulent cholecystitis, the cystic duct obstruction with gallstones POA-status post cholecystectomy -Acute renal failure possibly ATN with improved -Obesity BMI 31.3 -Diabetes mellitus type 2, uncontrolled with hypoglycemia from decreased oral intake, -BPH -Hyperlipidemia -Hypothyroid -Depression otherwise specified Plan: minimal bile leak. We'll switch over to oral antibiotics. discharge when okay with surgery.
[2019-05-30] MEDS: SODIUM CHLORIDE 0.9% 500 ML 500 ML IV SCH (17:49)
[2019-05-30 21:06] LABS: Glucose,Whole Blood 214 mg/dL (75-99)
[2019-05-30] MEDS: ENOXAPARIN 40 MG/0.4 ML SYRINGE SQ SCH (21:37)
[2019-05-30] MEDS: ATORVASTATIN 10 MG TAB PO SCH (21:38)
[2019-05-31] MEDS: metroNIDAZOLE 500 MG TAB PO SCH ×2 (01:06→07:30)
[2019-05-31] MEDS: PIPERACILLIN-TAZOBACTAM 3.375 GM in SODIUM CHLORIDE 0.9% 100 ML IVPB SCH ×2 (03:45→10:52)
[2019-05-31] MEDS: LEVOTHYROXINE 75 MCG TAB PO SCH (06:15)
[2019-05-31 06:31] LABS: Basophils % (A) 0 %; Eosinophils # (A) 0.1 k/uL (0-0.7); Eosinophils % (A) 1 %; HCT 41.2 % (39.0-53.0); HGB 13.1 gm/dL (13.0-17.5); Lymphocytes # (A) 1.4 k/uL (1.0-4.8); Lymphocytes % (A) 15 %; MCH 29.7 pg (25.0-35.0); MCHC 31.8 g/dL (31.0-37.0); MCV 93.7 fL (80.0-100.0); Monocytes # (A) 0.6 k/uL (0-1.0); Monocytes % (A) 6 %; Neutrophils # (A) 7.3 k/uL (1.3-7.7); Neutrophils % (A) 75 %; Platelet Count 447 k/uL (150-450); RDW 13.9 % (11.5-15.5); WBC 9.6 k/uL (3.8-10.6)
[2019-05-31 06:39] LABS: Calcium 8.8 mg/dL (8.4-10.2); Total Bilirubin 0.8 mg/dL (0.2-1.3); Total Protein 6.4 g/dL (6.3-8.2)
[2019-05-31 07:19] LABS: Glucose,Whole Blood 105 mg/dL (75-99)
[2019-05-31] MEDS: INSULIN DETEMIR (LEVEMIR) 100 UNIT/ML SYR SQ SCH (07:28)
[2019-05-31] MEDS: INSULIN ASPART (NovoLOG) 100 UNIT/ML VIAL SQ SCH ×2 (07:29→12:30)
[2019-05-31] MEDS: FAMOTIDINE 20 MG TAB PO SCH (07:30)
[2019-05-31] MEDS: ASPIRIN 81 MG PO SCH (07:30)
[2019-05-31] MEDS: ESCITALOPRAM 10 MG TAB PO SCH (07:30)
[2019-05-31] MEDS: TAMSULOSIN 0.4 MG CAP.ER.24H PO SCH (07:30)
--- NOTE | 2019-05-31 11:29 | P.PN ---
<Katlyn Wren - Last Filed: 05/31/19 11:25> Subjective Progress Note Date: 05/31/19 CHIEF COMPLAINT: Abnormal ultrasound HISTORY OF PRESENT ILLNESS: Patient is status post robotic-assisted laparoscopic lysis of adhesions and subtotal cholecystectomy. Patient examined at the bedside with Dr. Allen. Patient denies abdominal pain. Tolerating diet. No nausea or vomiting. PHYSICAL EXAM: VITAL SIGNS: Reviewed GENERAL: Well-developed in no acute distress. HEENT: No sclera icterus. Extraocular movements grossly intact. Moist buccal mucosa. Head is atraumatic, normocephalic. Hears conversational speech. No nasal drainage. NECK: Supple without lymphadenopathy. CHEST: Non-labored respirations and equal bilateral excursions. CARDIOVASCULAR: Regular rate with regular rhythm. Palpable 2+ radial pulses. ABDOMEN: Soft. Nondistended. Surgical sites clean dry intact. WILBERTO drain with bile present.. MUSCULOSKELETAL: No clubbing or cyanosis. NEUROLOGIC: No focal or lateralizing signs. Cranial nerves II through XII grossly intact. PSYCH: Appropriate affect. Alert and oriented to person, place and time. SKIN: Well perfused. Good skin turgor. ASSESSMENT: 1. Gangrenous purulent acute cholecystitis with cystic duct obstruction due to gallstones 2. Right upper quadrant abdominal pain 3. Abnormal HIDA scan and MRCP for acute cholecystitis 4. Diabetes type 2, insulin-dependent 5. Hyperlipidemia 6. Hypertensive heart disease 7. Pneumonia with bibasilar infiltrate 8. Depressive disorder 9. Hyperbilirubinemia 10. Elevated liver function tests 11. Acute kidney injury 12. Benign prostate hypertrophy with lower obstructive urinary symptoms 13. Obesity due to excess calories, BMI 31.3 14. Hypothyroidism 15. Hypotestosteronism 16. Right upper quadrant peritoneal adhesions greater omentum to entire gallbladder 17. Postoperative bile leak, an expected outcome in this case due gangrenous purulent acute cholecystitis and patients complex surgical case PLAN: Patient is stable for discharge from a surgical standpoint. Due to patients bile leak, WILBERTO drain will be left in place at the time of discharge. He is prescribed Augmentin at discharge. He is to follow up with Dr. Allen outpatient. WILBERTO drain will be removed at patients follow up appointment. Nurse practitioner note has been reviewed by physician. Signing provider agrees with the documented findings, assessment, and plan of care. Objective - Vital Signs Vital signs: Vital Signs Temp 97.9 F 05/31/19 04:50 Pulse 69 05/31/19 04:50 Resp 20 05/31/19 04:50 BP 146/80 05/31/19 04:50 Pulse Ox 96 05/31/19 04:50 Intake & Output 05/30/19 05/31/19 05/31/19 18:59 06:59 18:59 Intake Total 540 500 Output Total 2 Balance 540 498 Weight 90.718 kg Intake: Oral 540 500 Output: Stool 2 Other: Voiding Method Urinal Urinal # Voids 8 3 - Labs CBC & Chem 7: 05/31/19 06:03 05/31/19 06:03 Labs: Abnormal Lab Results - Last 24 Hours (Table) 05/30/19 05/30/19 05/31/19 Range/Units 16:44 20:48 06:03 Sodium 136 L (137-145) mmol/L Creatinine 1.26 H (0.66-1.25) mg/dL Glucose 131 H (74-99) mg/dL POC Glucose (mg/dL) 150 H 214 H (75-99) mg/dL ALT 73 H (4-49) U/L Alkaline Phosphatase 348 H (38-126) U/L Albumin 3.0 L (3.5-5.0) g/dL 05/31/19 Range/Units 07:09 Sodium (137-145) mmol/L Creatinine (0.66-1.25) mg/dL Glucose (74-99) mg/dL POC Glucose (mg/dL) 105 H (75-99) mg/dL ALT (4-49) U/L Alkaline Phosphatase (38-126) U/L Albumin (3.5-5.0) g/dL Microbiology - Last 24 Hours (Table) 05/26/19 12:00 Anaerobic Culture - Final Gallbladder <Anika Allen - Last Filed: 05/31/19 12:24> Subjective Patient seen and evaluated above. He reports feeling much better today than Friday. Expected bile leak minimal less than 20 mL/day from patient's condition of full thickness necrosis of the gallbladder. Continue with WILBERTO drain as outpatient. Continue antibiotics as outpatient. Objective - Vital Signs Vital signs: Vital Signs Temp 97.9 F 05/31/19 04:50 Pulse 69 05/31/19 04:50 Resp 20 05/31/19 04:50 BP 146/80 05/31/19 04:50 Pulse Ox 96 05/31/19 04:50 Intake & Output 05/30/19 05/31/19 05/31/19 18:59 06:59 18:59 Intake Total 540 500 Output Total 2 Balance 540 498 Weight 90.718 kg Intake: Oral 540 500 Output: Stool 2 Other: Voiding Method Urinal Urinal # Voids 8 3 - Labs CBC & Chem 7: 05/31/19 06:03 05/31/19 06:03 Labs: Abnormal Lab Results - Last 24 Hours (Table) 05/30/19 05/30/19 05/31/19 Range/Units 16:44 20:48 06:03 Sodium 136 L (137-145) mmol/L Creatinine 1.26 H (0.66-1.25) mg/dL Glucose 131 H (74-99) mg/dL POC Glucose (mg/dL) 150 H 214 H (75-99) mg/dL ALT 73 H (4-49) U/L Alkaline Phosphatase 348 H (38-126) U/L Albumin 3.0 L (3.5-5.0) g/dL 05/31/19 05/31/19 Range/Units 07:09 11:43 Sodium (137-145) mmol/L Creatinine (0.66-1.25) mg/dL Glucose (74-99) mg/dL POC Glucose (mg/dL) 105 H 102 H (75-99) mg/dL ALT (4-49) U/L Alkaline Phosphatase (38-126) U/L Albumin (3.5-5.0) g/dL Microbiology - Last 24 Hours (Table) 05/26/19 12:00 Anaerobic Culture - Final Gallbladder Assessment and Plan (1) Acute cholecystitis Current Visit: Yes Status: Acute Code(s): K81.0 - ACUTE CHOLECYSTITIS SNOMED Code(s): 28935027 (2) Acute kidney injury Current Visit: Yes Status: Acute Code(s): N17.9 - ACUTE KIDNEY FAILURE, UNSPECIFIED SNOMED Code(s): 21759313 (3) Dehydration Current Visit: Yes Status: Acute Code(s): E86.0 - DEHYDRATION SNOMED Code(s): 78740914 (4) Elevated liver enzymes Current Visit: Yes Status: Acute Code(s): R74.8 - ABNORMAL LEVELS OF OTHER SERUM ENZYMES SNOMED Code(s): 515163309 (5) Hyperbilirubinemia Current Visit: Yes Status: Acute Code(s): E80.6 - OTHER DISORDERS OF BILIRUBIN METABOLISM SNOMED Code(s): 25234574 (6) Left lower lobe pneumonia Current Visit: Yes Status: Acute Code(s): J18.9 - PNEUMONIA, UNSPECIFIED ORGANISM SNOMED Code(s): 931935848
[2019-05-31 11:46] LABS: Glucose,Whole Blood 102 mg/dL (75-99)
[2019-05-31] MEDS: SODIUM CHLORIDE 0.9% 500 ML 500 ML IV SCH (12:30)
--- NOTE | 2019-05-31 14:49 | PN ---
PROGRESS NOTE DATE OF SERVICE: 05/31/2019 Patient is a 74-year-old white male status post laparoscopic cholecystectomy for gangrenous cholecystitis 5 days ago with a WILBERTO drain in place with very minimal bilious fluid in the WILBERTO drain. He had about 3 mL in the last 24 hours. He denies any complaints. He wants to go home. He reports no nausea, vomiting. Has decreased appetite. PHYSICAL EXAMINATION: Appears comfortable, in no apparent distress. VITAL SIGNS: Stable. Blood pressure is 146/80, pulse rate is 69, temperature 97.9. HEENT: Examination unremarkable, conjunctivae are pink, sclerae nonicteric, oral cavity no lesions. NECK: No JVD or lymph node enlargement. CHEST: Clear to auscultation. HEART: Regular rate and rhythm. ABDOMEN: Soft. Bowel sounds are positive. No organomegaly. WILBERTO drain is in place. There was about 3 mL of bilious fluid noted in the WILBERTO drain. EXTREMITIES: No pedal edema. SKIN: No rashes. NEUROLOGIC: Alert and oriented x3. No focal deficits. LABS: AST, ALT are 42 and 73 respectively, alkaline phosphatase 248, T bilirubin is normal. IMPRESSION: 1. Acute gangrenous cholecystitis status post laparoscopic cholecystectomy 5 days ago, doing well. WILBERTO drain has minimal amount of bilious fluid. 2. Elevated LFTs, gradually improving. RECOMMENDATIONS: Agree for the patient to be discharged home today. He was advised to follow up in the office if needed. Thank you for this consultation. MMODL / IJN: [id number] /
[2019-05-31 15:31] VITALS: BP 120/72; PULSE 89; RESP 16; TEMP 98.7
--- NOTE | 2019-05-31 22:46 | P.DS ---
Providers Date of admission: 05/23/19 15:34 Expected date of discharge: 05/31/19 Attending physician: Roberto Christine Consults: 05/23/19 22:37 Consult Physician Routine Consulting Provider: Anika Allen Consult Reason/Comments: Abnormal gallbladder ultrasound Do you want consulting provider notified?: Yes 05/24/19 08:23 Consult Physician Routine Consulting Provider: Eloy Marquez Consult Reason/Comments: elevated LFTs Do you want consulting provider notified?: Yes 05/24/19 08:28 Consult Physician Routine Consulting Provider: [facility] Consult Reason/Comments: surgical clearance Do you want consulting provider notified?: Yes Primary care physician: [facility] Course: Chief Complaint: Not feeling well History of presenting complaint: This is a pleasant 74-year-old patient of Dr. Chen. Patient about a week ago left [facility]. He was treated there for pneumonia. Patient now presents with decreased appetite having chills at home. Minimal cough. Nonspecific upper abdominal pain. Also worsening reflux symptoms. No chest pain. Minimal cough. Some shortness of breath. The abdominal pain did not radiate. Not related to food. It is gone now. Admitted with-pneumonia, acute cholecystitis. Started on ceftriaxone and Zithromax. Then switched to IV Zosyn. Had a HIDA scan and MRCP.-Suggestive acute cholecystitis. May 25-underwent cholecystectomy. WILBERTO drain placed. Some bile leak. Today-doing well. No abdominal pain. No bile leak. Cleared by surgery to be discharged. Care discussed with the patient. Peak sent over the WILBERTO drain. Consultation: Dr. Ellington from general surgery -Dr. Kat Goldman from GI Physical examination: VITAL SIGNS: 98.7, 89, 16, 120/72, 95% on room air GENERAL: Sitting on a chair, comfortable EYES: Pupils equal. Conjunctiva normal. HEENT: External appearance of nose and ears normal, oral cavity grossly normal. NECK: JVD not raised; masses not palpable. HEART: First and second heart sounds are normal; no edema. LUNGS: Respiratory rate normal, decreased breath sound at the bases. ABDOMEN: Soft, tender, WILBERTO drain on the right side-clear output, liver spleen not palpable, no masses palpable. PSYCH: [Alert and oriented x3; mood and affect normal INVESTIGATIONS, reviewed in the clinical context: White count at 10.6 hemoglobin 12.1 potassium 5 creatinine 1.21 total bilirubin 1.1 AST 37 ALT 103 alkaline phosphatase 405 Previous testing White count 21.3 hemoglobin 13.8 platelets 342 potassium 4.3 sodium 131 bun 3025 creatinine 1.56 glucose 55 lactic acid 2.1 total bilirubin 3.2 AST 328 ALT 289 alkaline phosphatase 397 UA positive for 1+ protein, bilirubin 2+ Hepatitis A IgM antibody negative Chest x-ray film personally reviewed by me-basilar infiltrate EKG tracing personally reviewed by me-normal sinus rhythm Gallbladder ultrasound-enlarged liver, gallbladder with thickened wall with pericholecystic fluid with some debris within the visualized of the dependent portions HIDA scan-delayed emptying of the gallbladder MRCP-gallbladder wall thickening Assessment: -basal pneumonia suspect gram-negative organism and the patient was treated for pneumonia at [facility] left AMA about a week ago. , POA, improved -acute gangrenous purulent cholecystitis, the cystic duct obstruction with gallstones POA-status post cholecystectomy -Acute renal failure possibly ATN with improved -Obesity BMI 31.3 -Diabetes mellitus type 2, uncontrolled with hypoglycemia from decreased oral intake, -BPH -Hyperlipidemia -Hypothyroid -Depression otherwise specified Disposition Home Patient Condition at Discharge: Fair Plan - Discharge Summary Discharge Rx Participant: Yes New Discharge Prescriptions: New Amoxic-Pot Clav 875-125Mg [Augmentin 875-125] 1 tab PO BID #10 tab metroNIDAZOLE [Flagyl] 500 mg PO Q8HR #15 tab INSULIN ASPART (NovoLOG) [NovoLOG (formulary)] 0 unit SQ ACHS vial Acetaminophen Tab [Tylenol Tab] 650 mg PO Q4H PRN #30 tablet PRN Reason: Pain Continue [place]-3 Fatty Acids/Fish Oil [Fish Oil 1,000 mg Softgel] 1 cap PO TID Aspirin EC [Ecotrin Low Dose] 81 mg PO DAILY Multivit-Min/FA/Lycopen/Lutein [Centrum Silver Men Tablet] 1 tab PO DAILY Cholecalciferol [Vitamin D3 (25 Mcg = 1000 Iu)] 1,000 unit PO BID Lovastatin [Altoprev] 20 mg PO HS Levothyroxine Sodium [Synthroid] 75 mcg PO DAILY Escitalopram [Lexapro] 10 mg PO DAILY metFORMIN HCL 1,000 mg PO BID Tamsulosin HCl [Flomax] 0.4 mg PO DAILY Testosterone Cypionate [Depo-Testosterone] 100 mg IM Q14D Changed Insulin Degludec [Tresiba Flextouch U-100] 30 units SQ DAILY #0 Discontinued Loratadine [Claritin] 10 mg PO DAILY Lisinopril [Zestril] 5 mg PO DAILY No Action Cinnamon 1000mg + Chromium 1 tab PO BID [place] 450mg 1 tab PO QID Discharge Medication List Aspirin EC [Ecotrin Low Dose] 81 mg PO DAILY 05/23/19 [History] Cholecalciferol [Vitamin D3 (25 Mcg = 1000 Iu)] 1,000 unit PO BID 05/23/19 [History] Cinnamon 1000mg + Chromium 1 tab PO BID 05/23/19 [History] Escitalopram [Lexapro] 10 mg PO DAILY 05/23/19 [History] Levothyroxine Sodium [Synthroid] 75 mcg PO DAILY 05/23/19 [History] Lovastatin [Altoprev] 20 mg PO HS 05/23/19 [History] Multivit-Min/FA/Lycopen/Lutein [Centrum Silver Men Tablet] 1 tab PO DAILY 05/23/19 [History] [place]-3 Fatty Acids/Fish Oil [Fish Oil 1,000 mg Softgel] 1 cap PO TID 05/23/19 [History] [place] 450mg 1 tab PO QID 05/23/19 [History] Tamsulosin HCl [Flomax] 0.4 mg PO DAILY 05/23/19 [History] Testosterone Cypionate [Depo-Testosterone] 100 mg IM Q14D 05/23/19 [History] metFORMIN HCL 1,000 mg PO BID 05/23/19 [History] Amoxic-Pot Clav 875-125Mg [Augmentin 875-125] 1 tab PO BID #10 tab 05/28/19 [Rx] Acetaminophen Tab [Tylenol Tab] 650 mg PO Q4H PRN #30 tablet 05/31/19 [Rx] INSULIN ASPART (NovoLOG) [NovoLOG (formulary)] 0 unit SQ ACHS vial 05/31/19 [Rx] Insulin Degludec [Tresiba Flextouch U-100] 30 units SQ DAILY #0 05/31/19 [Rx] metroNIDAZOLE [Flagyl] 500 mg PO Q8HR #15 tab 05/31/19 [Rx] Follow up Appointment(s)/Referral(s): Td Chen MD [Primary Care Provider] - 1-2 days (office to call you with appt. time and date.) Anika Allen MD [STAFF PHYSICIAN] - 06/08/19 2:20 pm Patient Instructions/Handouts: *Surgery [facility] - ([facility]) Laparoscopic Cholecystectomy, Acute Kidney Injury (DC), Low Fat Diet (DC), Sadiq-Davis Drain Care (DC) Activity/Diet/Wound Care/Special Instructions: Low fat diet Limited activity WILBERTO drain to be removed by Dr Allen Discharge Disposition: HOME SELF-CARE
[2019-06-01] MEDS ORDERED: FAMOTIDINE 20 MG TAB PO SCH (09:00)
== END 2019-05-31 14:48 | disposition home or self-care (01) | DRG 853 ==
LOC: EC 12:52 → 6NMEDSUR 15:34 → 4SSUR 05-24 13:43 → 6NMEDSUR 05-28 13:25
PROVIDERS: ADMIT Hospitalist; ATTEND Hospitalist
PROC: 0DNU4ZZ Release Omentum, Percutaneous Endoscopic Approach (ICD-10-PCS; principal; 2019-05-26 09:00)
PROC: 8E0W4CZ Robotic Assisted Procedure of Trunk Region, Percutaneous Endoscopic Approach (ICD-10-PCS; principal; 2019-05-26 09:00)
PROC: 0FT44ZZ Resection of Gallbladder, Percutaneous Endoscopic Approach (ICD-10-PCS; principal; 2019-05-26 09:00)
DX: A41.9 Sepsis, unspecified organism (principal); J15.6 Pneumonia due to other Gram-negative bacteria; N17.0 Acute kidney failure with tubular necrosis; K81.0 Acute cholecystitis; E87.2 Acidosis; K82.0 Obstruction of gallbladder; E78.5 Hyperlipidemia, unspecified; E86.0 Dehydration; F32.9 Major depressive disorder, single episode, unspecified; R65.20 Severe sepsis without septic shock; E03.9 Hypothyroidism, unspecified; K21.9 Gastro-esophageal reflux disease without esophagitis; I11.9 Hypertensive heart disease without heart failure; N40.0 Benign prostatic hyperplasia without lower urinary tract symptoms; E66.9 Obesity, unspecified; E11.649 Type 2 diabetes mellitus with hypoglycemia without coma; K82.A1 Gangrene of gallbladder in cholecystitis; K66.0 Peritoneal adhesions (postprocedural) (postinfection); Z79.4 Long term (current) use of insulin; Z79.82 Long term (current) use of aspirin; Z79.890 Hormone replacement therapy; Z79.899 Other long term (current) drug therapy; Z68.31 Body mass index [BMI] 31.0-31.9, adult
CPT/HCPCS: 36415; 71046; 74181; 76705; 78226; 80053; 80074; 81001; 82103; 82105; 82390; 82550; 82728; 83516; 83540; 83550; 83605; 83735; 83880; 84484; 85025; 85027; 85610; 85730; 86038; 86376; 86850; 86900; 86901; 87040; 87045; 87046; 87070; 87075; 87077; 87186; 87205; 87324; 88304; 93005; 93306; 94640; 96361; 96365; 96366; 96375; 99285

== ENCOUNTER 2019-06-14 08:44 | Day surgery (SDC) | payer MEDICARE ==
[2019-06-10 13:21] VITALS: BMI 28.1
[~2019-06-14 08:44] MED LIST: LACTATED RINGERS 1,000 ML IV SCH
[2019-06-14 09:08] VITALS: RESP 16; TEMP 95.7
[2019-06-14 09:12] LABS: Glucose,Whole Blood 128 mg/dL (75-99)
[2019-06-14] MEDS ORDERED: LIDOCAINE 1% (10MG/ML) FOR IV START INTRADERMA ONE (09:12)
[2019-06-14 09:20] LABS: Basophils # (A) 0.1 k/uL (0-0.2); Basophils % (A) 1 %; Eosinophils # (A) 0.2 k/uL (0-0.7); Eosinophils % (A) 3 %; HCT 45.9 % (39.0-53.0); HGB 15.1 gm/dL (13.0-17.5); Lymphocytes # (A) 1.8 k/uL (1.0-4.8); Lymphocytes % (A) 24 %; Mean Platelet Volume 8.3; Monocytes # (A) 0.5 k/uL (0-1.0); Monocytes % (A) 6 %; Neutrophils # (A) 4.7 k/uL (1.3-7.7); Neutrophils % (A) 64 %; Platelet Count 298 k/uL (150-450); RBC 5.04 m/uL (4.30-5.90); RDW 13.8 % (11.5-15.5); WBC 7.3 k/uL (3.8-10.6)
[2019-06-14] MEDS ORDERED: LEVOFLOXACIN 500MG-D5W PMX 500 MG in DEXTROSE/WATER 1 100ML.BAG IVPB STA (09:32)
[2019-06-14] MEDS ORDERED: INDOMETHACIN 50MG SUPPOSITORY RECTAL ONE (09:33)
[2019-06-14 09:42] LABS: Albumin 4.3 g/dL (3.5-5.0); Calcium 9.8 mg/dL (8.4-10.2); Potassium 4.6 mmol/L (3.5-5.1); Total Bilirubin 0.6 mg/dL (0.2-1.3); Total Protein 8.1 g/dL (6.3-8.2)
[2019-06-14] MEDS ORDERED: LIDOCAINE 1% INJ 10MG/ML (20 ML MDV) ONE (09:59)
[2019-06-14] MEDS ORDERED: PROPOFOL 10 MG/ML 20 ML VIAL IV ONE (09:59)
[2019-06-14] MEDS ORDERED: GLUCAGON 1 MG/ML VIAL ONE (09:59)
[2019-06-14] MEDS ORDERED: MIDAZOLAM 2 MG/2 ML VIAL ONE (09:59)
[2019-06-14] MEDS ORDERED: fentaNYL (PF) 50 MCG/ML 2 ML AMP ONE (09:59)
[2019-06-14] MEDS ORDERED: IOPAMIDOL-300 50ML BTL INJ ONE ×2 (10:09→10:14)
--- NOTE | 2019-06-14 10:56 | P.PCN ---
Date of Procedure: 06/14/19 Procedure(s) Performed: Brief history: Patient is a 74-year-old white male scheduled for an ERCP for post-laparoscopic bile leak. He underwent gallbladder surgery 2 weeks ago and was noted to have acute gangrenous cholecystitis and underwent a WILBERTO drain placement. His been having small amount of bile draining through the WILBERTO drain for the last 2 weeks and hence we're consulted for an ERCP with CBD stent placement. Procedure performed: ERCP with biliary sphincterotomy and CBD stent placement, and antral biopsy Preoperative diagnoses: Post cholecystectomy bile leak IV sedation per anesthesia: Procedure: After informed consent was obtained from the patient and after the risks benefits and complications including bleeding perforation and pancreatitis explained in detail the patient was brought into the endoscopy unit. The patient was placed in prone position and IV conscious sedation was administered by anesthesia under continuous monitoring. The Olympus side-viewing duodenoscope was then inserted into the mouth and esophagus intubated without any difficulty. The scope was gradually advanced into the stomach and duodenum. The major papilla was identified without any difficulty. Initial cannulation resulted in the base of the lesion of the pancreatic duct that appeared normal. Subsequent cannulation resulted in a pacemaker the common bile duct that appeared very thin caliber duct measuring about 3-4 mm in diameter. The cystic duct appeared normal however there was a leak noted at the cystic cystic duct stump. At this time the catheter was exchanged over a guidewire and initially I attempted to place, 5 cm, 7-Palestinian Fallentimber stent but I could not deploy the stent despite multiple times. I repeated this maneuver after the scope was completely pulled out and the stent retrieved and the scope was advanced into the ampullary orifice and the CBD cannulated with the guidewire. The catheter was removed and Into place the same stent began and despite multiple attempts the stent could not be passed through the ampullary orifice. Because of the clinical suspicion for papillary stenosis I decided to proceed with free cannulation of the common bile duct with a biliary sphincterotome and at this time a biliary sphincterotomy was performed at 11 o'clock position and was ext ended to 78 mm in length. Following this a 7-Palestinian, 5 cm pigtail catheter was placed over the guidewire and gently advanced into the proximal CBD and the stent was placed. In the bulb of the duodenum there were 2 ulcerations measuring 1 m 1.5 cm in size with a clean base and no bleeding. Biopsies were done from the antrum of the stomach. The patient tolerated the procedure well. Impression: 1. Thin caliber common bile duct with the bile leak noted at the cystic duct stump status post biliary sphincterotomy followed by 7-Palestinian, 5 cm pigtail stent placement as described above 2. Normal pancreatic duct 3. 1 cm and 1.5 cm duodenal bulbar ulcers with no active bleeding 3. Mild antral gastritis Recommendations: The findings of this examination were discussed with the patient as well as a family. At this time will be with the biopsy sites. He'll be started on Prilosec 20 mg daily. Will plan a repeat EGD with CBD stent removal in 6 weeks from now.
--- NOTE | 2019-06-14 11:13 | FL ---
Fluoroscopy HISTORY: Pain 1.29 minutes fluoroscopy time supplied to the referring clinician. 4 intraoperative C-arm images doc ument the procedure. See dictated report from gastroenterology.
[2019-06-14 11:14] VITALS: BP 134/75; PULSE 68
== END 2019-06-14 11:34 | disposition home or self-care (01) ==
LOC: ORWHC2ENDO 08:44
PROVIDERS: ATTEND Internal Medicine Gastroenterology
DX: K91.5 Postcholecystectomy syndrome (principal); K29.50 Unspecified chronic gastritis without bleeding; K26.9 Duodenal ulcer, unspecified as acute or chronic, without hemorrhage or perforation; I10 Essential (primary) hypertension; E78.5 Hyperlipidemia, unspecified; E11.9 Type 2 diabetes mellitus without complications; Z79.82 Long term (current) use of aspirin; Z79.4 Long term (current) use of insulin; Z79.899 Other long term (current) drug therapy; Z79.02 Long term (current) use of antithrombotics/antiplatelets; Z90.49 Acquired absence of other specified parts of digestive tract
CPT/HCPCS: 80053; 85025; 74330; 43274; 43261; J1956; Q9967; 43260; 43262; 88305

== ENCOUNTER 2019-06-15 09:15 | Inpatient (IN) | payer MEDICARE ==
[2019-06-15] MEDS ORDERED: PANTOPRAZOLE 40 MG/10 ML VIAL IVP STA (10:00)
[2019-06-15] MEDS ORDERED: HYDROmorphone 1 MG/ML 1 ML SYRINGE IVP STA (10:00)
[2019-06-15] MEDS ORDERED: SODIUM CHLORIDE 0.9% 1,000 ML IV ONE ×2 (10:00→10:49)
--- NOTE | 2019-06-15 10:08 | ED ---
Abdominal Pain HPI <Tray Alejandra - Last Filed: 06/15/19 11:21> - General Source: patient, RN notes reviewed, old records reviewed Mode of arrival: ambulatory Limitations: no limitations <Ju Lim - Last Filed: 06/15/19 11:59> - General Chief Complaint: Abdominal Pain Stated Complaint: gallbladder issues Time Seen by Provider: 06/15/19 09:32 - History of Present Illness Initial Comments: 74-year-old male presents emergency department today with complaints of upper abdominal pain, nausea. Patient reports that he had a biliary stent placed by Dr. Wang yesterday. Patient is status post cholecystectomy and has a WILBERTO drain. This was done by Dr. Ellington. Patient reports he's been having some sharp knife stabbing abdominal pain. He does report after the procedure area last night he did have some episodes of emesis. He states that he vomited up one of the stents that was placed. She reports that when he arrives he Dr. Wang was to be contacted. (Ju Lim) - Related Data Home Medications Medication Instructions Recorded Confirmed Aspirin EC [Ecotrin Low Dose] 81 mg PO DAILY 05/23/19 06/14/19 Cholecalciferol [Vitamin D3 (25 1,000 unit PO BID 05/23/19 06/14/19 Mcg = 1000 Iu)] Cinnamon 1000mg + Chromium 1 tab PO BID 05/23/19 06/14/19 Escitalopram [Lexapro] 5 mg PO DAILY 05/23/19 06/14/19 Levothyroxine Sodium [Synthroid] 75 mcg PO DAILY 05/23/19 06/14/19 Lovastatin [Altoprev] 20 mg PO HS 05/23/19 06/14/19 Multivit-Min/FA/Lycopen/Lutein 1 tab PO DAILY 05/23/19 06/14/19 [Centrum Silver Men Tablet] Pine-3 Fatty Acids/Fish Oil [Fish 1 cap PO TID 05/23/19 06/14/19 Oil 1,000 mg Softgel] Saw [place] 450mg 1 tab PO QID 05/23/19 06/14/19 Tamsulosin HCl [Flomax] 0.4 mg PO DAILY 05/23/19 06/14/19 metFORMIN HCL 1,000 mg PO BID 05/23/19 06/14/19 Insulin Degludec [Tresiba 35 units SQ DAILY 06/10/19 06/14/19 Flextouch U-100] Lisinopril [Prinivil] 5 mg PO HS 06/10/19 06/14/19 Previous Rx's Medication Instructions Recorded Acetaminophen Tab [Tylenol Tab] 650 mg PO Q4H PRN #30 tablet 05/31/19 Allergies Allergy/AdvReac Type Severity Reaction Status Date / Time No Known Allergies Allergy Verified 06/15/19 09:25 Review of Systems ROS Other: All systems not noted in ROS Statement are negative. <Tray Alejandra - Last Filed: 06/15/19 11:21> ROS Other: All systems not noted in ROS Statement are negative. <Ju Lim - Last Filed: 06/15/19 11:59> ROS Statement: Those systems with pertinent positive or pertinent negative responses have been documented in the HPI. Past Medical History Past Medical History: Diabetes Mellitus, Hyperlipidemia, Hypertension, Pneumonia, Prostate Disorder, Sleep Apnea/CPAP/BIPAP, Thyroid Disorder Additional Past Medical History / Comment(s): BPH, has cpap machine. 05/23/19- 05/31/19 pneumonia,cholycystitis. has J-P drain abd.rt side History of Any Multi-Drug Resistant Organisms: None Reported Past Surgical History: Cholecystectomy Additional Past Surgical History / Comment(s): WILBERTO drain from chris. stent to gal lbladder area Past Anesthesia/Blood Transfusion Reactions: No Reported Reaction Past Psychological History: Depression Smoking Status: Former smoker Past Alcohol Use History: Occasional Past Drug Use History: None Reported - Past Family History Mother Family Medical History: CVA/TIA, Myocardial Infarction ([place]) Father Family Medical History: Cancer Additional Family Medical History / Comment(s): prostate cancer <Ju Lim - Last Filed: 06/15/19 11:59> General Exam Limitations: no limitations General appearance: alert, in no apparent distress Head exam: Present: atraumatic, normocephalic, normal inspection Eye exam: Present: normal appearance, PERRL, EOMI. Absent: scleral icterus, conjunctival injection, periorbital swelling ENT exam: Present: normal exam, mucous membranes moist Neck exam: Present: normal inspection. Absent: tenderness, meningismus, lympha denopathy Respiratory exam: Present: normal lung sounds bilaterally. Absent: respiratory distress, wheezes, rales, rhonchi, stridor Cardiovascular Exam: Present: regular rate, normal rhythm, normal heart sounds. Absent: systolic murmur, diastolic murmur, rubs, gallop, clicks GI/Abdominal exam: Present: soft, tenderness (left upper quadrant, and minimal RUQ tenderness. WILBERTO drain over R abdomen, appears well. 3cc fluid in WILBERTO drain. ), normal bowel sounds. Absent: distended, guarding, rebound, rigid Extremities exam: Present: normal inspection, full ROM, normal capillary refill. Absent: tenderness, pedal edema, joint swelling, calf tenderness Back exam: Present: normal inspection Neurological exam: Present: alert, oriented X3, CN II-XII intact Psychiatric exam: Present: normal affect, normal mood Skin exam: Present: warm, dry, intact, normal color <Ju Lim - Last Filed: 06/15/19 11:59> - General Exam Comments Initial Comments: Pleasant 74-year-old male. (Ju Lim) Course Vital Signs 06/15/19 06/15/19 09:20 11:14 Temperature 98.5 F 96.9 F L Pulse Rate 78 80 Respiratory 18 18 Rate Blood Pressure 144/93 148/90 O2 Sat by Pulse 96 97 Oximetry Medical Decision Making - Lab Data Result diagrams: 06/15/19 09:39 06/15/19 09:39 <Tray Alejandra - Last Filed: 06/15/19 11:21> - Lab Data Result diagrams: 06/15/19 09:39 06/15/19 09:39 - Radiology Data Radiology results: report reviewed <Ju Lim - Last Filed: 06/15/19 11:59> - Medical Decision Making Patient reevaluated and reexamined by myself, Dr. Alejnadra. Patient resting comfortably in bed. Patient states discomfort is much better. Abdomen is soft however patient still has mild to moderate abdominal tenderness on exam. Patient does have pictures of probable emesis of stent. Patient states the first time was lost and believes it was still in the stomach however second stent was placed. Dr. Wang was notified. I did discuss the case with Dr. Eagle who will admit covering for Dr. Chen and did evaluate in the emergency depart ment. I do agree with PA findings. This includes diagnostic interpretation and treatment plan. (Tray Alejandra) Patient is a 74-year-old male presents to service today and a post-ERCP and stent placement with complaints of worsening abdominal pain and sense of vomiting. He vomited a stent. Patient was given IV fluids T. Patient has evidence of pancreatitis on lab work. I discussed the case with Dr. Wang soon as the Patient arrived and he stated this was likely consistent with increased tightness. CT on pelvis was completed without contrast this Patient does have evidence of dehydration and acute kidney injury. There is evidence of some fluid or gallbladder fossa but this is a he is status post cholecystectomy. He also has a WILBERTO drain from the gangrenous gallbladder. His pain is well- controlled at this time. Patient will be admitted this time with consult to Dr. Wang. I also discussed the case with Dr. Christine (Ju Lim) - Lab Data Lab Results 06/15/19 06/15/19 Range/Units 09:39 09:39 WBC 14.7 H (3.8-10.6) k/uL RBC 5.19 (4.30-5.90) m/uL Hgb 15.5 (13.0-17.5) gm/dL Hct 47.0 (39.0-53.0) % MCV 90.6 (80.0-100.0) fL MCH 29.9 (25.0-35.0) pg MCHC 33.0 (31.0-37.0) g/dL RDW 13.9 (11.5-15.5) % Plt Count 333 (150-450) k/uL Neutrophils % 90 % Lymphocytes % 6 % Monocytes % 4 % Eosinophils % 0 % Basophils % 0 % Neutrophils # 13.2 H (1.3-7.7) k/uL Lymphocytes # 0.8 L (1.0-4.8) k/uL Monocytes # 0.6 (0-1.0) k/uL Eosinophils # 0.0 (0-0.7) k/uL Basophils # 0.0 (0-0.2) k/uL Sodium 134 L (137-145) mmol/L Potassium 4.8 (3.5-5.1) mmol/L Chloride 94 L (98-107) mmol/L Carbon Dioxide 25 (22-30) mmol/L Anion Gap 15 mmol/L BUN 40 H (9-20) mg/dL Creatinine 1.91 H (0.66-1.25) mg/dL Est GFR (CKD-EPI)AfAm 39 (>60 ml/min/1.73 sqM) Est GFR (CKD-EPI)NonAf 34 (>60 ml/min/1.73 sqM) Glucose 236 H (74-99) mg/dL Calcium 8.6 (8.4-10.2) mg/dL Total Bilirubin 0.7 (0.2-1.3) mg/dL AST 40 (17-59) U/L ALT 51 H (4-49) U/L Alkaline Phosphatase 89 (38-126) U/L Total Protein 7.3 (6.3-8.2) g/dL Albumin 4.0 (3.5-5.0) g/dL Amylase 920 H* (30-110) U/L Lipase 9681 H (23-300) U/L - Radiology Data Sense of abnormal attenuation in the peripancreatic region and distal margin of the stomach and duodenum. Correlate for pancreatitis. Intra-abdominal catheter noted. Evidence of biliary stent. Small Amount of air seen in the gallbladder fossa with abnormal attenuation could represent a small fluid collection hematoma measuring 3 cm. Correlate recent surgery. Additionally the air bubbles could relate to be intra-abdominal catheter although infectious etiology excluded. Small amount of increased attenuation in the right pelvic sidewall representing fluid. Slightly decreased in attenuation hemorrhagic component differential diagnosis. (Ju Lim) Disposition <Tray Alejandra - Last Filed: 06/15/19 11:21> Is patient prescribed a controlled substance at d/c from ED?: No Time of Disposition: 11:59 <Ju Lim - Last Filed: 06/15/19 11:59> Clinical Impression: Pancreatitis Disposition: ADMITTED IP TO THIS HOSP Condition: Stable Referrals: Td Chen MD [Primary Care Provider] - 1-2 days
[2019-06-15 10:21] LABS: Basophils % (A) 0 %; Eosinophils % (A) 0 %; HGB 15.5 gm/dL (13.0-17.5); Lymphocytes # (A) 0.8 k/uL (1.0-4.8); Lymphocytes % (A) 6 %; MCH 29.9 pg (25.0-35.0); MCV 90.6 fL (80.0-100.0); Mean Platelet Volume 8.2; Monocytes # (A) 0.6 k/uL (0-1.0); Monocytes % (A) 4 %; Neutrophils # (A) 13.2 k/uL (1.3-7.7); Neutrophils % (A) 90 %; Platelet Count 333 k/uL (150-450); RBC 5.19 m/uL (4.30-5.90); RDW 13.9 % (11.5-15.5); WBC 14.7 k/uL (3.8-10.6)
[2019-06-15 10:27] LABS: Calcium 8.6 mg/dL (8.4-10.2); Potassium 4.8 mmol/L (3.5-5.1); Total Bilirubin 0.7 mg/dL (0.2-1.3); Total Protein 7.3 g/dL (6.3-8.2)
--- NOTE | 2019-06-15 11:24 | CT ---
EXAMINATION TYPE: CT abdomen pelvis wo con DATE OF EXAM: 06/15/2019 COMPARISON: MRCP 05/24/2019 HISTORY: LUQ pain CT DLP: 729.4 mGycm Automated exposure control for dose reduction was used. TECHNIQUE: Helical acquisition of images was performed from the lung bases through the pelvis. FINDINGS: LUNG BASES: The heart is enlarged there subsegmental areas of consolidation likely in the basis of sc ar or atelectasis small hiatal hernia noted. LIVER/GB: Biliary stent noted. Drainage catheter and right upper abdomen. There is abnormal attenuati on in the gallbladder fossa with 2-3 bubbles of air which could be related to the intra-abdominal cat heter. Correlate clinically to exclude a tiny amount of free intraperitoneal air. Small fluid collect ion in the region could be related to the catheter or tiny amount of hematoma. PANCREAS: Abnormal attenuation the peripancreatic region and adjacent to the gastric antrum and duode nal bulb. SPLEEN: No significant abnormality is seen. ADRENALS: No significant abnormality is seen. KIDNEYS: No significant abnormality is seen. ADENOPATHY: None visualized. OSSEOUS STRUCTURES: Chronic rib deformities noted. Hypertrophic and degenerative changes spine with a grade 1 anterolisthesis L4 relative to L5. Multilevel facet arthropathy. BOWEL: No significant abnormality is seen. OTHER: There is a drainage catheter within the right upper quadrant. There appears to be a biliary st ent. Small amount of fluid in the left paracolic gutter. Small amount free fluid in the right pelvis. Prostate calcification seen. Bilateral fat-containing inguinal hernias. Hiatal hernia noted. Aorta of normal caliber with atherosclerotic changes. IMPRESSION: 1. Extensive abnormal attenuation in the peripancreatic region and adjacent to the distal margin of t he stomach and duodenal bulb. Correlate for pancreatitis versus peptic ulcer disease. 2. There is an intra-abdominal catheter noted. There is additional evidence of a biliary stent. Small amount of air is seen in the gallbladder fossa with abnormal attenuation which could represent a sma ll fluid collection, bilateral or hematoma measuring approximately 3 cm. Correlate for recent surgery . Additionally, the air bubbles could be related to the adjacent intra-abdominal catheter although in fectious etiology not excluded. Correlate clinically and with surgical analysis. 3. small amount of increased attenuation in the right pelvic sidewall representing free fluid. Slight ly increased in attenuation and hemorrhagic component in the differential diagnosis
[2019-06-15] MEDS ORDERED: NALOXONE 0.4 MG/ML 1 ML VIAL IV PRN (11:59)
[2019-06-15] MEDS ORDERED: KETOROLAC 30 MG/ML 1 ML VIAL IVP PRN (11:59)
[2019-06-15] MEDS ORDERED: ONDANSETRON 4 MG/2 ML VIAL IVP PRN (11:59)
[2019-06-15] MEDS ORDERED: IBUPROFEN 400 MG TAB PO PRN (11:59)
[2019-06-15] MEDS ORDERED: ACETAMINOPHEN TAB 325 MG TAB PO PRN (11:59)
[2019-06-15] MEDS: HYDROmorphone 1 MG/ML 1 ML SYRINGE IVP PRN ×4 (12:16→23:15)
[2019-06-15 12:33] LABS: Appearance,Urine Cloudy (Clear); Bilirubin,Urine Negative (Negative); Blood,Urine Negative (Negative); Color,Urine Yellow; Glucose,Urine (UA) Negative (Negative); Hyaline Casts,Urine 9 /lpf (0-2); Ketones,Urine Negative (Negative); Leukocyte Esterase,Urine Negative (Negative); Mucus,Urine Rare /hpf; Nitrite,Urine Negative (Negative); Protein,Urine 1+ (Negative); RBC,Urine <1 /hpf (0-5); Squamous Epithelial Cell,Urine <1 /hpf (0-4); Urobilinogen,Urine <2.0 mg/dL (<2.0); WBC,Urine 4 /hpf (0-5)
--- NOTE | 2019-06-15 16:51 | P.HPIM ---
History of Present Illness H&P Date: 06/15/19 Chief Complaint: Abdominal pain History of presenting complaint: This is a pleasant 74-year-old patient of Dr. Chen. Patient was here in the hospital from May 22 through May 30. Admitted with pneumonia and acute cholecystitis. On May 25 underwent cholecystectomy. With a WILBERTO drain. Had some bile leak. Patient seen by Dr. Ellington from general surgery. Sent over the WILBERTO drain. Yesterday in June 13 patient underwent ERCP with biliary sphincterotomy and a CBD stent placement with Dr. Kat Goldman. Patient went home and started having increasing abdominal pain. Some nausea. No fever no chills. Return to the ER. Daughter the bedside. Patient diagnosed of acute pancreatitis. Dr. Kat Goldman was consulted. Review of systems: GEN.: Tired EYES: None HEENT: None NECK: None RESPIRATORY: None CARDIOVASCULAR: None GASTROINTESTINAL: As above GENITOURINARY: None MUSCULOSKELETAL: Some joint pains LYMPHATICS: None HEMATOLOGICAL: None PSYCHIATRY: None NEUROLOGICAL: None Past medical history to include: Diabetes, depression, BPH, hyperlipidemia, hypertension, hypothyroid, recent biliary leak following cholecystectomy Social history: Retired. Lives with his . No smoking or alcohol Family history: Reviewed, noncontributory to presentation Physical examination: VITAL SIGNS: 98.5, 78, 18, 144/93, 96% on room air GENERAL: BMI 28.2, laying in bed, a bit uncomfortable. EYES: Pupils equal. Conjunctiva normal. HEENT: External appearance of nose and ears normal, oral cavity grossly normal. NECK: JVD not raised; masses not palpable. HEART: First and second heart sounds are normal; no edema. LUNGS: Respiratory rate normal, lungs clear. ABDOMEN: Soft, epigastric tenderness with no guarding or rigidity, liver spleen not palpable, no masses palpable. PSYCH: [Alert and oriented x3; mood and affect tired l. NEUROLOGICAL: Cranial nerves grossly intact; no facial asymmetry, power and sensation grossly intact. LYMPHATICS: No lymph nodes palpable in the axilla and neck INVESTIGATIONS, reviewed in the clinical context: White count 14.7 hemoglobin 15.5 platelets 333 potassium 4.8 bun 40 creatinine 1.91 amylase 920 lipase 9681 EKG tracing personally reviewed by me-normal sinus rhythm Computed tomography scan of the abdomen-extensive abdominal attenuation in the peripancreatic region. Previous testing: Bun 23 creatinine 1.06 Assessment: -Acute post-ERCP pancreatitis -May 25 patient underwent acute cholecystectomy followed by biliary leak and went home with a WILBERTO drain, followed by a ERCP with CBD stent placement on June [address] Kat Goldman. -Acute renal failure possibly prerenal from fluid loss -Diabetes mellitus type 2, -BPH -Hyperlipidemia -Hypothyroid -Depression otherwise specified Plan: Patient has been made nothing by mouth. IV fluids. Lovenox for DVT prophylaxis. Consultation to both GI and Dr. Ellington. Care was discussed the patient daughter with the bedside. Other home medications resumed. No clinical evidence of infection. Past Medical History Past Medical History: Diabetes Mellitus, Hyperlipidemia, Hypertension, Pneumonia, Prostate Disorder, Sleep Apnea/CPAP/BIPAP, Thyroid Disorder Additional Past Medical History / Comment(s): BPH, has cpap machine. 05/23/19- 05/31/19 pneumonia,cholycystitis. has J-P drain abd.rt side History of Any Multi-Drug Resistant Organisms: None Reported Past Surgical History: Cholecystectomy Additional Past Surgical History / Comment(s): WILBERTO drain from crhis. stent to gallbladder area Past Anesthesia/Blood Transfusion Reactions: No Reported Reaction Past Psychological History: Depression Smoking Status: Former smoker Past Alcohol Use History: Occasional Additional Past Alcohol Use History / Comment(s): smoked for short time age 30 Past Drug Use History: None Reported - Past Family History Mother Family Medical History: CVA/TIA, Myocardial Infarction ([place]) Father Family Medical History: Cancer Additional Family Medical History / Comment(s): prostate cancer Medications and Allergies Home Medications Medication Instructions Recorded Confirmed Type Cholecalciferol [Vitamin D3 (25 1,000 unit PO BID 05/23/19 06/15/19 History Mcg = 1000 Iu)] Cinnamon 1000mg + Chromium 1 tab PO BID 05/23/19 06/15/19 History Escitalopram [Lexapro] 10 mg PO DAILY 05/23/19 06/15/19 History Levothyroxine Sodium [Synthroid] 75 mcg PO DAILY 05/23/19 06/15/19 History Lovastatin [Altoprev] 20 mg PO HS 05/23/19 06/15/19 History Saw [place] 450mg 1 tab PO QID 05/23/19 06/15/19 History Tamsulosin HCl [Flomax] 0.4 mg PO HS 05/23/19 06/15/19 History metFORMIN HCL 1,000 mg PO BID 05/23/19 06/15/19 History Acetaminophen Tab [Tylenol Tab] 650 mg PO Q4H PRN #30 tablet 05/31/19 06/15/19 Rx Insulin Degludec [Tresiba 35 units SQ DAILY 06/10/19 06/15/19 History Flextouch U-100] Lisinopril [Prinivil] 5 mg PO HS 06/10/19 06/15/19 History Omeprazole [PriLOSEC] 20 mg PO QAM 06/15/19 06/15/19 History Allergies Allergy/AdvReac Type Severity Reaction Status Date / Time No Known Allergies Allergy Verified 06/15/19 12:25 Physical Exam Vitals: Vital Signs Temp Pulse Pulse Resp BP BP Pulse Ox 06/15/19 14:56 97.6 F 85 15 143/83 95 06/15/19 12:19 97.8 F 68 18 161/84 97 06/15/19 12:06 68 18 161/84 97 06/15/19 11:14 96.9 F L 80 18 148/90 97 06/15/19 09:20 98.5 F 78 18 144/93 96 Intake and Output 06/15/19 06/15/19 06/15/19 06:59 14:59 22:59 Other: Weight 81.647 kg Results CBC & Chem 7: 06/15/19 09:39 06/15/19 09:39 Labs: Abnormal Lab Results - Last 24 Hours (Table) 06/15/19 06/15/19 06/15/19 Range/Units 09:39 09:39 12:15 WBC 14.7 H (3.8-10.6) k/uL Neutrophils # 13.2 H (1.3-7.7) k/uL Lymphocytes # 0.8 L (1.0-4.8) k/uL Sodium 134 L (137-145) mmol/L Chloride 94 L (98-107) mmol/L BUN 40 H (9-20) mg/dL Creatinine 1.91 H (0.66-1.25) mg/dL Glucose 236 H (74-99) mg/dL ALT 51 H (4-49) U/L Amylase 920 H* (30-110) U/L Lipase 9681 H (23-300) U/L Urine Protein 1+ H (Negative) Hyaline Casts 9 H (0-2) /lpf Urine Mucus Rare H (None) /hpf Thrombosis Risk Factor Assmnt - Choose All That Apply Other Risk Factors: Yes Each Risk Factor Represents 2 Points: Age 61-74 years Thrombosis Risk Factor Assessment Total Risk Factor Score: 2 Thrombosis Risk Factor Assessment Level: Low Risk
[2019-06-15 17:30] LABS: Glucose,Whole Blood 92 mg/dL (75-99)
[2019-06-15] MEDS ORDERED: IPRATROPIUM-ALBUTEROL 3 ML NEB INHALATION PRN (18:03)
[2019-06-15] MEDS: INSULIN ASPART (NovoLOG) 100 UNIT/ML VIAL SQ SCH ×2 (18:04→21:26)
--- NOTE | 2019-06-15 18:11 | CONS ---
CONSULTATION DATE OF DICTATION: 06/15/2019 REASON FOR CONSULTATION: Acute post-ERCP pancreatitis. HISTORY OF PRESENT ILLNESS: The patient is a 74-year-old pleasant white male who recently underwent gallbladder surgery by Dr. Allen about 2 weeks ago. He had a prolonged hospitalization for acute gangrenous cholecystitis, and a WILBERTO drain was placed. He was seen by Dr. Allen on an outpatient basis 5 days ago and, because of persistent bile leak, we were consulted for an ERCP and CBD stent placement. The patient underwent an ERCP with biliary sphincterotomy and CBD stent placement for papillary stenosis and bile leak. After he went home, he did well for 3 or 4 hours and then he started having some epigastric discomfort and multiple episodes of nausea and vomiting. His daughter called me yesterday evening and I suggested that he go on a clear liquid diet and start on [id number] Tylenol 2 tablets every 6 hours as needed. Apparently the patient continued to have pain all through the night, and this morning his daughter called me again and I recommended that he be taken to the emergency room. In the ER he was evaluated by the ER physician and was noted to have elevated amylase and lipase consistent with acute pancreatitis; hence he was admitted to the hospital to be evaluated further. He recently some pain medication in the ER and he is feeling better. He continues to have persistent epigastric discomfort. He denies any fever, chills or night sweats. He had some nausea and vomiting early this morning. Currently he is doing well. Since the ERCP the WILBERTO drain has completely stopped. PAST MEDICAL HISTORY: Significant for diabetes mellitus, hypertension, hypothyroidism, anxiety, depression. MEDICATIONS: Medications at home include Prinivil, Flomax, metformin, saw palmetto, , multivitamin, lovastatin, levothyroxine, Lexapro, vitamin D3. PAST SURGICAL HISTORY: Recent gallbladder surgery with WILBERTO drain done 2 weeks ago, history of ERCP yesterday. SOCIAL HISTORY: Former smoker. No alcohol use. FAMILY HISTORY: Mother had coronary artery disease and father had prostate cancer. REVIEW OF SYSTEMS: CARDIOPULMONARY: No chest pain or shortness of breath. GENITOURINARY: No dysuria or hematuria. MUSCULOSKELETAL: Unremarkable. SKIN: Unremarkable. ENDOCRINE: Unremarkable. PSYCHIATRIC: History of anxiety, depression. NEUROLOGY: Unremarkable. ENT/VISION: Unremarkable. CONSTITUTIONAL: No recent weight loss. No fever, chills, night sweats. PHYSICAL EXAMINATION: He appears comfortable, in no apparent distress. Vital signs are stable. Blood pressure is 161/84, pulse 68, temperature 97.8. HEENT examination unremarkable. Conjunctivae pink. Sclerae anicteric. Oral cavity no lesions. NECK: No JVD or lymph node enlargement. CHEST: Clear to auscultation. HEART: Regular rate and rhythm. ABDOMEN: Soft. There was severe tenderness in the epigastric area into the periumbilical area and some in the left upper quadrant area. There was bowel sounds are positive. No organomegaly. EXTREMITIES: No pedal edema. WILBERTO drain in place which has no fluid noted. NEUROLOGIC: Alert and oriented x3. No focal deficits. LABS/IMAGING: Labs done at the time of admission to the hospital: WBC 13.7, hemoglobin 15.5, platelets are normal. BUN is 40, creatinine 1.91. Yesterday BUN and creatinine were normal. ALT and AST are 40 and 51, respectively. T-bilirubin and alkaline phosphatase are normal. Amylase is 920. Lipase is 9631. He had a CT of the abdomen and pelvis done in the emergency room early this morning that showed some air bubbles in the gallbladder fossa and evidence of WILBERTO drain, extensive abnormal attenuation in the peripancreatic region to the distal margin of the stomach and duodenal bulb consistent with acute pancreatitis. Small amount of free fluid noted in the right pelvis. IMPRESSION: 1. Post endoscopic retrograde cholangiopancreatography pancreatitis. Patient is status post ERCP yesterday for persistent bile leak and he underwent biliary sphincterotomy with a CBD stent placement. 2. History of acute gangrenous cholecystitis, status post open cholecystectomy with WILBERTO drain by Dr. Allen 2 weeks ago. 3. Small amount of intraperitoneal air with small gas bubbles noted in the gallbladder fossa, probably related to the WILBERTO catheter placement. RECOMMENDATIONS: 1. Aggressive IV hydration. 2. Pain medications as needed. 3. Will start him on IV antibiotics, as intraabdominal infection cannot be excluded, given the recent ERCP. 4. N.p.o. except for ice chips. 5. Repeat labs in the morning and will follow with you closely. 6. Will consult Dr. Allen, as patient is known to her. Thank you for this consultation. MMODL / IJN: [id number] /
[2019-06-15] MEDS: PIPERACILLIN-TAZOBACTAM 3.375 GM in SODIUM CHLORIDE 0.9% 100 ML IVPB SCH ×2 (18:12→23:06)
[2019-06-15] MEDS: ENOXAPARIN 40 MG/0.4 ML SYRINGE SQ SCH (18:13)
[2019-06-15] MEDS: SODIUM CHLORIDE 0.9% 1,000 ML IV SCH ×2 (19:36→21:28)
[2019-06-15] MEDS: ESCITALOPRAM 10 MG TAB PO SCH (19:36)
[2019-06-15] MEDS ORDERED: LISINOPRIL 5 MG TAB PO SCH (21:00)
[2019-06-15] MEDS ORDERED: INSULIN NPH 300 UNIT/3 ML VIAL SQ SCH (21:00)
[2019-06-15 21:04] LABS: Glucose,Whole Blood 84 mg/dL (75-99)
[2019-06-15] MEDS: ATORVASTATIN 10 MG TAB PO SCH (21:28)
[2019-06-15] MEDS: TAMSULOSIN 0.4 MG CAP.ER.24H PO SCH (21:28)
[2019-06-16] MEDS: HYDROmorphone 1 MG/ML 1 ML SYRINGE IVP PRN ×7 (02:20→23:33)
[2019-06-16] MEDS: SODIUM CHLORIDE 0.9% 1,000 ML IV SCH ×4 (02:52→23:25)
[2019-06-16] MEDS: LEVOTHYROXINE 75 MCG TAB PO SCH (05:20)
[2019-06-16 06:50] LABS: Glucose,Whole Blood 67 mg/dL (75-99)
[2019-06-16] MEDS: INSULIN ASPART (NovoLOG) 100 UNIT/ML VIAL SQ SCH ×4 (07:24→20:22)
[2019-06-16] MEDS: INSULIN DETEMIR (LEVEMIR) 100 UNIT/ML SYR SQ SCH (07:31)
[2019-06-16 07:43] LABS: Glucose,Whole Blood 98 mg/dL (75-99)
[2019-06-16] MEDS: ESCITALOPRAM 10 MG TAB PO SCH (07:44)
[2019-06-16] MEDS: PIPERACILLIN-TAZOBACTAM 3.375 GM in SODIUM CHLORIDE 0.9% 100 ML IVPB SCH ×3 (07:51→23:26)
[2019-06-16] MEDS: ENOXAPARIN 40 MG/0.4 ML SYRINGE SQ SCH (07:52)
[2019-06-16 08:01] LABS: HCT 47.7 % (39.0-53.0); MCH 29.6 pg (25.0-35.0); MCHC 31.4 g/dL (31.0-37.0); MCV 94.2 fL (80.0-100.0); Platelet Count 276 k/uL (150-450); RBC 5.06 m/uL (4.30-5.90); RDW 14.1 % (11.5-15.5); WBC 22.2 k/uL (3.8-10.6)
[2019-06-16 08:21] LABS: Albumin 3.2 g/dL (3.5-5.0); Calcium 6.5 mg/dL (8.4-10.2); Potassium 4.5 mmol/L (3.5-5.1); Total Bilirubin 0.6 mg/dL (0.2-1.3); Total Protein 6.4 g/dL (6.3-8.2)
[2019-06-16] MEDS ORDERED: PANTOPRAZOLE 40 MG/10 ML VIAL IV SCH (09:00)
--- NOTE | 2019-06-16 10:31 | P.GSCN ---
<Katlyn Wren - Last Filed: 06/16/19 10:25> History of Present Illness Consult date: 06/16/19 Reason for Consult: Acute pancreatitis Requesting physician: Breanne Goldman History of present illness: CHIEF COMPLAINT: Acute pancreatitis HISTORY OF PRESENT ILLNESS: 74-year-old male known to surgical services due to recent laparoscopic lysis of adhesions and subtotal cholecystectomy secondary to acute gangrenous purulent cholecystitis with cystic duct obstruction due to gallstones. Patient developed a bile leak postoperatively, which was an expected outcome due to the complexity of his surgery and his hepatic lobe lateral wall being completely necrotic preventing suture closure or staple closure for cholecystectomy. Patient underwent ERCP with biliary sphincterotomy and common bile duct stent placement with Dr. Goldman on 06/14/2019. Patient was discharged home but developed abdominal pain, nausea, and vomiting and returned back to the ER. Patient examined this morning with Dr. Allen. Patient reports abdominal pain has improved. He denies further episodes of nausea or vomiting. WILBERTO drain emptied for 10 mL of bile drainage. PAST MEDICAL HISTORY: See list. PAST SURGICAL HISTORY: See list. MEDICATIONS: See list. ALLERGIES: See list. SOCIAL HISTORY: No illicit drug use. REVIEW OF SYSTEMS: CONSTITUTIONAL: Denies fever or chills. HEENT: Denies blurred vision, vision changes, or eye pain. Denies hemoptysis ENDOCRINE: Denies heat or cold intolerance. CARDIOVASCULAR: Denies chest pain or pressure. RESPIRATORY: No shortness of breath. GASTROINTESTINAL: See HPI for pertinent findings NEURO: Denies history of seizures. PSYCH: No depression or suicidal ideation HEMATOLOGIC: Denies bleeding disorders. LYMPHATIC: The patient denies any lumps and bumps around the neck. GENITOURINARY: Denies any blood in urine or increased urinary frequency. MUSCULOSKELETAL: Denies myalgias. Denies joint swelling. Denies decreased range of motion beyond patients baseline. SKIN: Denies pruitis. Denies rash. PHYSICAL EXAM: VITAL SIGNS: Reviewed GENERAL: Well-developed in no acute distress. Appears nontoxic. HEENT: No sclera icterus. Extraocular movements grossly intact. Moist buccal mucosa. Head is atraumatic, normocephalic. Hears conversational speech. No nasal drainage. NECK: Supple without lymphadenopathy. CHEST: Non-labored respirations and equal bilateral excursions. CARDIOVASCULAR: Regular rate with regular rhythm. Palpable 2+ radial pulses. ABDOMEN: Soft. Obese but nondistended. Nontender. Surgical incision healing well without erythema or drainage. WILBERTO drain noted with bile drainage. MUSCULOSKELETAL: No clubbing or cyanosis. NEUROLOGIC: No focal or lateralizing signs. Cranial nerves II through XII gr ossly intact. PSYCH: Appropriate affect. Alert and oriented to person, place and time. SKIN: Well perfused. Good skin turgor. LABORATORY DATA: WBC on admission 14.7. Repeat 22.2 Bilirubin 0.6. AST 35. ALT 33. On admission amylase 920. Lipase 9681. Repeat this morning 374 and 1953. IMAGING: CT abdomen and pelvis: Extensive abnormal attenuation in the pancreatic region and adjacent to the distal margin of the stomach and duodenal bulb. Correlate for pancreatitis pressed peptic ulcer disease. Intra-abdominal catheter noted. Additional evidence of biliary stent. Small amount of air seen in the gallbladder fossa with abnormal attenuation which could represent a small fluid collection or hematoma. ASSESSMENT: 1. ERCP induced pancreatitis 2. History of recent subtotal cholecystectomy secondary to gangrenous purulent cholecystitis with cystic duct obstruction secondary to gallstones 3. Expected post operative bile leak 4. Air within gallbladder fossa, expected secondary to WILBERTO drain 5. Leukocytosis PLAN: -GI on consult. Appreciate recommendations and input -Continue to monitor pancreatic enzymes. Repeat in a.m. -Continue antibiotics. Repeat CBC in a.m. -Begin clear liquid diet -Decrease IV fluids to 100 mL an hour -Continue WILBERTO drain. WILBERTO drain will likely be removed prior to patient being discharged home Nurse practitioner note has been reviewed by physician. Signing provider agrees with the documented findings, assessment, and plan of care. Past Medical History Past Medical History: Diabetes Mellitus, Hyperlipidemia, Hypertension, Pneumonia, Prostate Disorder, Sleep Apnea/CPAP/BIPAP, Thyroid Disorder Additional Past Medical History / Comment(s): BPH, has cpap machine. 05/23/19- 05/31/19 pneumonia,cholycystitis. has J-P drain abd.rt side History of Any Multi-Drug Resistant Organisms: None Reported Past Surgical History: Cholecystectomy Additional Past Surgical History / Comment(s): WILBERTO drain from chris. stent to gallbladder area Past Anesthesia/Blood Transfusion Reactions: No Reported Reaction Past Psychological History: Depression Smoking Status: Former smoker Past Alcohol Use History: Occasional Additional Past Alcohol Use History / Comment(s): smoked for short time age 30 Past Drug Use History: None Reported - Past Family History Mother Family Medical History: CVA/TIA, Myocardial Infarction ([place]) Father Family Medical History: Cancer Additional Family Medical History / Comment(s): prostate cancer Medications and Allergies Home Medications Medication Instructions Recorded Confirmed Type Cholecalciferol [Vitamin D3 (25 1,000 unit PO BID 05/23/19 06/15/19 History Mcg = 1000 Iu)] Cinnamon 1000mg + Chromium 1 tab PO BID 05/23/19 06/15/19 History Escitalopram [Lexapro] 10 mg PO DAILY 05/23/19 06/15/19 History Levothyroxine Sodium [Synthroid] 75 mcg PO DAILY 05/23/19 06/15/19 History Lovastatin [Altoprev] 20 mg PO HS 05/23/19 06/15/19 History Saw [place] 450mg 1 tab PO QID 05/23/19 06/15/19 History Tamsulosin HCl [Flomax] 0.4 mg PO HS 05/23/19 06/15/19 History metFORMIN HCL 1,000 mg PO BID 05/23/19 06/15/19 History Acetaminophen Tab [Tylenol Tab] 650 mg PO Q4H PRN #30 tablet 05/31/19 06/15/19 Rx Insulin Degludec [Tresiba 35 units SQ DAILY 06/10/19 06/15/19 History Flextouch U-100] Lisinopril [Prinivil] 5 mg PO HS 06/10/19 06/15/19 History Omeprazole [PriLOSEC] 20 mg PO QAM 06/15/19 06/15/19 History Allergies Allergy/AdvReac Type Severity Reaction Status Date / Time No Known Allergies Allergy Verified 06/15/19 12:25 Surgical - Exam Vital Signs Temp Pulse Resp BP Pulse Ox 98.5 F 78 18 144/93 96 06/15/19 09:20 06/15/19 09:20 06/15/19 09:20 06/15/19 09:20 06/15/19 09:20 Results - Labs 06/16/19 07:17 06/16/19 07:17 Abnormal Lab Results - Last 24 Hours (Table) 06/15/19 06/15/19 06/15/19 Range/Units 09:39 09:39 12:15 WBC 14.7 H (3.8-10.6) k/uL Neutrophils # 13.2 H (1.3-7.7) k/uL Lymphocytes # 0.8 L (1.0-4.8) k/uL Sodium 134 L (137-145) mmol/L Chloride 94 L (98-107) mmol/L BUN 40 H (9-20) mg/dL Creatinine 1.91 H (0.66-1.25) mg/dL Glucose 236 H (74-99) mg/dL POC Glucose (mg/dL) (75-99) mg/dL Calcium (8.4-10.2) mg/dL ALT 51 H (4-49) U/L Albumin (3.5-5.0) g/dL Amylase 920 H* (30-110) U/L Lipase 9681 H (23-300) U/L Urine Protein 1+ H (Negative) Hyaline Casts 9 H (0-2) /lpf Urine Mucus Rare H (None) /hpf 06/16/19 06/16/19 06/16/19 Range/Units 06:49 07:17 07:17 WBC 22.2 H (3.8-10.6) k/uL Neutrophils # (1.3-7.7) k/uL Lymphocytes # (1.0-4.8) k/uL Sodium (137-145) mmol/L Chloride (98-107) mmol/L BUN 25 H (9-20) mg/dL Creatinine 1.32 H (0.66-1.25) mg/dL Glucose (74-99) mg/dL POC Glucose (mg/dL) 67 L (75-99) mg/dL Calcium 6.5 L (8.4-10.2) mg/dL ALT (4-49) U/L Albumin 3.2 L (3.5-5.0) g/dL Amylase 374 H* (30-110) U/L Lipase 1953 H (23-300) U/L Urine Protein (Negative) Hyaline Casts (0-2) /lpf Urine Mucus (None) /hpf Diabetes panel 06/15/19 06/16/19 Range/Units 09:39 07:17 Sodium 134 L 138 (137-145) mmol/L Potassium 4.8 4.5 (3.5-5.1) mmol/L Chloride 94 L 104 (98-107) mmol/L Carbon Dioxide 25 25 (22-30) mmol/L BUN 40 H 25 H (9-20) mg/dL Creatinine 1.91 H 1.32 H (0.66-1.25) mg/dL Glucose 236 H 81 (74-99) mg/dL Calcium 8.6 6.5 L (8.4-10.2) mg/dL AST 40 35 (17-59) U/L ALT 51 H 33 (4-49) U/L Alkaline Phosphatase 89 79 (38-126) U/L Total Protein 7.3 6.4 (6.3-8.2) g/dL Albumin 4.0 3.2 L (3.5-5.0) g/dL Calcium panel 06/15/19 06/16/19 Range/Units 09:39 07:17 Calcium 8.6 6.5 L (8.4-10.2) mg/dL Albumin 4.0 3.2 L (3.5-5.0) g/dL Pituitary panel 06/15/19 06/16/19 Range/Units 09:39 07:17 Sodium 134 L 138 (137-145) mmol/L Potassium 4.8 4.5 (3.5-5.1) mmol/L Chloride 94 L 104 (98-107) mmol/L Carbon Dioxide 25 25 (22-30) mmol/L BUN 40 H 25 H (9-20) mg/dL Creatinine 1.91 H 1.32 H (0.66-1.25) mg/dL Glucose 236 H 81 (74-99) mg/dL Calcium 8.6 6.5 L (8.4-10.2) mg/dL Adrenal panel 06/15/19 06/16/19 Range/Units 09:39 07:17 Sodium 134 L 138 (137-145) mmol/L Potassium 4.8 4.5 (3.5-5.1) mmol/L Chloride 94 L 104 (98-107) mmol/L Carbon Dioxide 25 25 (22-30) mmol/L BUN 40 H 25 H (9-20) mg/dL Creatinine 1.91 H 1.32 H (0.66-1.25) mg/dL Glucose 236 H 81 (74-99) mg/dL Calcium 8.6 6.5 L (8.4-10.2) mg/dL Total Bilirubin 0.7 0.6 (0.2-1.3) mg/dL AST 40 35 (17-59) U/L ALT 51 H 33 (4-49) U/L Alkaline Phosphatase 89 79 (38-126) U/L Total Protein 7.3 6.4 (6.3-8.2) g/dL Albumin 4.0 3.2 L (3.5-5.0) g/dL <Anika Allen - Last Filed: 06/16/19 17:05> History of Present Illness History of present illness: CT of the abdomen and pelvis independently reviewed with WILBERTO at [facility]. Air bubbles consistent with recent ERCP and open subtotal cholecystectomy stump. Features consistent with pancreatitis. WILBERTO output consistent with 10 mL over 3 days per discussion with the patient. Recommend continue WILBERTO. May have clear liquid diet once cleared by GI. LFTs now normal after the last 3 to 4 weeks. WILBERTO to be discontinued prior to discharge should output remain low. Surgical - Exam Vital Signs Temp Pulse Resp BP Pulse Ox 98.5 F 78 18 144/93 96 06/15/19 09:20 06/15/19 09:20 06/15/19 09:20 06/15/19 09:20 06/15/19 09:20 Results - Labs 06/16/19 07:17 06/16/19 07:17 Abnormal Lab Results - Last 24 Hours (Table) 06/16/19 06/16/19 06/16/19 Range/Units 06:49 07:17 07:17 WBC 22.2 H (3.8-10.6) k/uL BUN 25 H (9-20) mg/dL Creatinine 1.32 H (0.66-1.25) mg/dL POC Glucose (mg/dL) 67 L (75-99) mg/dL Calcium 6.5 L (8.4-10.2) mg/dL Albumin 3.2 L (3.5-5.0) g/dL Amylase 374 H* (30-110) U/L Lipase 1953 H (23-300) U/L 06/16/19 Range/Units 16:20 WBC (3.8-10.6) k/uL BUN (9-20) mg/dL Creatinine (0.66-1.25) mg/dL POC Glucose (mg/dL) 110 H (75-99) mg/dL Calcium (8.4-10.2) mg/dL Albumin (3.5-5.0) g/dL Amylase (30-110) U/L Lipase (23-300) U/L Diabetes panel 06/16/19 Range/Units 07:17 Sodium 138 (137-145) mmol/L Potassium 4.5 (3.5-5.1) mmol/L Chloride 104 (98-107) mmol/L Carbon Dioxide 25 (22-30) mmol/L BUN 25 H (9-20) mg/dL Creatinine 1.32 H (0.66-1.25) mg/dL Glucose 81 (74-99) mg/dL Calcium 6.5 L (8.4-10.2) mg/dL AST 35 (17-59) U/L ALT 33 (4-49) U/L Alkaline Phosphatase 79 (38-126) U/L Total Protein 6.4 (6.3-8.2) g/dL Albumin 3.2 L (3.5-5.0) g/dL Calcium panel 06/16/19 Range/Units 07:17 Calcium 6.5 L (8.4-10.2) mg/dL Albumin 3.2 L (3.5-5.0) g/dL Pituitary panel 06/16/19 Range/Units 07:17 Sodium 138 (137-145) mmol/L Potassium 4.5 (3.5-5.1) mmol/L Chloride 104 (98-107) mmol/L Carbon Dioxide 25 (22-30) mmol/L BUN 25 H (9-20) mg/dL Creatinine 1.32 H (0.66-1.25) mg/dL Glucose 81 (74-99) mg/dL Calcium 6.5 L (8.4-10.2) mg/dL Adrenal panel 06/16/19 Range/Units 07:17 Sodium 138 (137-145) mmol/L Potassium 4.5 (3.5-5.1) mmol/L Chloride 104 (98-107) mmol/L Carbon Dioxide 25 (22-30) mmol/L BUN 25 H (9-20) mg/dL Creatinine 1.32 H (0.66-1.25) mg/dL Glucose 81 (74-99) mg/dL Calcium 6.5 L (8.4-10.2) mg/dL Total Bilirubin 0.6 (0.2-1.3) mg/dL AST 35 (17-59) U/L ALT 33 (4-49) U/L Alkaline Phosphatase 79 (38-126) U/L Total Protein 6.4 (6.3-8.2) g/dL Albumin 3.2 L (3.5-5.0) g/dL
[2019-06-16 11:34] LABS: Glucose,Whole Blood 76 mg/dL (75-99)
--- NOTE | 2019-06-16 15:07 | P.PN ---
Progress Note - Text Progress Note Date: 06/16/19 Chief Complaint: Abdominal pain History of presenting complaint: This is a pleasant 74-year-old patient of Dr. Chen. Patient was here in the hospital from May 22 through May 30. Admitted with pneumonia and acute cholecystitis. On May 25 underwent cholecystectomy. With a WILBERTO drain. Had some bile leak. Patient seen by Dr. Ellington from general surgery. Sent over the WILBERTO drain. Yesterday in June 13 patient underwent ERCP with biliary sphincterotomy and a CBD stent placement with Dr. Kat Goldman. Patient went home and started having increasing abdominal pain. Some nausea. No fever no chills. Return to the ER. Daughter the bedside. Patient diagnosed of acute pancreatitis. Dr. Kat Goldman was consulted. Admitted with-post ERCP acute pancreatitis. Has a biliary drain. Acute kidney injury prerenal. Today-is better. Less nausea. Decreased abnormal pain. Review of systems: Was done for constitutional, cardiovascular, GI, pulmonary. relevant finding as above Active Medications Acetaminophen (Tylenol Tab) 650 mg PO Q6HR PRN PRN Reason: Mild Pain or Fever > 100.5 Albuterol/Ipratropium (Duoneb 0.5 Mg-3 Mg/3 Ml Soln) 3 ml INHALATION RT-QID PRN PRN Reason: Shortness Of Breath Or Wheezing Atorvastatin Calcium (Lipitor) 10 mg PO HS [facility] Last Admin: 06/15/19 21:28 Dose: 10 mg Documented by: Enoxaparin Sodium (Lovenox) 40 mg SQ DAILY [facility] Last Admin: 06/16/19 07:52 Dose: 40 mg Documented by: Escitalopram Oxalate (Lexapro) 10 mg PO DAILY [facility] Last Admin: 06/16/19 07:44 Dose: Not Given Documented by: Hydromorphone HCl (Dilaudid) 1 mg IVP Q3HR PRN PRN Reason: Severe Pain Last Admin: 06/16/19 14:12 Dose: 1 mg Documented by: Sodium Chloride (Saline 0.9%) 1,000 mls @ 100 mls/hr IV .Q10H [facility] Last Admin: 06/16/19 14:13 Dose: 100 mls/hr Documented by: Piperacillin Sod/Tazobactam (Sod 3.375 gm/ Sodium Chloride) 100 mls @ 25 mls/hr IVPB Q8HR [facility] Last Admin: 06/16/19 07:51 Dose: 25 mls/hr Documented by: Insulin Aspart (Novolog) 0 unit SQ ACHS [facility]; Protocol Last Admin: 06/16/19 11:36 Dose: Not Given Documented by: Insulin Detemir (Levemir) 25 unit SQ DAILY [facility] Last Admin: 06/16/19 07:31 Dose: Not Given Documented by: Levothyroxine Sodium (Synthroid) 75 mcg PO DAILY@0630 [facility] Last Admin: 06/16/19 05:20 Dose: 75 mcg Documented by: Naloxone HCl (Narcan) 0.2 mg IV Q2M PRN PRN Reason: Opioid Reversal Ondansetron HCl (Zofran) 4 mg IVP Q8HR PRN PRN Reason: Nausea And Vomiting Pantoprazole Sodium (Protonix) 40 mg IV DAILY [facility] Last Admin: 06/16/19 07:52 Dose: 40 mg Documented by: Tamsulosin HCl (Flomax) 0.4 mg PO HS [facility] Last Admin: 06/15/19 21:28 Dose: 0.4 mg Documented by: Physical examination: VITAL SIGNS: 97.7, 92, 16, 122/79, 91% on room air GENERAL: BMI 28.2, laying in bed, more-comfortable. EYES: Pupils equal. Conjunctiva normal. HEENT: External appearance of nose and ears normal, oral cavity grossly normal. NECK: JVD not raised; masses not palpable. HEART: First and second heart sounds are normal; no edema. LUNGS: Respiratory rate normal, lungs clear. ABDOMEN: Soft, minimal epigastric tenderness with no guarding or rigidity, liver spleen not palpable, no masses palpable. Biliary drain PSYCH: [Alert and oriented x3; mood and affect a bit anxious. INVESTIGATIONS, reviewed in the clinical context: White count 22.2 hemoglobin 15 bun 25 creatinine 1.32 amylase 374 lipase 1953 Previous tracing White count 14.7 hemoglobin 15.5 platelets 333 potassium 4.8 bun 40 creatinine 1.91 amylase 920 lipase 9681 EKG tracing personally reviewed by me-normal sinus rhythm Computed tomography scan of the abdomen-extensive abdominal attenuation in the peripancreatic region. Previous testing: Bun 23 creatinine 1.06 Assessment: -Acute post-ERCP pancreatitis-slowly improving -May 25 patient underwent acute cholecystectomy followed by biliary leak and went home with a WILBERTO drain, followed by a ERCP with CBD stent placement on June [address] Kat Goldman. -Acute renal failure possibly prerenal from fluid loss, slowly improving -Diabetes mellitus type 2, -BPH -Hyperlipidemia -Hypothyroid -Depression otherwise specified Plan: Continue the IV fluids. Repeat labs in the morning. Started on clear liquid diet. On IV Zosyn per Dr. Kat Goldman. Encouraged to be out of bed.
[2019-06-16 16:21] LABS: Glucose,Whole Blood 110 mg/dL (75-99)
[2019-06-16] MEDS ORDERED: LACTULOSE 20 GM/30 ML CUP PO ONE (20:00)
[2019-06-16] MEDS: ATORVASTATIN 10 MG TAB PO SCH (20:06)
[2019-06-16] MEDS: TAMSULOSIN 0.4 MG CAP.ER.24H PO SCH (20:06)
[2019-06-16 20:13] LABS: Glucose,Whole Blood 139 mg/dL (75-99)
--- NOTE | 2019-06-16 20:29 | PN ---
PROGRESS NOTE DATE OF DICTATION: 06/16/2019 This patient is a 74-year-old pleasant white male admitted to the hospital with post ERCP pancreatitis yesterday when he presented with severe epigastric pain associated with nausea, vomiting. He had an ERCP with CBD stent placement for post- cholecystectomy bile leak 2 days ago. The patient is doing better today. His abdominal pain is improving. No nausea or vomiting. On ice chips and does not have a good appetite. He was started on clear liquids but not eager to eat at this time. He reports no fever, chills or night sweats. PHYSICAL EXAMINATION: He appears comfortable. Blood pressure 130/70, pulse rate 85, temperature 97.9. HEENT examination unremarkable. Conjunctivae pink. Sclerae anicteric. Oral cavity no lesions. NECK: No JVD or lymph node enlargement. CHEST: Clear to auscultation. HEART: Regular rate and rhythm. ABDOMEN: Soft. It was slightly distended. There was some diffuse tenderness, mostly in the epigastric and left upper quadrant area. Rest of the abdomen was benign. EXTREMITIES: No pedal edema. SKIN: No rashes. NEUROLOGIC: Alert and oriented x3. No focal deficits. LABS: WBC 22.2, hemoglobin 15, platelets normal. BUN is down to 25, creatinine is 1.3. Lipase is down to 1953. Amylase is 378. IMPRESSION: 1. Acute post-ERCP pancreatitis with improving amylase and lipase. Patient was started on clear liquid diet. Still continues to have persistent epigastric pain, though improving. 2. Leukocytosis, probably related to acute pancreatitis; on broad-spectrum antibiotics with Zosyn. 3. Post-cholecystectomy bile leak with a WILBERTO drain in place. No significant drainage noted in the WILBERTO drain since the ERCP was performed. RECOMMENDATIONS: 1. Continue broad-spectrum antibiotics. 2. Continue with clear liquid diet. 3. Pain medications as needed. 4. Repeat labs in the morning. 5. Continue with aggressive IV hydration, and we will follow with you. Thank you for this consultation. MMODL / IJN: [id number] /
[2019-06-17] MEDS: LEVOTHYROXINE 75 MCG TAB PO SCH (05:14)
[2019-06-17] MEDS: HYDROmorphone 1 MG/ML 1 ML SYRINGE IVP PRN ×4 (05:16→22:09)
[2019-06-17 07:01] LABS: Glucose,Whole Blood 77 mg/dL (75-99)
[2019-06-17] MEDS: INSULIN ASPART (NovoLOG) 100 UNIT/ML VIAL SQ SCH ×4 (07:23→20:59)
[2019-06-17 07:54] LABS: Basophils % (A) 0 %; Eosinophils # (A) 0.1 k/uL (0-0.7); Eosinophils % (A) 0 %; HCT 38.1 % (39.0-53.0); HGB 12.6 gm/dL (13.0-17.5); Lymphocytes # (A) 0.6 k/uL (1.0-4.8); Lymphocytes % (A) 4 %; MCH 30.8 pg (25.0-35.0); MCV 93.3 fL (80.0-100.0); Mean Platelet Volume 8.4; Monocytes # (A) 0.6 k/uL (0-1.0); Monocytes % (A) 4 %; Neutrophils # (A) 14.9 k/uL (1.3-7.7); Neutrophils % (A) 92 %; Platelet Count 229 k/uL (150-450); RBC 4.09 m/uL (4.30-5.90); RDW 13.9 % (11.5-15.5); WBC 16.3 k/uL (3.8-10.6)
[2019-06-17 08:08] LABS: Albumin 2.8 g/dL (3.5-5.0); Potassium 3.7 mmol/L (3.5-5.1); Total Bilirubin 0.6 mg/dL (0.2-1.3); Total Protein 5.8 g/dL (6.3-8.2)
[2019-06-17 08:33] LABS: Calcium 5.9 mg/dL (8.4-10.2)
[2019-06-17] MEDS ORDERED: BISACODYL 10 MG SUPP RECTAL STA (09:01)
[2019-06-17] MEDS: INSULIN DETEMIR (LEVEMIR) 100 UNIT/ML SYR SQ SCH (09:05)
[2019-06-17] MEDS: ESCITALOPRAM 10 MG TAB PO SCH (09:05)
[2019-06-17] MEDS: PIPERACILLIN-TAZOBACTAM 3.375 GM in SODIUM CHLORIDE 0.9% 100 ML IVPB SCH ×3 (09:14→23:46)
[2019-06-17] MEDS: ENOXAPARIN 40 MG/0.4 ML SYRINGE SQ SCH (09:14)
[2019-06-17] MEDS: SODIUM CHLORIDE 0.9% 1,000 ML IV SCH ×2 (09:14→20:00)
--- NOTE | 2019-06-17 10:40 | XR ---
EXAMINATION TYPE: XR abdomen acute w cxr DATE OF EXAM: 06/17/2019 COMPARISON: NONE HISTORY: Pain TECHNIQUE: Single view of the chest and 2 views of the abdomen are submitted. FINDINGS: Single view of the chest demonstrates left lower lobe infiltrate and small effusion. Correlate for pn eum[place]. There is no evidence for pneumoperitoneum. There appears to be a biliary stent as well as a catheter overlying the liver. Correlate clinically. There are dilated loops of small bowel measuring up to 4.5 cm. There is also distention of the colon. The findings could reflect ileus. Obstruction difficult to exclude. Continued follow-up advised. No unusual calcifications. IMPRESSION: 1. Nonspecific bowel gas pattern as discussed.
--- NOTE | 2019-06-17 11:07 | P.PN ---
<WrenKatlyn Evangelina - Last Filed: 06/17/19 11:04> Subjective Progress Note Date: 06/17/19 CHIEF COMPLAINT: Acute pancreatitis HISTORY OF PRESENT ILLNESS: Patient examined at the bedside with Dr. Allen. Patient complains of increased abdominal pain today. Reports gas pains. He denies passing any flatus today. Denies nausea or vomiting. WILBERTO with bile output. 10cc emptied at the bedside. WBC down to 16.3 today. Amylase 123. Lipase 488. Vital signs are stable. He is afebrile. PHYSICAL EXAM: VITAL SIGNS: Reviewed GENERAL: Well-developed in no acute distress. Appears nontoxic. HEENT: No sclera icterus. Extraocular movements grossly intact. Moist buccal mucosa. Head is atraumatic, normocephalic. Hears conversational speech. No nasal drainage. NECK: Supple without lymphadenopathy. CHEST: Non-labored respirations and equal bilateral excursions. CARDIOVASCULAR: Regular rate with regular rhythm. Palpable 2+ radial pulses. ABDOMEN: Soft. Distended. Tender with palpation. Tympanic. Surgical incision healing well without erythema or drainage. WILBERTO drain noted with bile drainage. MUSCULOSKELETAL: No clubbing or cyanosis. NEUROLOGIC: No focal or lateralizing signs. Cranial nerves II through XII grossly intact. PSYCH: Appropriate affect. Alert and oriented to person, place and time. SKIN: Well perfused. Good skin turgor. ASSESSMENT: 1. ERCP induced pancreatitis 2. History of recent subtotal cholecystectomy secondary to gangrenous purulent cholecystitis with cystic duct obstruction secondary to gallstones 3. Expected post operative bile leak 4. Air within gallbladder fossa, expected secondary to WILBERTO drain 5. Leukocytosis 6. Suspected ileus PLAN: -GI on consult. Appreciate recommendations and input -Continue to monitor pancreatic enzymes. Repeat in a.m. -Continue antibiotics. Repeat CBC in a.m. -Continue WILBERTO drain. WILBERTO drain will likely be removed prior to patient being discharged home -Downgrade diet to ice chips and popsicles only -Dulcolax suppository 1 -Obtain abdominal x-ray. Patient may require NG tube decompression for likely reactive ileus secondary to pancreatitis Nurse practitioner note has been reviewed by physician. Signing provider agrees with the documented findings, assessment, and plan of care. Objective - Vital Signs Vital signs: Vital Signs Temp 97.6 F 06/17/19 07:00 Pulse 92 06/17/19 07:00 Resp 17 06/17/19 07:00 BP 138/78 06/17/19 07:00 Pulse Ox 93 L 06/17/19 07:00 Intake & Output 06/16/19 06/17/19 06/17/19 18:59 06:59 18:59 Intake Total 480 Output Total 210 370 175 Balance -210 110 -175 Intake: Oral 480 Output: Drainage 10 20 Right Abdomen 10 20 Urine 200 350 175 Other: Voiding Method Toilet Urinal # Voids 1 1 - Labs CBC & Chem 7: 06/17/19 07:34 06/17/19 07:34 Labs: Abnormal Lab Results - Last 24 Hours (Table) 06/16/19 06/16/19 06/17/19 Range/Units 16:20 20:12 07:34 WBC 16.3 H (3.8-10.6) k/uL RBC 4.09 L (4.30-5.90) m/uL Hgb 12.6 L (13.0-17.5) gm/dL Hct 38.1 L (39.0-53.0) % Neutrophils # 14.9 H (1.3-7.7) k/uL Lymphocytes # 0.6 L (1.0-4.8) k/uL Glucose (74-99) mg/dL POC Glucose (mg/dL) 110 H 139 H (75-99) mg/dL Calcium (8.4-10.2) mg/dL Total Protein (6.3-8.2) g/dL Albumin (3.5-5.0) g/dL Amylase (30-110) U/L Lipase (23-300) U/L 06/17/19 Range/Units 07:34 WBC (3.8-10.6) k/uL RBC (4.30-5.90) m/uL Hgb (13.0-17.5) gm/dL Hct (39.0-53.0) % Neutrophils # (1.3-7.7) k/uL Lymphocytes # (1.0-4.8) k/uL Glucose 110 H (74-99) mg/dL POC Glucose (mg/dL) (75-99) mg/dL Calcium 5.9 L* (8.4-10.2) mg/dL Total Protein 5.8 L (6.3-8.2) g/dL Albumin 2.8 L (3.5-5.0) g/dL Amylase 123 H (30-110) U/L Lipase 488 H (23-300) U/L <Anika Allen N - Last Filed: 06/17/19 12:56> Subjective Patient seen and evaluated with above. I personally emptied his WILBERTO which is bilious and is to be expected. WILBERTO drain stripped with 10 mL in the past 24 hours. Patient and nurse clarifies that his WILBERTO was not emptied by his nurse in the last 24 hours as a result, documentation is only 10 mL from his last evaluation by me 24 hours ago. He is more distended than yesterday. He reports generalized abdominal ache. Reports inability to pass flatus or have bowel movement. He is requesting something for bowel movements as his last problem was over 3 days ago. ABDOMEN: Tympanic to percussion and distended. No peritonitis. Recommend discontinue by mouth diet. May have ice chips Popsicles only. We'll get stat abdominal x-ray. Placement of NG tube may be possible for severe ileus. I personally spoke to the patient's daughter over the phone at 0930 hours per patient request regarding his overall care. She was informed that he will need to continue his WILBERTO drain. She is also informed that he has an ileus from his pancreatitis. He will need bowel rest. Hospitalization at least for 1 week from the time of admission also reviewed. Placement of nasogastric tube also reviewed with additional x-rays of his abdomen Objective - Vital Signs Vital signs: Vital Signs Temp 97.6 F 06/17/19 07:00 Pulse 92 06/17/19 07:00 Resp 17 06/17/19 07:00 BP 138/78 06/17/19 07:00 Pulse Ox 93 L 06/17/19 07:00 Intake & Output 06/16/19 06/17/19 06/17/19 18:59 06:59 18:59 Intake Total 480 Output Total 210 370 175 Balance -210 110 -175 Intake: Oral 480 Output: Drainage 10 20 Right Abdomen 10 20 Urine 200 350 175 Other: Voiding Method Toilet Toilet Urinal Urinal # Voids 1 1 - Labs CBC & Chem 7: 06/17/19 07:34 06/17/19 07:34 Labs: Abnormal Lab Results - Last 24 Hours (Table) 06/16/19 06/16/19 06/17/19 Range/Units 16:20 20:12 07:34 WBC 16.3 H (3.8-10.6) k/uL RBC 4.09 L (4.30-5.90) m/uL Hgb 12.6 L (13.0-17.5) gm/dL Hct 38.1 L (39.0-53.0) % Neutrophils # 14.9 H (1.3-7.7) k/uL Lymphocytes # 0.6 L (1.0-4.8) k/uL Glucose (74-99) mg/dL POC Glucose (mg/dL) 110 H 139 H (75-99) mg/dL Calcium (8.4-10.2) mg/dL Total Protein (6.3-8.2) g/dL Albumin (3.5-5.0) g/dL Amylase (30-110) U/L Lipase (23-300) U/L 06/17/19 06/17/19 Range/Units 07:34 11:18 WBC (3.8-10.6) k/uL RBC (4.30-5.90) m/uL Hgb (13.0-17.5) gm/dL Hct (39.0-53.0) % Neutrophils # (1.3-7.7) k/uL Lymphocytes # (1.0-4.8) k/uL Glucose 110 H (74-99) mg/dL POC Glucose (mg/dL) 116 H (75-99) mg/dL Calcium 5.9 L* (8.4-10.2) mg/dL Total Protein 5.8 L (6.3-8.2) g/dL Albumin 2.8 L (3.5-5.0) g/dL Amylase 123 H (30-110) U/L Lipase 488 H (23-300) U/L
[2019-06-17 11:19] LABS: Glucose,Whole Blood 116 mg/dL (75-99)
[2019-06-17] MEDS ORDERED: MVI, ADULT NO.4 WITH VIT K 10 ML, TRACE (CONC-1ML/DOSE) 1 ML in AMINO ACID 4.25%-D10W+L... IV SCH ×3 (15:00)
[2019-06-17] MEDS: FAT EMULSION 20% 250 ML in EMPTY BAG 1 BAG IV SCH (15:28)
[2019-06-17 15:33] LABS: Magnesium 1.9 mg/dL (1.6-2.3); Phosphorus 1.2 mg/dL (2.5-4.5)
[2019-06-17 16:42] LABS: Glucose,Whole Blood 90 mg/dL (75-99)
--- NOTE | 2019-06-17 17:14 | PN ---
PROGRESS NOTE DATE OF SERVICE: 06/17/2019 Patient is a 74-year-old pleasant white male admitted to the hospital with acute post- ERCP pancreatitis. He is gradually improving. He complains of abdominal distention and some abdominal discomfort, but overall much better. No nausea or vomiting. On clear liquid diet. PHYSICAL EXAMINATION: He appears comfortable, in no apparent distress. Blood pressure 116/74, pulse rate 60, temperature 98.1. HEENT: Examination unremarkable, conjunctivae are pink, sclerae nonicteric, oral cavity no lesions. NECK: No JVD or lymph node enlargement. CHEST: Clear to auscultation. HEART: Regular rate and rhythm. ABDOMEN: Soft, it was slightly distended. There was mild diffuse tenderness in the epigastric area as well as in the left upper quadrant area. EXTREMITIES: No pedal edema. NEUROLOGIC: Alert and oriented x3. No focal deficits. LABS: From today WBC 16.3, hemoglobin 12.6, platelets normal. Amylase is 133, lipase is 488. ALT, AST, T-bilirubin and alkaline phosphatase are within normal limits. Calcium is down to.9. IMPRESSION: 1. Acute post-ERCP pancreatitis which was done for bile leak 3 days ago, presently on antibiotics. Symptoms are gradually improving. 2. Status post gallbladder surgery 3 weeks ago for acute gangrenous cholecystitis, followed by a bile leak. Presently has a WILBERTO drain that stopped drainage completely. 3. Hypercalcemia secondary to recent episode of acute pancreatitis. RECOMMENDATIONS: 1. Continue with clear liquid diet. 2. Pain medications as needed. 3. Repeat labs in the morning. 4. Continue with broad-spectrum antibiotics. 5. Will follow with you closely. Thank you for this consultation. MMODL / IJN: [id number] /
--- NOTE | 2019-06-17 17:29 | P.PN ---
Progress Note - Text Progress Note Date: 06/17/19 Chief Complaint: Abdominal pain History of presenting complaint: This is a pleasant 74-year-old patient of Dr. Chen. Patient was here in the hospital from May 22 through May 30. Admitted with pneumonia and acute cholecystitis. On May 25 underwent cholecystectomy. With a WILBERTO drain. Had some bile leak. Patient seen by Dr. Ellington from general surgery. Sent over the WILBERTO drain. Yesterday in June 13 patient underwent ERCP with biliary sphincterotomy and a CBD stent placement with Dr. Kat Goldman. Patient went home and started having increasing abdominal pain. Some nausea. No fever no chills. Return to the ER. Daughter the bedside. Patient diagnosed of acute pancreatitis. Dr. Kat Goldman was consulted. Admitted with-post ERCP acute pancreatitis. Has a biliary drain. Acute kidney injury prerenal. Today-abdomen distended. Slight nausea. Biliary drain in place. Abdominal x- ray showing not accurately also small bowel 4.5 cm. Also distention of the colon. Review of systems: Was done for constitutional, cardiovascular, GI, pulmonary. relevant finding as above Active Medications Acetaminophen (Tylenol Tab) 650 mg PO Q6HR PRN PRN Reason: Mild Pain or Fever > 100.5 Last Admin: 06/17/19 03:44 Dose: 650 mg Documented by: Albuterol/Ipratropium (Duoneb 0.5 Mg-3 Mg/3 Ml Soln) 3 ml INHALATION RT-QID PRN PRN Reason: Shortness Of Breath Or Wheezing Atorvastatin Calcium (Lipitor) 10 mg PO HS [facility] Last Admin: 06/16/19 20:06 Dose: 10 mg Documented by: Enoxaparin Sodium (Lovenox) 40 mg SQ DAILY [facility] Last Admin: 06/17/19 09:14 Dose: 40 mg Documented by: Escitalopram Oxalate (Lexapro) 10 mg PO DAILY [facility] Last Admin: 06/17/19 09:05 Dose: Not Given Documented by: Hydromorphone HCl (Dilaudid) 1 mg IVP Q3HR PRN PRN Reason: Severe Pain Last Admin: 06/17/19 14:07 Dose: 1 mg Documented by: Sodium Chloride (Saline 0.9%) 1,000 mls @ 100 mls/hr IV .Q10H [facility] Last Admin: 06/17/19 09:14 Dose: 100 mls/hr Documented by: Piperacillin Sod/Tazobactam (Sod 3.375 gm/ Sodium Chloride) 100 mls @ 25 mls/hr IVPB Q8HR [facility] Last Admin: 06/17/19 14:24 Dose: 25 mls/hr Documented by: Parenteral Vitamin Supplement 10 ml/ Chromium/Copper/Manganese/Seleni/Zn 1 ml/Amino Ac/Electrol/Dextrose/Calcium 1,011 mls @ 50 mls/hr IV .[id number] [facility]; Protocol Stop: 06/18/19 05:00 Last Admin: 06/17/19 15:28 Dose: Not Given Documented by: Parenteral Vitamin Supplement 10 ml/ Chromium/Copper/Manganese/Seleni/Zn 1 ml/ Amino Ac/Electrol/Dextrose/Calcium 1,011 mls @ 96 mls/hr IV .BY DURATION [facility] Amino Ac/Electrol/Dextrose/Calcium (Clinimix E 4.25%-D10% Solution) 1,000 mls @ 96 mls/hr IV .BY DURATION [facility] Fat Emulsion Intravenous 250 (ml/ IV Solution) 250 mls @ 21 mls/hr IV DAILY@1500 [facility] Last Admin: 06/17/19 15:28 Dose: Not Given Documented by: Insulin Aspart (Novolog) 0 unit SQ ACHS [facility]; Protocol Last Admin: 06/17/19 16:47 Dose: Not Given Documented by: Insulin Detemir (Levemir) 25 unit SQ DAILY [facility] Last Admin: 06/17/19 09:05 Dose: Not Given Documented by: Levothyroxine Sodium (Synthroid) 75 mcg PO DAILY@0630 [facility] Last Admin: 06/17/19 05:14 Dose: 75 mcg Documented by: Naloxone HCl (Narcan) 0.2 mg IV Q2M PRN PRN Reason: Opioid Reversal Ondansetron HCl (Zofran) 4 mg IVP Q8HR PRN PRN Reason: Nausea And Vomiting Tamsulosin HCl (Flomax) 0.4 mg PO HS [facility] Last Admin: 06/16/19 20:06 Dose: 0.4 mg Documented by: Physical examination: VITAL SIGNS: 97.6, 92, 17, 138/78, 93% room air GENERAL: Laying in bed, but tired EYES: Pupils equal. Conjunctiva normal. HEENT: External appearance of nose and ears normal, oral cavity grossly normal. NECK: JVD not raised; masses not palpable. HEART: First and second heart sounds are normal; no edema. LUNGS: Respiratory rate normal, lungs clear. ABDOMEN: Soft, distended, liver spleen not palpable, no masses palpable. Biliary drain PSYCH: [Alert and oriented x3; mood and affect a bit anxious. INVESTIGATIONS, reviewed in the clinical context: White count 16.3 hemoglobin 12.6 potassium 3.7 creatinine 1.04 amylase 123 lipase 488 Abdominal [id number] of small bowel and colon Previous tracing White count 14.7 hemoglobin 15.5 platelets 333 potassium 4.8 bun 40 creatinine 1.91 amylase 920 lipase 9681 EKG tracing personally reviewed by me-normal sinus rhythm Computed tomography scan of the abdomen-extensive abdominal attenuation in the peripancreatic region. Previous testing: Bun 23 creatinine 1.06 Assessment: -Acute post-ERCP pancreatitis- improving -Acute ileus-new onset -May 25 patient underwent acute cholecystectomy followed by biliary leak and went home with a WILBERTO drain, followed by a ERCP with CBD stent placement on June [address] Kat Goldman. -Acute renal failure possibly prerenal from fluid loss, slowly improving -Diabetes mellitus type 2, -BPH -Hyperlipidemia -Hypothyroid -Depression otherwise specified Plan: Continue the IV fluids. Made nothing by mouth. NG tube. To suction discussed with patient. TPN and lipids being started. On IV Zosyn.
--- NOTE | 2019-06-17 18:32 | XR ---
EXAMINATION TYPE: XR chest 1V portable DATE OF EXAM: 06/17/2019 COMPARISON: 05/24/2019 INDICATION: NG tube placement TECHNIQUE: Single frontal view of the chest is obtained. FINDINGS: The heart size is normal. The pulmonary vasculature is normal. Minimal infiltrate is at the left base. NG tube is present to the distal esophagus. This may have some minimal tip within the left upper quad rant of the abdomen. This is very difficult to identify due to degree of penetration. IMPRESSION: 1. NG tube tip likely in the distal esophagus gastroesophageal junction region. This could be confirm ed with an abdomen study. 2. Minimal infiltrate retrocardiac left base.
[2019-06-17 19:55] LABS: Glucose,Whole Blood 85 mg/dL (75-99)
[2019-06-17] MEDS: TAMSULOSIN 0.4 MG CAP.ER.24H PO SCH (20:00)
[2019-06-17] MEDS: ATORVASTATIN 10 MG TAB PO SCH (20:00)
--- NOTE | 2019-06-17 22:37 | XR ---
EXAMINATION TYPE: XR chest 1V portable DATE OF EXAM: 06/17/2019 COMPARISON: Today HISTORY: Check tube placement There is nasogastric tube that has the tip near the gastroesophageal junction. There is blunting left costophrenic angle. There is no heart failure. Heart size is normal. There is also slight blunting r ight costophrenic angle. IMPRESSION: Nasogastric tube is in the distal esophagus or at the gastroesophageal junction. There is pleural fluid and reaction at the lung bases unchanged compared to exam 4 hours ago.
[2019-06-18] MEDS: HYDROmorphone 1 MG/ML 1 ML SYRINGE IVP PRN ×2 (01:09→04:36)
[2019-06-18 04:35] LABS: Glucose,Whole Blood 68 mg/dL (75-99)
[2019-06-18] MEDS: SODIUM CHLORIDE 0.9% 1,000 ML IV SCH ×3 (04:36→23:32)
[2019-06-18] MEDS: LEVOTHYROXINE 75 MCG TAB PO SCH (05:36)
[2019-06-18 06:44] LABS: Glucose,Whole Blood 63 mg/dL (75-99)
[2019-06-18 07:22] LABS: Glucose,Whole Blood 66 mg/dL (75-99)
[2019-06-18] MEDS ORDERED: 1: MVI, ADULT NO.4 WITH VIT K 10 ML, TRACE (CONC-1ML/DOSE) 1 ML in AMINO ACID 4.25%-D10W IV SCH ×3 (08:00)
[2019-06-18 08:39] LABS: Basophils % (A) 0 %; Eosinophils % (A) 0 %; HCT 35.3 % (39.0-53.0); HGB 11.6 gm/dL (13.0-17.5); Lymphocytes # (A) 0.5 k/uL (1.0-4.8); Lymphocytes % (A) 4 %; MCH 30.3 pg (25.0-35.0); MCHC 32.7 g/dL (31.0-37.0); MCV 92.5 fL (80.0-100.0); Monocytes # (A) 0.5 k/uL (0-1.0); Monocytes % (A) 4 %; Neutrophils # (A) 11.3 k/uL (1.3-7.7); Neutrophils % (A) 90 %; Platelet Count 224 k/uL (150-450); RBC 3.81 m/uL (4.30-5.90); WBC 12.5 k/uL (3.8-10.6)
[2019-06-18 08:50] LABS: ALT 44 U/L (4-49); AST 62 U/L (17-59); African American GFR (CKD) >90 (>60 ml/min/1.73 sqM); Albumin 2.5 g/dL (3.5-5.0); Alkaline Phosphatase 87 U/L (38-126); Amylase <30 U/L (30-110); Anion Gap 6 mmol/L; Blood Urea Nitrogen 12 mg/dL (9-20); Carbon Dioxide 26 mmol/L (22-30); Chloride 107 mmol/L (98-107); Glucose 74 mg/dL (74-99); Non-African American GFR(CKD) 81 (>60 ml/min/1.73 sqM); Phosphorus 1.5 mg/dL (2.5-4.5); Potassium 3.5 mmol/L (3.5-5.1); Sodium 139 mmol/L (137-145); Total Bilirubin 0.6 mg/dL (0.2-1.3); Total Protein 5.1 g/dL (6.3-8.2)
[2019-06-18 08:58] LABS: Calcium 5.9 mg/dL (8.4-10.2)
[2019-06-18] MEDS ORDERED: Phosphorus Replacement Protoco 1 EACH MISC MISCELLANE PRN (09:24)
[2019-06-18 09:54] VITALS: BMI 31.0
[2019-06-18] MEDS: ENOXAPARIN 40 MG/0.4 ML SYRINGE SQ SCH (10:21)
[2019-06-18] MEDS: INSULIN ASPART (NovoLOG) 100 UNIT/ML VIAL SQ SCH ×4 (10:21→23:32)
[2019-06-18] MEDS: INSULIN DETEMIR (LEVEMIR) 100 UNIT/ML SYR SQ SCH (10:22)
[2019-06-18] MEDS: ESCITALOPRAM 10 MG TAB PO SCH ×2 (10:22→19:22)
[2019-06-18] MEDS: POTASSIUM PHOSPHATE 10 MMOL in SODIUM CHLORIDE 0.9% 100 ML IV SCH ×4 (10:25→21:33)
[2019-06-18] MEDS: CALCIUM GLUCONATE 2 GM in SODIUM CHLORIDE 0.9% 100 ML IVPB ONE ×2 (10:26→14:13)
--- NOTE | 2019-06-18 10:26 | XR ---
EXAMINATION TYPE: XR abdomen acute w cxr DATE OF EXAM: 06/18/2019 COMPARISON: Prior exam 06/17/2019 HISTORY: NG tube placement, ileus TECHNIQUE: Supine, upright, and left side down lateral decubitus views of the abdomen are obtained. FINDINGS: There is an NG tube present, distal tip is overlying the region of the gastroesophageal junction, lynn e-port is likely within the distal thoracic esophagus. Bibasilar increased density, blunting the cost ophrenic angles suggestive of pleural effusions with associated atelectasis, correlate to exclude pne umonia, eventration of right hemidiaphragm again noted. There is a drain in the right upper quadrant. Biliary stent is also present in the right upper quadrant. Large air-fluid level, distended loop of colon suspected in the right abdomen which shows some probable displacement of the cecum medially tow ards the midline, some mass effect present on additional bowel loops. No evident pneumoperitoneum. Pr obable vascular calcifications present within the pelvis. IMPRESSION: Findings could represent an ileus, question some cecal displacement medially, obstruction not seen wi th certainty although cecum is distended as described. Postop changes. NG tube as described, distal t ip may not be within the stomach. Probable basilar effusions and associated atelectasis. Follow-up garner ggested.
--- NOTE | 2019-06-18 10:38 | P.PN ---
<Katlyn Wren - Last Filed: 06/18/19 10:38> Subjective Progress Note Date: 06/18/19 CHIEF COMPLAINT: Acute pancreatitis HISTORY OF PRESENT ILLNESS: Patient examined at the bedside with Dr. Allen. Patient reports slight improvement in abdominal distention. His abdomen remains tender. He denies passing flatus. No BM. NG tube was placed yesterday. Patient has had minimal output through NG. XR completed last night reveals NG in distal esophagus. 10cc bile emptied from WILBERTO drain. WBC 12.5. Hemoglobin 11.6. Potassium 3.5. Calcium 5.9. Phosphorus 1.5. Magnesium 2.0. Bilirubin 0.6. AST 62. ALT 44. PHYSICAL EXAM: VITAL SIGNS: Reviewed GENERAL: Well-developed in no acute distress. Appears nontoxic. HEENT: No sclera icterus. Extraocular movements grossly intact. Moist buccal mucosa. Head is atraumatic, normocephalic. Hears conversational speech. No nasal drainage. NECK: Supple without lymphadenopathy. CHEST: Non-labored respirations and equal bilateral excursions. CARDIOVASCULAR: Regular rate with regular rhythm. Palpable 2+ radial pulses. ABDOMEN: Soft. Distended. Tender with palpation. Surgical incision healing well without erythema or drainage. WILBERTO drain noted with bile drainage. NG with minimal bile output. Cannister with 100cc bloody drainage. MUSCULOSKELETAL: No clubbing or cyanosis. NEUROLOGIC: No focal or lateralizing signs. Cranial nerves II through XII grossly intact. PSYCH: Appropriate affect. Alert and oriented to person, place and time. SKIN: Well perfused. Good skin turgor. ASSESSMENT: 1. ERCP induced pancreatitis 2. History of recent subtotal cholecystectomy secondary to gangrenous purulent cholecystitis with cystic duct obstruction secondary to gallstones 3. Expected post operative bile leak 4. Air within gallbladder fossa, expected secondary to WILBERTO drain 5. Leukocytosis 6. Reactive ileus secondary to pancreatitis 7. Hypophosphatemia 8. Hypocalcemia PLAN: -GI on consult. Appreciate recommendations and input -Continue to monitor pancreatic enzymes -Continue antibiotics. Repeat CBC in a.m. -Continue WILBERTO drain -NG tube advanced at the bedside with Dr. Allen. Repeat acute abdomen series -Patient to receive PICC line today -TPN to begin post PICC line insertion -Discontinue maintenance IV fluids once TPN begins -Replace calcium with 2 g calcium gluconate -Replace phosphorus per protocol with K phos -PT/OT on consult. Patient to ambulate QID in his room Nurse practitioner note has been reviewed by physician. Signing provider agrees with the documented findings, assessment, and plan of care. Objective - Vital Signs Vital signs: Vital Signs Temp 97.4 F L 06/18/19 07:00 Pulse 69 06/18/19 07:00 Resp 17 06/18/19 07:00 BP 117/61 06/18/19 07:00 Pulse Ox 91 L 06/18/19 07:00 Intake & Output 06/17/19 06/18/19 06/18/19 18:59 06:59 18:59 Output Total 325 360 10 Balance -325 -360 -10 Weight 89.8 kg 89.8 kg Output: Drainage 10 10 Right Abdomen 10 10 Urine 325 350 Other: Voiding Method Toilet Toilet Urinal Urinal # Voids 1 1 - Labs CBC & Chem 7: 06/18/19 08:04 06/18/19 08:04 Labs: Abnormal Lab Results - Last 24 Hours (Table) 06/17/19 06/17/19 06/18/19 Range/Units 11:18 14:06 04:32 WBC (3.8-10.6) k/uL RBC (4.30-5.90) m/uL Hgb (13.0-17.5) gm/dL Hct (39.0-53.0) % Neutrophils # (1.3-7.7) k/uL Lymphocytes # (1.0-4.8) k/uL POC Glucose (mg/dL) 116 H 68 L (75-99) mg/dL Calcium (8.4-10.2) mg/dL Phosphorus 1.2 L (2.5-4.5) mg/dL AST (17-59) U/L Total Protein (6.3-8.2) g/dL Albumin (3.5-5.0) g/dL Amylase (30-110) U/L 06/18/19 06/18/19 06/18/19 Range/Units 06:43 07:21 08:04 WBC 12.5 H (3.8-10.6) k/uL RBC 3.81 L (4.30-5.90) m/uL Hgb 11.6 L (13.0-17.5) gm/dL Hct 35.3 L (39.0-53.0) % Neutrophils # 11.3 H (1.3-7.7) k/uL Lymphocytes # 0.5 L (1.0-4.8) k/uL POC Glucose (mg/dL) 63 L 66 L (75-99) mg/dL Calcium (8.4-10.2) mg/dL Phosphorus (2.5-4.5) mg/dL AST (17-59) U/L Total Protein (6.3-8.2) g/dL Albumin (3.5-5.0) g/dL Amylase (30-110) U/L 06/18/19 Range/Units 08:04 WBC (3.8-10.6) k/uL RBC (4.30-5.90) m/uL Hgb (13.0-17.5) gm/dL Hct (39.0-53.0) % Neutrophils # (1.3-7.7) k/uL Lymphocytes # (1.0-4.8) k/uL POC Glucose (mg/dL) (75-99) mg/dL Calcium 5.9 L* (8.4-10.2) mg/dL Phosphorus 1.5 L (2.5-4.5) mg/dL AST 62 H (17-59) U/L Total Protein 5.1 L (6.3-8.2) g/dL Albumin 2.5 L (3.5-5.0) g/dL Amylase <30 L (30-110) U/L <Anika Allen - Last Filed: 06/18/19 11:00> Subjective Patient seen and evaluated with above. Abdominal x-ray repeated An independent reviewstill demonstrates nasogastric tube at the distal esophagus despite advancement at least 10 cm. Additionally improvement in diffuse gas pattern of the small bowel with the exception of distended cecum upon repeat abdominal films. Patient's abdomen is less distended. He reports no passage of flatus or eructation. I personally spoke to his over the phone this morning at 1023 regarding his overall care which includes parenteral nutrition otherwise TPN for extended nothing by mouth status. I inquired about the last Time he had a colonoscope which was between 3-5 years ago. Overall patient has moderate ileus secondary to moderate to severe acute pancreatitis. Amylase lipase has improved. Total bilirubin normal. AST mildly elevated. Calcium low and will need calcium supplement. Phosphate is also low will need supplement. Increase output from WILBERTO noted. Will obtain computed tomography scan of the abdomen without oral or IV contrast to follow up on distention of cecum including evaluation for cecal volvulus ADDENDUM: CT of the abdomen Independently reviewed confirms moderates pancreatitis. Distended cecum including colon. Small bowel within normal l imits. Nasogastric tube was at the GE junction within the stomach. WILBERTO drain in good position. Expected bubbles of air at hepatic fossa as is a WILBERTO drain there. I personally discontinued his nasogastric tube. Patient encouraged to walk and pace in the room to help resolve ileus. Avoid Reglan secondary to high risk for tardive dyskinesia. Recommend continued nothing by mouth status. Avoid lact ulose and oral cathartics for constipation Objective - Vital Signs Vital signs: Vital Signs Temp 97.4 F L 06/18/19 07:00 Pulse 69 06/18/19 07:00 Resp 17 06/18/19 07:00 BP 117/61 06/18/19 07:00 Pulse Ox 91 L 06/18/19 07:00 Intake & Output 06/17/19 06/18/19 06/18/19 18:59 06:59 18:59 Output Total 325 360 10 Balance -325 -360 -10 Weight 89.8 kg 89.8 kg Output: Drainage 10 10 Right Abdomen 10 10 Urine 325 350 Other: Voiding Method Toilet Toilet Urinal Urinal # Voids 1 1 - Labs CBC & Chem 7: 06/18/19 08:04 06/18/19 08:04 Labs: Abnormal Lab Results - Last 24 Hours (Table) 06/17/19 06/17/19 06/18/19 Range/Units 11:18 14:06 04:32 WBC (3.8-10.6) k/uL RBC (4.30-5.90) m/uL Hgb (13.0-17.5) gm/dL Hct (39.0-53.0) % Neutrophils # (1.3-7.7) k/uL Lymphocytes # (1.0-4.8) k/uL POC Glucose (mg/dL) 116 H 68 L (75-99) mg/dL Calcium (8.4-10.2) mg/dL Phosphorus 1.2 L (2.5-4.5) mg/dL AST (17-59) U/L Total Protein (6.3-8.2) g/dL Albumin (3.5-5.0) g/dL Amylase (30-110) U/L 06/18/19 06/18/19 06/18/19 Range/Units 06:43 07:21 08:04 WBC 12.5 H (3.8-10.6) k/uL RBC 3.81 L (4.30-5.90) m/uL Hgb 11.6 L (13.0-17.5) gm/dL Hct 35.3 L (39.0-53.0) % Neutrophils # 11.3 H (1.3-7.7) k/uL Lymphocytes # 0.5 L (1.0-4.8) k/uL POC Glucose (mg/dL) 63 L 66 L (75-99) mg/dL Calcium (8.4-10.2) mg/dL Phosphorus (2.5-4.5) mg/dL AST (17-59) U/L Total Protein (6.3-8.2) g/dL Albumin (3.5-5.0) g/dL Amylase (30-110) U/L 06/18/19 Range/Units 08:04 WBC (3.8-10.6) k/uL RBC (4.30-5.90) m/uL Hgb (13.0-17.5) gm/dL Hct (39.0-53.0) % Neutrophils # (1.3-7.7) k/uL Lymphocytes # (1.0-4.8) k/uL POC Glucose (mg/dL) (75-99) mg/dL Calcium 5.9 L* (8.4-10.2) mg/dL Phosphorus 1.5 L (2.5-4.5) mg/dL AST 62 H (17-59) U/L Total Protein 5.1 L (6.3-8.2) g/dL Albumin 2.5 L (3.5-5.0) g/dL Amylase <30 L (30-110) U/L
[2019-06-18] MEDS: PIPERACILLIN-TAZOBACTAM 3.375 GM in SODIUM CHLORIDE 0.9% 100 ML IVPB SCH ×2 (10:46→19:07)
[2019-06-18] MEDS: PANTOPRAZOLE 40 MG/10 ML VIAL IVP SCH (10:48)
--- NOTE | 2019-06-18 10:59 | CT ---
EXAMINATION TYPE: CT abdomen wo con DATE OF EXAM: 06/18/2019 COMPARISON: Prior CT 06/15/2019 HISTORY: Ileus, previous abnormal CT exam CT DLP: 673.5 mGycm Automated exposure control for dose reduction was used. TECHNIQUE: Helical acquisition of images was performed from the lung bases through the top of iliac crest to include entire abdomen. CONTRAST: Performed without Oral Contrast and without IV contrast. FINDINGS: Lack of intravenous contrast could compromise sensitivity. NG tube shows the distal tip of the gastroesophageal junction level as noted on plain film. There are some coronary artery calcificat ions present. LUNG BASES: Small basilar effusions and associated atelectasis suspected, correlate to exclude pneumo jamila. LIVER/GB: There is a catheter again noted coursing through the region of the gallbladder fossa and di stal aspect of the stomach coursing towards the right lower quadrant through the skin, gallbladder fo ssa shows foci of air and inflammatory changes which are likely postoperative. Liver shows no dilated ducts PANCREAS: There is a biliary stent coursing coiled within the duodenum and into the central hepatic b iliary system. Peripancreatic inflammatory changes are extensive, no evident pseudocyst formation how ever there may be some progression in the peripancreatic increased attenuation suggesting pancreatiti s SPLEEN: No significant abnormality is seen. ADRENALS: No significant interval change is seen. KIDNEYS: No significant abnormality is seen. BOWEL: Cecum just show a more distended appearance with air-fluid level, cecum is somewhat medially displaced, no evident bowel obstruction. Minimal fluid along the mesentery at this level LYMPH NODES: No significant abnormality is appreciated. OSSEOUS STRUCTURES: No significant interval change is seen. FREE AIR: No Free Air visible ASCITES: There is minimal free fluid about the liver. RETROPERITONEAL ADENOPATHY: No Retroperitoneal Adenopathy visible. OTHER: Some fluid present along the mesenteric fat. IMPRESSION: FINDINGS SUGGEST PROGRESSION IN PATIENT'S PANCREATITIS, POSTOP CHANGES. THERE HAS BEEN DEVELOPMENT OF PLEURAL EFFUSIONS LEFT GREATER THAN RIGHT WITH ASSOCIATED PROBABLE BASILAR ATELECTASIS, CORRELATE TO EXCLUDE PNEUMONIA. NG TUBE DESCRIBED. THERE IS MINIMAL ASCITES. NONCONTRAST EXAM MAY LIMIT SENSIT IVITY.
[2019-06-18 12:05] LABS: Glucose,Whole Blood 103 mg/dL (75-99)
--- NOTE | 2019-06-18 12:55 | IR ---
PICC LINE PLACEMENT: HISTORY: Infection requiring long-term antibiotic therapy PROCEDURE: Ultrasound and fluoroscopic guidance of PICC line placement. COMPLICATIONS: None ANESTHESIA: 1. 1% Lidocaine locally. FINDINGS/TECHNIQUE: The procedure was explained to the patient. The risks, complications, benefits and alternatives were discussed and any questions were answered. Informed consent was obtained. The patient was placed supine on the fluoroscopic table and prepped and draped in the usual sterile fash ion. Utilizing a 21 gauge needle and sonographic and fluoroscopic guidance, access in the left basi lic vein was achieved and there is placement of a 0.018 guidewire. The vein is patent. A 4-F sheath was placed over the guidewire. The guidewire and dilator were removed and a 4-F. PICC line was plac ed through the sheath with the tip at the level of the SVC. The sheath was removed, the catheter was flushed and sutured into position. The patient was stable throughout the procedure and remained sta ble upon discharge from the Department of Radiology. The vein puncture was patent under ultrasound. A rangel scale image was obtained to document patency of the vein punctured. All elements of the maximal barrier technique were utilized. FLUOROSCOPY TIME: 0.2 minutes of fluoroscopy and one image submitted IMPRESSION: Successful PICC line placement under ultrasound and fluoroscopic guidance.
[2019-06-18] MEDS ORDERED: MVI, ADULT NO.4 WITH VIT K 10 ML, TRACE (CONC-1ML/DOSE) 1 ML in AMINO ACID 4.25%-D10W+L... IV SCH ×3 (13:00)
--- NOTE | 2019-06-18 15:24 | PN ---
PROGRESS NOTE DATE OF SERVICE: 06/18/2019 Patient is a 74-year-old pleasant white male admitted to the hospital with post ERCP pancreatitis. The patient had a gallbladder surgery 3 weeks ago with a bile leak. He continues to have a WILBERTO drain in place. He was doing well; however, started noticing some increased drainage through the WILBERTO drain yesterday. He continues to complain of abdominal pain and abdominal distention and he had a CT scan of the abdomen and pelvis done this morning that showed findings suggestive of progression of pancreatitis with development of pleural effusion, left side greater than the right side as well as some atelectasis. Presence of biliary stent noted, peripancreatic inflammatory changes are extensive. No pseudocyst formation was identified. PHYSICAL EXAMINATION: Vital signs are stable. Blood pressure 107/61, pulse is 69, temperature 97.4. HEENT: Examination unremarkable. Conjunctivae are pink, sclerae nonicteric. Oral cavity no lesions. NECK: No JVD or lymph node enlargement. CHEST: Clear to auscultation. HEART: Regular rate and rhythm. ABDOMEN: Distended. It was tympanic. There was tenderness in the epigastric area. The rest of the abdomen was benign. Bowel sounds are positive. No organomegaly. EXTREMITIES: No pedal edema. NEURO: He is alert and oriented x3. No focal deficits. LABS: WBC 12.9, hemoglobin 11.6, platelets normal. His calcium is 5.9, albumin is 2.5. Amylase and lipase are 30 and 88 respectively. IMPRESSION: 1. Acute severe pancreatitis, gradually improving. Repeat CAT scan once again shows extensive peripancreatic changes consistent with acute pancreatitis. No evidence of roseline necrosis identified. No pseudocyst formation seen. The patient had a PICC line placed and he is being started on TPN by Dr. Allen today. 2. Postoperative post cholecystectomy bile leak status post ERCP with CBD stent placement 4 days ago. 3. Leukocytosis secondary to pancreatitis which is gradually improving. 4. Hypercalcemia secondary to pancreatitis, gradually improving. 5. Acute kidney injury with normal BUN and creatinine. RECOMMENDATION: 1. Agree with starting him on TPN. 2. Continue with symptomatic and supportive care. 3. Monitor I's and O's closely. 4. Continue broad-spectrum antibiotics. 5. Repeat labs in the morning and will follow with you closely. Thank you for this consultation. MMODL / IJN: [id number] /
[2019-06-18 16:03] LABS: Glucose,Whole Blood 139 mg/dL (75-99)
[2019-06-18 16:44] LABS: Glucose,Whole Blood 157 mg/dL (75-99)
[2019-06-18] MEDS: FAT EMULSION 20% 250 ML in EMPTY BAG 1 BAG IV SCH (19:06)
--- NOTE | 2019-06-18 21:28 | P.PN ---
Progress Note - Text Progress Note Date: 06/18/19 Chief Complaint: Abdominal pain History of presenting complaint: This is a pleasant 74-year-old patient of Dr. Chen. Patient was here in the hospital from May 22 through May 30. Admitted with pneumonia and acute cholecystitis. On May 25 underwent cholecystectomy. With a WILBERTO drain. Had some bile leak. Patient seen by Dr. Ellington from general surgery. Sent over the WILBERTO drain. Yesterday in June 13 patient underwent ERCP with biliary sphincterotomy and a CBD stent placement with Dr. Kat Goldman. Patient went home and started having increasing abdominal pain. Some nausea. No fever no chills. Return to the ER. Daughter the bedside. Patient diagnosed of acute pancreatitis. Dr. Kat Goldman was consulted. Admitted with-post ERCP acute pancreatitis. Has a biliary drain. Acute kidney injury prerenal. Developed abdominal distention with ileus. Made nothing by mouth Today-. Remains nothing by mouth. Computed tomography scan is showing some progression of pancreatitis. Some pleural effusions left greater than right. Some atelectasis. No obvious shortness of breath. No cough. NG tube discontinued by surgery Review of systems: Was done for constitutional, cardiovascular, GI, pulmonary. relevant finding as above Active Medications Acetaminophen (Tylenol Tab) 650 mg PO Q6HR PRN PRN Reason: Mild Pain or Fever > 100.5 Last Admin: 06/17/19 03:44 Dose: 650 mg Documented by: Albuterol/Ipratropium (Duoneb 0.5 Mg-3 Mg/3 Ml Soln) 3 ml INHALATION RT-QID PRN PRN Reason: Shortness Of Breath Or Wheezing Atorvastatin Calcium (Lipitor) 10 mg PO HS [facility] Last Admin: 06/17/19 20:00 Dose: 10 mg Documented by: Enoxaparin Sodium (Lovenox) 40 mg SQ DAILY [facility] Last Admin: 06/18/19 10:21 Dose: Not Given Documented by: Escitalopram Oxalate (Lexapro) 10 mg PO DAILY [facility] Last Admin: 06/18/19 19:22 Dose: 10 mg Documented by: Hydromorphone HCl (Dilaudid) 1 mg IVP Q3HR PRN PRN Reason: Severe Pain Last Admin: 06/18/19 04:36 Dose: 1 mg Documented by: Sodium Chloride (Saline 0.9%) 1,000 mls @ 100 mls/hr IV .Q10H [facility] Last Admin: 06/18/19 17:26 Dose: Not Given Documented by: Piperacillin Sod/Tazobactam (Sod 3.375 gm/ Sodium Chloride) 100 mls @ 25 mls/hr IVPB Q8HR [facility] Last Admin: 06/18/19 19:07 Dose: 25 mls/hr Documented by: Fat Emulsion Intravenous 250 (ml/ IV Solution) 250 mls @ 21 mls/hr IV DAILY@1500 [facility] Last Admin: 06/18/19 19:06 Dose: 21 mls/hr Documented by: Parenteral Vitamin Supplement 10 ml/ Chromium/Copper/Manganese/Seleni/Zn 1 ml/Amino Ac/Electrol/Dextrose/Calcium 1,011 mls @ 50 mls/hr IV .[id number] [facility]; Protocol Stop: 06/19/19 04:59 Last Admin: 06/18/19 14:12 Dose: 50 mls/hr Documented by: Parenteral Vitamin Supplement 10 ml/ Chromium/Copper/Manganese/Seleni/Zn 1 ml/Amino Ac/Electrol/Dextrose/Calcium 1,011 mls @ 96 mls/hr IV .BY DURATION [facility] Amino Ac/Electrol/Dextrose/Calcium (Clinimix E 4.25%-D10% Solution) 1,000 mls @ 96 mls/hr IV .BY DURATION [facility] Insulin Aspart (Novolog) 0 unit SQ Q6HR [facility]; Protocol Insulin Detemir (Levemir) 25 unit SQ DAILY [facility] Last Admin: 06/18/19 10:22 Dose: Not Given Documented by: Levothyroxine Sodium (Synthroid) 75 mcg PO DAILY@0630 [facility] Last Admin: 06/18/19 05:36 Dose: Not Given Documented by: Miscellaneous Information (Phosphorus Per Protocol) 1 each MISCELLANE DAILY PRN; Protocol PRN Reason: Per Protocol Naloxone HCl (Narcan) 0.2 mg IV Q2M PRN PRN Reason: Opioid Reversal Ondansetron HCl (Zofran) 4 mg IVP Q8HR PRN PRN Reason: Nausea And Vomiting Pantoprazole Sodium (Protonix) 40 mg IVP DAILY [facility] Last Admin: 06/18/19 10:48 Dose: 40 mg Documented by: Tamsulosin HCl (Flomax) 0.4 mg PO HS [facility] Last Admin: 06/17/19 20:00 Dose: 0.4 mg Documented by: Physical examination: VITAL SIGNS: 98.6, 67, 19, 154/70, 92% on room air GENERAL: Laying in bed, tired EYES: Pupils equal. Conjunctiva normal. HEENT: External appearance of nose and ears normal, NG tube-discontinued NECK: JVD not raised; masses not palpable. HEART: First and second heart sounds are normal; no edema. LUNGS: Respiratory rate normal, lungs clear. ABDOMEN: Soft, distended, liver spleen not palpable, no masses palpable. Biliary drain PSYCH: [Alert and oriented x3; mood and affect a bit anxious. INVESTIGATIONS, reviewed in the clinical context: White count 12.5 hemoglobin 11.6 platelets 224 progression 3.5 creatinine 0.93 phosphorus 1.5 lipase 88 Abdominal s-vcp-pnderupb of ileus Computed tomography scan/June 17- is showing some progression of pancreatitis. Some pleural effusions left greater than right. Some atelectasis. Previous tracing White count 14.7 hemoglobin 15.5 platelets 333 potassium 4.8 bun 40 creatinine 1.91 amylase 920 lipase 9681 EKG tracing personally reviewed by me-normal sinus rhythm Computed tomography scan of the abdomen-extensive abdominal attenuation in the peripancreatic region. Previous testing: Bun 23 creatinine 1.06 Assessment: -Acute post-ERCP pancreatitis-radiological worsening -Acute ileus-not improving -May 25 patient underwent acute cholecystectomy followed by biliary leak and went home with a WILBERTO drain, followed by a ERCP with CBD stent placement on June [address] Kat Goldman. -Acute renal failure possibly prerenal from fluid loss, corrected -Diabetes mellitus type 2, -BPH -Hyperlipidemia -Hypothyroid -Depression otherwise specified -Bilateral pleural effusion secondary to pancreatitis -TPN and lipids IV Plan: Patient remains nothing by mouth. Patient getting TPN and lipids. NG tube discontinued by surgery. Discussed with patient.
[2019-06-18] MEDS: ATORVASTATIN 10 MG TAB PO SCH (21:29)
[2019-06-18] MEDS: TAMSULOSIN 0.4 MG CAP.ER.24H PO SCH (21:29)
[2019-06-18] MEDS ORDERED: POTASSIUM PHOSPHATE 10 MMOL in SODIUM CHLORIDE 0.9% 100 ML IV SCH (22:00)
[2019-06-18 23:31] LABS: Glucose,Whole Blood 160 mg/dL (75-99)
[2019-06-19] MEDS: PIPERACILLIN-TAZOBACTAM 3.375 GM in SODIUM CHLORIDE 0.9% 100 ML IVPB SCH ×3 (01:12→17:14)
[2019-06-19] MEDS: HYDROmorphone 1 MG/ML 1 ML SYRINGE IVP PRN ×2 (01:23→20:48)
[2019-06-19] MEDS: LEVOTHYROXINE 75 MCG TAB PO SCH (05:23)
[2019-06-19 05:24] LABS: Glucose,Whole Blood 189 mg/dL (75-99)
[2019-06-19] MEDS: 1: MVI, ADULT NO.4 WITH VIT K 10 ML, TRACE (CONC-1ML/DOSE) 1 ML in AMINO ACID 4.25%-D10W IV SCH ×6 (05:25→18:05)
[2019-06-19] MEDS: INSULIN ASPART (NovoLOG) 100 UNIT/ML VIAL SQ SCH ×3 (05:26→17:11)
[2019-06-19 06:49] LABS: Basophils % (A) 0 %; Eosinophils # (A) 0.1 k/uL (0-0.7); Eosinophils % (A) 1 %; HCT 34.2 % (39.0-53.0); HGB 11.4 gm/dL (13.0-17.5); Lymphocytes # (A) 0.6 k/uL (1.0-4.8); Lymphocytes % (A) 6 %; MCH 30.5 pg (25.0-35.0); MCHC 33.3 g/dL (31.0-37.0); MCV 91.6 fL (80.0-100.0); Mean Platelet Volume 7.9; Monocytes # (A) 0.5 k/uL (0-1.0); Monocytes % (A) 5 %; Neutrophils % (A) 88 %; Platelet Count 241 k/uL (150-450); RBC 3.74 m/uL (4.30-5.90); WBC 11.3 k/uL (3.8-10.6)
[2019-06-19 07:07] LABS: ALT 61 U/L (4-49); AST 77 U/L (17-59); African American GFR (CKD) >90 (>60 ml/min/1.73 sqM); Albumin 2.5 g/dL (3.5-5.0); Alkaline Phosphatase 88 U/L (38-126); Anion Gap 7 mmol/L; Blood Urea Nitrogen 14 mg/dL (9-20); Calcium 6.5 mg/dL (8.4-10.2); Carbon Dioxide 26 mmol/L (22-30); Chloride 107 mmol/L (98-107); Glucose 177 mg/dL (74-99); Non-African American GFR(CKD) 83 (>60 ml/min/1.73 sqM); Potassium 3.5 mmol/L (3.5-5.1); Sodium 140 mmol/L (137-145); Total Bilirubin 0.6 mg/dL (0.2-1.3); Total Protein 5.2 g/dL (6.3-8.2)
[2019-06-19 07:23] LABS: Ionized Calcium 4.1 mg/dL (4.5-5.3)
[2019-06-19] MEDS: PANTOPRAZOLE 40 MG/10 ML VIAL IVP SCH (07:33)
[2019-06-19] MEDS: ENOXAPARIN 40 MG/0.4 ML SYRINGE SQ SCH (07:33)
[2019-06-19] MEDS: ESCITALOPRAM 10 MG TAB PO SCH (07:33)
[2019-06-19] MEDS: INSULIN DETEMIR (LEVEMIR) 100 UNIT/ML SYR SQ SCH (07:34)
--- NOTE | 2019-06-19 10:19 | P.PN ---
Progress Note - Text Progress Note Date: 06/19/19 The patient remains resting in his bed comfortably. He has some complaints of abdominal pain distention. On exam his vital signs appear stable. Temp is 97.9 pulse 63 respiratory rate 17 blood pressure 154/77. He is documented to have a bowel movement last night. Abdomen soft. There is mild distention. There is minimal discomfort. Status post resolving ileus, pancreatitis. Patient will continue receive supportive care.
[2019-06-19] MEDS ORDERED: CALCIUM GLUCONATE 1 GM in SODIUM CHLORIDE 0.9% 100 ML IVPB ONE (11:00)
[2019-06-19] MEDS: SODIUM CHLORIDE 0.9% 1,000 ML IV SCH ×2 (11:27→21:09)
--- NOTE | 2019-06-19 11:41 | PN ---
PROGRESS NOTE DATE OF SERVICE: 06/19/2019 Patient is a 74-year-old pleasant white male admitted to the hospital with acute pancreatitis following ERCP done 4 days ago. He subsequently developed abdominal pain, ileus and he was started on TPN yesterday after a PICC line placement. This morning, he is feeling much better. He is very hungry and thirsty and wants to have some clear liquids. He does notice some WILBERTO drain about 30 ml of bilious drain yesterday. Had a repeat CAT scan yesterday that showed progressive worsening changes consistent with acute pancreatitis; however, this morning he is feeling much better. Abdominal pain has resolved. PHYSICAL EXAMINATION: Appears comfortable, in no apparent distress. Vital signs are stable. Blood pressure 134/77, pulse is 63, temperature 97.9. HEENT: Examination unremarkable, conjunctivae are pink, sclerae nonicteric, oral cavity no lesions. NECK: No JVD or lymph node enlargement. CHEST: Clear to auscultation. HEART: Regular rate and rhythm. ABDOMEN: Distended, but there is mild tenderness in the epigastric area. The rest of the abdomen is benign. EXTREMITIES: No pedal edema. SKIN: No rashes. NEUROLOGIC: Alert and oriented x3. No focal deficits. LABS: From today WBC 11.8, hemoglobin 11.4, platelets normal. Basic metabolic panel is within normal limits. ALT and AST are 77 and 61 respectively. Albumin 2.5. Amylase and lipase have normalized. IMPRESSION: 1. Acute ERCP pancreatitis, gradually improving. Repeat CAT scan yesterday did show progressively worsening peripancreatic edema, but clinically, patient is improving. 2. Leukocytosis, resolving. 3. Status post ERCP with CBD stent placement 4 days ago for a bile leak. Still has WILBERTO drain with some bile leak noted. 4. History of gallbladder surgery 3 weeks ago. RECOMMENDATIONS: 1. Continue with antibiotics. 2. Continue with TPN. 3. Will start him on a clear liquid diet. 4. Repeat labs in the morning. 5. Will follow with you closely. Thank you for this consultation. MMODL / IJN: [id number] /
[2019-06-19 11:45] LABS: Glucose,Whole Blood 92 mg/dL (75-99)
[2019-06-19] MEDS: POTASSIUM PHOSPHATE 10 MMOL in SODIUM CHLORIDE 0.9% 250 ML IV SCH ×2 (12:20→14:55)
[2019-06-19] MEDS: FAT EMULSION 20% 250 ML in EMPTY BAG 1 BAG IV SCH ×2 (15:50→17:14)
[2019-06-19 17:07] LABS: Glucose,Whole Blood 74 mg/dL (75-99)
--- NOTE | 2019-06-19 17:33 | P.PN ---
Progress Note - Text Progress Note Date: 06/19/19 Chief Complaint: Abdominal pain History of presenting complaint: This is a pleasant 74-year-old patient of Dr. Chen. Patient was here in the hospital from May 22 through May 30. Admitted with pneumonia and acute cholecystitis. On May 25 underwent cholecystectomy. With a WILBERTO drain. Had some bile leak. Patient seen by Dr. Ellington from general surgery. Sent over the WILBERTO drain. Yesterday in June 13 patient underwent ERCP with biliary sphincterotomy and a CBD stent placement with Dr. Kat Goldman. Patient went home and started having increasing abdominal pain. Some nausea. No fever no chills. Return to the ER. Daughter the bedside. Patient diagnosed of acute pancreatitis. Dr. Kat Goldman was consulted. Admitted with-post ERCP acute pancreatitis. Has a biliary drain. Acute kidney injury prerenal. Developed abdominal distention with ileus. Made nothing by mouth. Repeat Computed tomography scan is showing some progression of pancreatitis. Some pleural effusions left greater than right. NG tube discontinued on June 17 by surgery. Today-started on clear liquids today. Abdomen distended. No nausea vomiting. Bile drain still draining Review of systems: Was done for constitutional, cardiovascular, GI, pulmonary. relevant finding as above Active Medications Acetaminophen (Tylenol Tab) 650 mg PO Q6HR PRN PRN Reason: Mild Pain or Fever > 100.5 Last Admin: 06/17/19 03:44 Dose: 650 mg Documented by: Albuterol/Ipratropium (Duoneb 0.5 Mg-3 Mg/3 Ml Soln) 3 ml INHALATION RT-QID PRN PRN Reason: Shortness Of Breath Or Wheezing Atorvastatin Calcium (Lipitor) 10 mg PO HS [facility] Last Admin: 06/18/19 21:29 Dose: Not Given Documented by: Enoxaparin Sodium (Lovenox) 40 mg SQ DAILY [facility] Last Admin: 06/19/19 07:33 Dose: 40 mg Documented by: Escitalopram Oxalate (Lexapro) 10 mg PO DAILY [facility] Last Admin: 06/19/19 07:33 Dose: 10 mg Documented by: Hydromorphone HCl (Dilaudid) 1 mg IVP Q3HR PRN PRN Reason: Severe Pain Last Admin: 06/19/19 01:23 Dose: 1 mg Documented by: Sodium Chloride (Saline 0.9%) 1,000 mls @ 100 mls/hr IV .Q10H [facility] Last Admin: 06/19/19 11:27 Dose: 100 mls/hr Documented by: Piperacillin Sod/Tazobactam (Sod 3.375 gm/ Sodium Chloride) 100 mls @ 25 mls/hr IVPB Q8HR [facility] Last Admin: 06/19/19 17:14 Dose: 25 mls/hr Documented by: Parenteral Vitamin Supplement 10 ml/ Chromium/Copper/Manganese/Seleni/Zn 1 ml/Amino Ac/Electrol/Dextrose/Calcium 1,011 mls @ 96 mls/hr IV .BY DURATION [facility] Last Admin: 06/19/19 05:25 Dose: 96 mls/hr Documented by: Amino Ac/Electrol/Dextrose/Calcium (Clinimix E 4.25%-D10% Solution) 1,000 mls @ 96 mls/hr IV .BY DURATION [facility] Fat Emulsion Intravenous 250 (ml/ IV Solution) 250 mls @ 21 mls/hr IV DAILY@1800 [facility] Last Admin: 06/19/19 17:14 Dose: 21 mls/hr Documented by: Insulin Aspart (Novolog) 0 unit SQ Q6HR [facility]; Protocol Last Admin: 06/19/19 17:11 Dose: Not Given Documented by: Insulin Detemir (Levemir) 25 unit SQ DAILY [facility] Last Admin: 06/19/19 07:34 Dose: 25 unit Documented by: Levothyroxine Sodium (Synthroid) 75 mcg PO DAILY@0630 [facility] Last Admin: 06/19/19 05:23 Dose: Not Given Documented by: Miscellaneous Information (Phosphorus Per Protocol) 1 each MISCELLANE DAILY PRN; Protocol PRN Reason: Per Protocol Naloxone HCl (Narcan) 0.2 mg IV Q2M PRN PRN Reason: Opioid Reversal Ondansetron HCl (Zofran) 4 mg IVP Q8HR PRN PRN Reason: Nausea And Vomiting Pantoprazole Sodium (Protonix) 40 mg IVP DAILY [facility] Last Admin: 06/19/19 07:33 Dose: 40 mg Documented by: Tamsulosin HCl (Flomax) 0.4 mg PO HS [facility] Last Admin: 06/18/19 21:29 Dose: Not Given Documented by: Physical examination: VITAL SIGNS: 97.9, 63, 17, 154/77, 92% on room air GENERAL: Laying in bed, EYES: Pupils equal. Conjunctiva normal. HEENT: External appearance of nose and ears normal, NG tube-discontinued NECK: JVD not raised; masses not palpable. HEART: First and second heart sounds are normal; no edema. LUNGS: Respiratory rate normal, lungs clear. ABDOMEN: Soft, distended, liver spleen not palpable, no masses palpable. Biliary drain PSYCH: [Alert and oriented x3; mood and affect a bit anxious. INVESTIGATIONS, reviewed in the clinical context: White count 11.3 hemoglobin 11.4 progression 3.5 creatinine 0.91 Ionized calcium 4.1 phosphorus 2 albumin 2.5 Accu-Cheks many 2, 74 Previous tracing White count 14.7 hemoglobin 15.5 platelets 333 potassium 4.8 bun 40 creatinine 1.91 amylase 920 lipase 9681 EKG tracing personally reviewed by me-normal sinus rhythm Computed tomography scan of the abdomen-extensive abdominal attenuation in the peripancreatic region. Previous testing: Bun 23 creatinine 1.06 Computed tomography scan/June 17- is showing some progression of pancreatitis. Some pleural effusions left greater than right. Some atelectasis. Abdominal x-ray/June 17-evidence of ileus Assessment: -Acute post-ERCP pancreatitis-radiological worsening -Acute ileus-not improving -May 25 patient underwent acute cholecystectomy followed by biliary leak and went home with a WILBERTO drain, followed by a ERCP with CBD stent placement on June [address] Kat Goldman. -Acute renal failure possibly prerenal from fluid loss, corrected -Diabetes mellitus type 2, uncontrolled with hypoglycemia -Hypocalcemia, hypophosphatemia -BPH -Hyperlipidemia -Hypothyroid -Depression otherwise specified -Bilateral pleural effusion secondary to pancreatitis -TPN and lipids IV Plan: Started on clear liquids. Patient getting TPN and lipids. Given calcium gluconate. And potassium phosphate. Follow electrolytes.
[2019-06-19] MEDS: ATORVASTATIN 10 MG TAB PO SCH (20:48)
[2019-06-19] MEDS: TAMSULOSIN 0.4 MG CAP.ER.24H PO SCH (20:48)
[2019-06-20 00:17] LABS: Glucose,Whole Blood 194 mg/dL (75-99)
[2019-06-20] MEDS: INSULIN ASPART (NovoLOG) 100 UNIT/ML VIAL SQ SCH ×4 (00:24→17:15)
[2019-06-20] MEDS: PIPERACILLIN-TAZOBACTAM 3.375 GM in SODIUM CHLORIDE 0.9% 100 ML IVPB SCH ×3 (00:24→15:55)
[2019-06-20] MEDS: HYDROmorphone 1 MG/ML 1 ML SYRINGE IVP PRN ×2 (03:29→20:50)
[2019-06-20] MEDS: 1: MVI, ADULT NO.4 WITH VIT K 10 ML, TRACE (CONC-1ML/DOSE) 1 ML in AMINO ACID 4.25%-D10W IV SCH ×6 (04:11→15:54)
[2019-06-20 05:57] LABS: Glucose,Whole Blood 238 mg/dL (75-99)
[2019-06-20] MEDS: LEVOTHYROXINE 75 MCG TAB PO SCH (06:05)
[2019-06-20 07:23] LABS: ALT 71 U/L (4-49); AST 76 U/L (17-59); African American GFR (CKD) >90 (>60 ml/min/1.73 sqM); Albumin 2.3 g/dL (3.5-5.0); Alkaline Phosphatase 85 U/L (38-126); Anion Gap 5 mmol/L; Blood Urea Nitrogen 16 mg/dL (9-20); Calcium 6.8 mg/dL (8.4-10.2); Carbon Dioxide 29 mmol/L (22-30); Chloride 102 mmol/L (98-107); Glucose 226 mg/dL (74-99); Magnesium 1.8 mg/dL (1.6-2.3); Non-African American GFR(CKD) 85 (>60 ml/min/1.73 sqM); Phosphorus 2.6 mg/dL (2.5-4.5); Potassium 3.5 mmol/L (3.5-5.1); Sodium 136 mmol/L (137-145); Total Bilirubin 0.5 mg/dL (0.2-1.3)
--- NOTE | 2019-06-20 08:09 | XR ---
EXAMINATION TYPE: XR abdomen 2V , 4 VIEWS DATE OF EXAM ORDERED: 06/20/2019 HISTORY: Follow-up ileus. COMPARISON: Previous study dated 06/18/2019. FINDINGS: A drainage catheter projects over the right upper quadrant. There is blunting of both CP angles. I cannot exclude small effusions. There are mildly distended air-filled loops of large and small bowel throughout the abdomen. No defin ite free air is seen. No unusual calcifications are seen. IMPRESSION: 1. I SUSPECT SMALL EFFUSIONS. 2. CHANGES CONSISTENT WITH MILD, GENERALIZED ILEUS.
[2019-06-20] MEDS: SODIUM CHLORIDE 0.9% 1,000 ML IV SCH (08:35)
[2019-06-20] MEDS: ESCITALOPRAM 10 MG TAB PO SCH (08:47)
[2019-06-20] MEDS: PANTOPRAZOLE 40 MG/10 ML VIAL IVP SCH (08:47)
[2019-06-20] MEDS: INSULIN DETEMIR (LEVEMIR) 100 UNIT/ML SYR SQ SCH (08:47)
[2019-06-20] MEDS: ENOXAPARIN 40 MG/0.4 ML SYRINGE SQ SCH (08:47)
--- NOTE | 2019-06-20 11:15 | PN ---
PROGRESS NOTE DATE OF DICTATION: June 20, 2019 Patient is a 74-year-old pleasant white male admitted with post ERCP pancreatitis, is gradually improving. Abdominal pain is resolving. He is feeling better. He was started on a clear liquid diet yesterday. He is tolerating well. He continues to have WILBERTO drain with approximately 30 mL of bilious material noted. He underwent ERCP with CBD stent placement 5 days ago for bile leak. He denies any fever, chills, or night sweats. PHYSICAL EXAMINATION: Appears comfortable in no apparent distress. Vital signs is stable. Blood pressure 162/81, pulse is 68, temperature 98.4. HEENT examination unremarkable. Conjunctivae pink. Sclerae anicteric. Oral cavity no lesions. NECK: No JVD or lymph node enlargement. CHEST: Clear to auscultation. HEART: Regular rate and rhythm. ABDOMEN: Soft, it was slightly distended, but it was much less tender. EXTREMITIES: No pedal edema. SKIN no rashes. NEUROLOGIC: Alert and oriented times three. No focal deficits. No CBC available. AST, ALT, 76 and 71 respectively. T-bilirubin and alkaline phosphatase are within normal limits. Basic metabolic panel is within normal limits. IMPRESSION: 1. Status post gallbladder surgery 3 weeks ago followed by a bile leak. He underwent ERCP 5 days ago complicated with post ERCP pancreatitis, presently improving. Amylase and lipase have resolved on a clear liquid diet, tolerating well. Patient remains on TPN. 2. Persistent bile leak with about 30 mL of bilious drainage in the WILBERTO drain noted in the last 24 hours. Following ERCP, bile leak has completely stopped, but he started having a bile leak for the last [address] Allen following the patient closely. 3. Leukocytosis on broad-spectrum antibiotics. 4. Mild right-sided pleural effusion with atelectasis gradually improving. RECOMMENDATIONS: 1. Continue with a clear liquid diet today. 2. Increase ambulation and increase activity. 3. Continue with broad-spectrum antibiotics. 4. In regards to the persistent bile leak, we will discuss with Dr. Allen tomorrow. 5. Repeat labs in the morning and we will follow with you closely. Thank you for this consultation. MMODL / IJN: [id number] /
[2019-06-20 11:46] LABS: Glucose,Whole Blood 199 mg/dL (75-99)
--- NOTE | 2019-06-20 13:25 | P.PN ---
Progress Note - Text Progress Note Date: 06/20/19 The patient's resting comfortably in his bed. He is tolerating clear liquids. His WILBERTO drain has evidence of bernard bile within the WILBERTO drain. He states his pain is minimal. On exam his vital signs are stable. His abdomen soft. Status post bilateral leg after cholecystectomy. Patient ileus has improved. He was most likely discharge home tomorrow.
[2019-06-20 16:40] LABS: Glucose,Whole Blood 89 mg/dL (75-99)
[2019-06-20] MEDS: FAT EMULSION 20% 250 ML in EMPTY BAG 1 BAG IV SCH (17:18)
[2019-06-20] MEDS ORDERED: CALCIUM GLUCONATE 2 GM in SODIUM CHLORIDE 0.9% 100 ML IVPB ONE (17:43)
--- NOTE | 2019-06-20 17:44 | P.PN ---
Progress Note - Text Progress Note Date: 06/20/19 Chief Complaint: Abdominal pain History of presenting complaint: This is a pleasant 74-year-old patient of Dr. Chen. Patient was here in the hospital from May 22 through May 30. Admitted with pneumonia and acute cholecystitis. On May 25 underwent cholecystectomy. With a WILBERTO drain. Had some bile leak. Patient seen by Dr. Ellington from general surgery. Sent over the WILBERTO drain. Yesterday in June 13 patient underwent ERCP with biliary sphincterotomy and a CBD stent placement with Dr. Kat Goldman. Patient went home and started having increasing abdominal pain. Some nausea. No fever no chills. Return to the ER. Daughter the bedside. Patient diagnosed of acute pancreatitis. Dr. Kat Goldman was consulted. Admitted with-post ERCP acute pancreatitis. Has a biliary drain. Acute kidney injury prerenal. Developed abdominal distention with ileus. Made nothing by mouth. Repeat Computed tomography scan is showing some progression of pancreatitis. Some pleural effusions left greater than right. NG tube discontinued on June 17 by surgery. Today-tolerating clear liquids. Did positive flatus. No nausea vomiting. Slightly less distended abdomen. Has been up in the chair. Review of systems: Was done for constitutional, cardiovascular, GI, pulmonary. relevant finding as above Active Medications Acetaminophen (Tylenol Tab) 650 mg PO Q6HR PRN PRN Reason: Mild Pain or Fever > 100.5 Last Admin: 06/17/19 03:44 Dose: 650 mg Documented by: Albuterol/Ipratropium (Duoneb 0.5 Mg-3 Mg/3 Ml Soln) 3 ml INHALATION RT-QID PRN PRN Reason: Shortness Of Breath Or Wheezing Atorvastatin Calcium (Lipitor) 10 mg PO HS [facility] Last Admin: 06/19/19 20:48 Dose: 10 mg Documented by: Enoxaparin Sodium (Lovenox) 40 mg SQ DAILY [facility] Last Admin: 06/20/19 08:47 Dose: 40 mg Documented by: Escitalopram Oxalate (Lexapro) 10 mg PO DAILY [facility] Last Admin: 06/20/19 08:47 Dose: 10 mg Documented by: Hydromorphone HCl (Dilaudid) 1 mg IVP Q3HR PRN PRN Reason: Severe Pain Last Admin: 06/20/19 03:29 Dose: 1 mg Documented by: Piperacillin Sod/Tazobactam (Sod 3.375 gm/ Sodium Chloride) 100 mls @ 25 mls/hr IVPB Q8HR [facility] Last Admin: 06/20/19 15:55 Dose: 25 mls/hr Documented by: Parenteral Vitamin Supplement 10 ml/ Chromium/Copper/Manganese/Seleni/Zn 1 ml/Amino Ac/Electrol/Dextrose/Calcium 1,011 mls @ 96 mls/hr IV .BY DURATION [facility] Last Admin: 06/20/19 04:11 Dose: 96 mls/hr Documented by: Amino Ac/Electrol/Dextrose/Calcium (Clinimix E 4.25%-D10% Solution) 1,000 mls @ 96 mls/hr IV .BY DURATION [facility] Last Admin: 06/20/19 15:54 Dose: 96 mls/hr Documented by: Fat Emulsion Intravenous 250 (ml/ IV Solution) 250 mls @ 21 mls/hr IV DAILY@1800 [facility] Last Admin: 06/20/19 17:18 Dose: 21 mls/hr Documented by: Insulin Aspart (Novolog) 0 unit SQ Q6HR [facility]; Protocol Last Admin: 06/20/19 17:15 Dose: Not Given Documented by: Insulin Detemir (Levemir) 25 unit SQ DAILY [facility] Last Admin: 06/20/19 08:47 Dose: 25 unit Documented by: Levothyroxine Sodium (Synthroid) 75 mcg PO DAILY@0630 [facility] Last Admin: 06/20/19 06:05 Dose: 75 mcg Documented by: Miscellaneous Information (Phosphorus Per Protocol) 1 each MISCELLANE DAILY PRN; Protocol PRN Reason: Per Protocol Naloxone HCl (Narcan) 0.2 mg IV Q2M PRN PRN Reason: Opioid Reversal Ondansetron HCl (Zofran) 4 mg IVP Q8HR PRN PRN Reason: Nausea And Vomiting Pantoprazole Sodium (Protonix) 40 mg IVP DAILY [facility] Last Admin: 06/20/19 08:47 Dose: 40 mg Documented by: Tamsulosin HCl (Flomax) 0.4 mg PO HS [facility] Last Admin: 06/19/19 20:48 Dose: 0.4 mg Documented by: Physical examination: VITAL SIGNS: 98.4, 67, 17, 156/76, 93% on room air GENERAL: Laying in bed, awake EYES: Pupils equal. Conjunctiva normal. HEENT: External appearance of nose and ears normal, NG tube-discontinued NECK: JVD not raised; masses not palpable. HEART: First and second heart sounds are normal; no edema. LUNGS: Respiratory rate normal, lungs clear. ABDOMEN: Soft, slightly less distended, liver spleen not palpable, no masses palpable. Biliary drain PSYCH: [Alert and oriented x3; mood and affect a bit anxious. INVESTIGATIONS, reviewed in the clinical context: Potassium 3.5 creatinine 0.88 calcium 6.8 phosphorus 2.6 Previous tracing White count 14.7 hemoglobin 15.5 platelets 333 potassium 4.8 bun 40 creatinine 1.91 amylase 920 lipase 9681 EKG tracing personally reviewed by me-normal sinus rhythm Computed tomography scan of the abdomen-extensive abdominal attenuation in the peripancreatic region. Previous testing: Bun 23 creatinine 1.06 Computed tomography scan/June 17- is showing some progression of pancreatitis. Some pleural effusions left greater than right. Some atelectasis. Abdominal x-ray/June 17-evidence of ileus Assessment: -Acute post-ERCP pancreatitis-radiological worsening -Acute ileus-not improving -May 25 patient underwent acute cholecystectomy followed by biliary leak and went home with a WILBERTO drain, followed by a ERCP with CBD stent placement on June [address] Kat Goldman. -Acute renal failure possibly prerenal from fluid loss, corrected -Diabetes mellitus type 2, uncontrolled with hypoglycemia -Hypocalcemia, hypophosphatemia -BPH -Hyperlipidemia -Hypothyroid -Depression otherwise specified -Bilateral pleural effusion secondary to pancreatitis -TPN and lipids-IV Plan: Remains on clear liquids. On TPN and lipids. Replace calcium
[2019-06-20] MEDS: TAMSULOSIN 0.4 MG CAP.ER.24H PO SCH (20:50)
[2019-06-20] MEDS: ATORVASTATIN 10 MG TAB PO SCH (20:50)
[2019-06-21] MEDS: PIPERACILLIN-TAZOBACTAM 3.375 GM in SODIUM CHLORIDE 0.9% 100 ML IVPB SCH ×2 (00:09→08:13)
[2019-06-21 00:20] LABS: Glucose,Whole Blood 238 mg/dL (75-99)
[2019-06-21] MEDS: INSULIN ASPART (NovoLOG) 100 UNIT/ML VIAL SQ SCH ×3 (00:30→11:43)
[2019-06-21] MEDS: 1: MVI, ADULT NO.4 WITH VIT K 10 ML, TRACE (CONC-1ML/DOSE) 1 ML in AMINO ACID 4.25%-D10W IV SCH ×6 (02:20→10:06)
[2019-06-21] MEDS: HYDROmorphone 1 MG/ML 1 ML SYRINGE IVP PRN (04:16)
[2019-06-21 05:44] LABS: Glucose,Whole Blood 250 mg/dL (75-99)
[2019-06-21] MEDS: LEVOTHYROXINE 75 MCG TAB PO SCH (05:45)
[2019-06-21 06:55] LABS: Glucose,Whole Blood 277 mg/dL (75-99)
[2019-06-21 07:00] LABS: Ionized Calcium 4.3 mg/dL (4.5-5.3)
[2019-06-21 07:17] LABS: African American GFR (CKD) >90 (>60 ml/min/1.73 sqM); Anion Gap 7 mmol/L; Blood Urea Nitrogen 18 mg/dL (9-20); Calcium 7.2 mg/dL (8.4-10.2); Carbon Dioxide 27 mmol/L (22-30); Chloride 100 mmol/L (98-107); Glucose 270 mg/dL (74-99); Magnesium 1.6 mg/dL (1.6-2.3); Non-African American GFR(CKD) 86 (>60 ml/min/1.73 sqM); Potassium 3.6 mmol/L (3.5-5.1); Sodium 134 mmol/L (137-145)
[2019-06-21 07:48] VITALS: BP 157/80; PULSE 72; RESP 20; TEMP 98
[2019-06-21] MEDS: PANTOPRAZOLE 40 MG/10 ML VIAL IVP SCH (08:12)
[2019-06-21] MEDS: ESCITALOPRAM 10 MG TAB PO SCH (08:12)
[2019-06-21] MEDS: INSULIN DETEMIR (LEVEMIR) 100 UNIT/ML SYR SQ SCH (08:13)
[2019-06-21] MEDS: ENOXAPARIN 40 MG/0.4 ML SYRINGE SQ SCH (08:13)
[2019-06-21] MEDS: SIMETHICONE 40 MG/0.6 ML DROPS 2,000 MG/30 ML BOTTLE PO SCH ×2 (10:01→13:30)
--- NOTE | 2019-06-21 10:14 | P.PN ---
<Katlyn Wren - Last Filed: 06/21/19 10:10> Subjective Progress Note Date: 06/21/19 CHIEF COMPLAINT: Acute pancreatitis HISTORY OF PRESENT ILLNESS: Patient examined at the bedside with Dr. Allen. Patient reports improvement in abdominal pain and distention. He is passing flatus. Reports a bowel movement over the weekend. Tolerating clear liquid diet. WILBERTO with small amount of bile drainage. Vital signs stable. Patient is afebrile. PHYSICAL EXAM: VITAL SIGNS: Reviewed GENERAL: Well-developed in no acute distress. Appears nontoxic. HEENT: No sclera icterus. Extraocular movements grossly intact. Moist buccal mucosa. Head is atraumatic, normocephalic. Hears conversational speech. No nasal drainage. NECK: Supple without lymphadenopathy. CHEST: Non-labored respirations and equal bilateral excursions. CARDIOVASCULAR: Regular rate with regular rhythm. Palpable 2+ radial pulses. ABDOMEN: Soft. Nondistended. Nontender with palpation. Surgical incision healing well without erythema or drainage. WILBERTO drain noted with bile drainage. MUSCULOSKELETAL: No clubbing or cyanosis. NEUROLOGIC: No focal or lateralizing signs. Cranial nerves II through XII grossly intact. PSYCH: Appropriate affect. Alert and oriented to person, place and time. SKIN: Well perfused. Good skin turgor. ASSESSMENT: 1. ERCP induced pancreatitis 2. History of recent subtotal cholecystectomy secondary to gangrenous purulent cholecystitis with cystic duct obstruction secondary to gallstones 3. Expected post operative bile leak 4. Air within gallbladder fossa, expected secondary to WILBERTO drain 5. Leukocytosis 6. Severe paralytic ileus secondary to severe hypocalcemia from severe pancreatitis, resolving 7. Hypophosphatemia 8. Hypocalcemia PLAN: -WILBERTO drain discontinued at the bedside by Dr. Allen -Advance diet -Wean off TPN -Add simethicone drops PRN for gas -May be discharged home today from a surgical standpoint Nurse practitioner note has been reviewed by physician. Signing provider agrees with the documented findings, assessment, and plan of care. Objective - Vital Signs Vital signs: Vital Signs Temp 98.0 F 06/21/19 07:00 Pulse 72 06/21/19 07:00 Resp 20 06/21/19 07:00 BP 157/80 06/21/19 07:00 Pulse Ox 90 L 06/21/19 07:00 Intake & Output 06/20/19 06/21/19 06/21/19 18:59 06:59 18:59 Intake Total 2661 Output Total 1850 750 Balance 811 -750 Intake: Intake, IV Titration 1711 Amount Amino Acid 4.25%-D10w+ 600 Lytes*E* 1,000 ml @ 96 mls/hr IV .BY DURATION [facility] Rx#:[id number] Mvi, Adult No.4 with Vit 1011 K 10 ml Trace (Conc-1Ml/ Dose) 1 ml In Amino Acid 4.25%-D10w+Lytes*E* 1,000 ml @ 96 mls/hr IV .BY DURATION [facility] Rx#: [id number] Piperacillin-Tazobactam 3 100 .375 gm In Sodium Chloride 0.9% 100 ml @ 25 mls/hr IVPB Q8HR [facility] Rx# :[id number] Oral 950 Output: Urine 1850 750 Other: Voiding Method Urinal Urinal # Voids 2 - Labs CBC & Chem 7: 06/19/19 05:50 06/21/19 06:08 Labs: Abnormal Lab Results - Last 24 Hours (Table) 06/20/19 06/21/19 06/21/19 Range/Units 11:42 00:19 05:43 Sodium (137-145) mmol/L Glucose (74-99) mg/dL POC Glucose (mg/dL) 199 H 238 H 250 H (75-99) mg/dL Calcium (8.4-10.2) mg/dL Ionized Calcium Ashley (4.5-5.3) mg/dL 06/21/19 06/21/19 Range/Units 06:08 06:52 Sodium 134 L (137-145) mmol/L Glucose 270 H (74-99) mg/dL POC Glucose (mg/dL) 277 H (75-99) mg/dL Calcium 7.2 L (8.4-10.2) mg/dL Ionized Calcium Ashley 4.3 L (4.5-5.3) mg/dL <Anika Allen - Last Filed: 06/21/19 11:22> Subjective Patient seen and evaluated with above. He has marked clinical improvement from last week. Tolerating liquid diet. WILBERTO discontinued as stent in place. Agreeable for discharge once medically stable. Follow up with GI for stent management.. Objective - Vital Signs Vital signs: Vital Signs Temp 98.0 F 06/21/19 07:00 Pulse 72 06/21/19 07:00 Resp 20 06/21/19 07:00 BP 157/80 06/21/19 07:00 Pulse Ox 90 L 06/21/19 07:00 Intake & Output 06/20/19 06/21/19 06/21/19 18:59 06:59 18:59 Intake Total 2661 Output Total 1850 750 Balance 811 -750 Intake: Intake, IV Titration 1711 Amount Amino Acid 4.25%-D10w+ 600 Lytes*E* 1,000 ml @ 96 mls/hr IV .BY DURATION [facility] Rx#:[id number] Mvi, Adult No.4 with Vit 1011 K 10 ml Trace (Conc-1Ml/ Dose) 1 ml In Amino Acid 4.25%-D10w+Lytes*E* 1,000 ml @ 96 mls/hr IV .BY DURATION [facility] Rx#: [id number] Piperacillin-Tazobactam 3 100 .375 gm In Sodium Chloride 0.9% 100 ml @ 25 mls/hr IVPB Q8HR [facility] Rx# :[id number] Oral 950 Output: Urine 1850 750 Other: Voiding Method Urinal Urinal # Voids 2 - Labs CBC & Chem 7: 06/19/19 05:50 06/21/19 06:08 Labs: Abnormal Lab Results - Last 24 Hours (Table) 06/20/19 06/21/19 06/21/19 Range/Units 11:42 00:19 05:43 Sodium (137-145) mmol/L Glucose (74-99) mg/dL POC Glucose (mg/dL) 199 H 238 H 250 H (75-99) mg/dL Calcium (8.4-10.2) mg/dL Ionized Calcium Ashley (4.5-5.3) mg/dL 06/21/19 06/21/19 Range/Units 06:08 06:52 Sodium 134 L (137-145) mmol/L Glucose 270 H (74-99) mg/dL POC Glucose (mg/dL) 277 H (75-99) mg/dL Calcium 7.2 L (8.4-10.2) mg/dL Ionized Calcium Ashley 4.3 L (4.5-5.3) mg/dL
[2019-06-21 11:41] LABS: Glucose,Whole Blood 283 mg/dL (75-99)
[2019-06-21] MEDS: MAGNESIUM SULFATE-D5W PMX 1 GM in DEXTROSE/WATER 1 100ML.BAG IVPB SCH ×2 (11:42→13:29)
--- NOTE | 2019-06-21 20:15 | P.PN ---
Progress Note - Text Progress Note Date: 06/21/19 Chief Complaint: Abdominal pain History of presenting complaint: This is a pleasant 74-year-old patient of Dr. Chen. Patient was here in the hospital from May 22 through May 30. Admitted with pneumonia and acute cholecystitis. On May 25 underwent cholecystectomy. With a WILBERTO drain. Had some bile leak. Patient seen by Dr. Ellington from general surgery. Sent over the WILBERTO drain. Yesterday in June 13 patient underwent ERCP with biliary sphincterotomy and a CBD stent placement with Dr. Kat Goldman. Patient went home and started having increasing abdominal pain. Some nausea. No fever no chills. Return to the ER. Daughter the bedside. Patient diagnosed of acute pancreatitis. Dr. Kat Goldman was consulted. Admitted with-post ERCP acute pancreatitis. Has a biliary drain. Acute kidney injury prerenal. Developed abdominal distention with ileus. Made nothing by mouth. Repeat Computed tomography scan is showing some progression of pancreatitis. Some pleural effusions left greater than right. NG tube discontinued on June 17 by surgery. Today-tolerating a full liquid diet. No abdominal pain. Passed flatus. Up to the bathroom. Earlier biliary drain removed by surgery Review of systems: Was done for constitutional, cardiovascular, GI, pulmonary. relevant finding as above Today's current medications are reviewed in electronic records Physical examination: VITAL SIGNS: 98, 72, 20, 157/80, 90% on room air GENERAL: Sitting up, feeling comfortable EYES: Pupils equal. Conjunctiva normal. HEENT: External appearance of nose and ears normal, NG tube-discontinued NECK: JVD not raised; masses not palpable. HEART: First and second heart sounds are normal; no edema. LUNGS: Respiratory rate normal, lungs clear. ABDOMEN: Soft, not distended, liver spleen not palpable, no masses palpable. Biliary drain removed PSYCH: [Alert and oriented x3; mood and affect a bit anxious. INVESTIGATIONS, reviewed in the clinical context: Potassium 3.6 creatinine 0.87 calcium 7.2 Previous tracing White count 14.7 hemoglobin 15.5 platelets 333 potassium 4.8 bun 40 creatinine 1.91 amylase 920 lipase 9681 EKG tracing personally reviewed by me-normal sinus rhythm Computed tomography scan of the abdomen-extensive abdominal attenuation in the peripancreatic region. Previous testing: Bun 23 creatinine 1.06 Computed tomography scan/June 17- is showing some progression of pancreatitis. Some pleural effusions left greater than right. Some atelectasis. Abdominal x-ray/June 17-evidence of ileus Assessment: -Acute post-ERCP pancreatitis- -Acute improving -May 25 patient underwent acute cholecystectomy followed by biliary leak and went home with a WILBERTO drain, followed by a ERCP with CBD stent placement on June [address] Kat Goldman. -Acute renal failure possibly prerenal from fluid loss, corrected -Diabetes mellitus type 2, uncontrolled with hypoglycemia -Hypocalcemia, hypophosphatemia -BPH -Hyperlipidemia -Hypothyroid -Depression otherwise specified -Bilateral pleural effusion secondary to pancreatitis -TPN and lipids-IV Plan: Perforated full liquid. Diet being advanced per surgery. TPN and lipids being taken off. Replace calcium.
--- NOTE | 2019-06-22 20:13 | P.DS ---
Providers Date of admission: 06/15/19 10:55 Expected date of discharge: 06/21/19 Attending physician: Roberto Christine Consults: 06/15/19 11:59 Consult Physician Stat Consulting Provider: Breanne Goldman Consult Reason/Comments: Pancreatitis Do you want consulting provider notified?: Yes 06/15/19 16:13 Consult Physician Routine Consulting Provider: Anika Allen Consult Reason/Comments: acute pancreatitis, abnormal CT scan with small amout of free air Do you want consulting provider notified?: Yes Primary care physician: Td April [facility] Course: Chief Complaint: Abdominal pain History of presenting complaint: This is a pleasant 74-year-old patient of Dr. Chen. Patient was here in the hospital from May 22 through May 30. Admitted with pneumonia and acute cholecystitis. On May 25 underwent cholecystectomy. With a WILBERTO drain. Had some bile leak. Patient seen by Dr. Ellington from general surgery. Sent over the WILBERTO drain. Yesterday in June 13 patient underwent ERCP with biliary sphincterotomy and a CBD stent placement with Dr. Kat Goldman. Patient went home and started having increasing abdominal pain. Some nausea. No fever no chills. Return to the ER. Daughter the bedside. Patient diagnosed of acute pancreatitis. Dr. Kat Goldman was consulted. Admitted with-post ERCP acute pancreatitis. Has a biliary drain. Acute kidney injury prerenal. Developed abdominal distention with ileus. Made nothing by mouth. Repeat Computed tomography scan is showing some progression of pancreatitis. Some pleural effusions left greater than right. NG tube discontinued on June 17 by surgery. Diet was advanced. biliary drain removed by surgery Today-tolerating a full liquid diet. No abdominal pain. Passed flatus. Up to the bathroom. Patient was discharged by surgery-On Augmentin Consultation: Dr. Velasco from ID Dr. Peña from general surgery Physical examination: VITAL SIGNS: 98, 72, 20, 157/80, 90% on room air GENERAL: Sitting up, feeling comfortable EYES: Pupils equal. Conjunctiva normal. HEENT: External appearance of nose and ears normal, NG tube-discontinued NECK: JVD not raised; masses not palpable. HEART: First and second heart sounds are normal; no edema. LUNGS: Respiratory rate normal, lungs clear. ABDOMEN: Soft, not distended, liver spleen not palpable, no masses palpable. Biliary drain removed PSYCH: [Alert and oriented x3; mood and affect a bit anxious. INVESTIGATIONS, reviewed in the clinical context: Potassium 3.6 creatinine 0.87 calcium 7.2 Previous tracing White count 14.7 hemoglobin 15.5 platelets 333 potassium 4.8 bun 40 creatinine 1.91 amylase 920 lipase 9681 EKG tracing personally reviewed by me-normal sinus rhythm Computed tomography scan of the abdomen-extensive abdominal attenuation in the peripancreatic region. Previous testing: Bun 23 creatinine 1.06 Computed tomography scan/June 17- is showing some progression of pancreatitis. Some pleural effusions left greater than right. Some atelectasis. Abdominal x-ray/June 17-evidence of ileus Assessment: -Acute post-ERCP pancreatitis- -May 25 patient underwent acute cholecystectomy followed by biliary leak and went home with a WILBERTO drain, followed by a ERCP with CBD stent placement on June [address] Kat Goldman. -Acute renal failure possibly prerenal from fluid loss, corrected -Diabetes mellitus type 2, uncontrolled with hypoglycemia -Hypocalcemia, hypophosphatemia -BPH -Hyperlipidemia -Hypothyroid -Depression otherwise specified -Bilateral pleural effusion secondary to pancreatitis -TPN and lipids-IV Disposition: Home per surgery Patient Condition at Discharge: Stable Plan - Discharge Summary Discharge Rx Participant: No New Discharge Prescriptions: New Simethicone 40 mg/0.6 ml Drops [Mylicon Drops] 40 mg PO QID PRN #100 ml PRN Reason: gas Amoxicillin/Potassium Clav [Augmentin 875-125 Tablet] 1 tab PO Q12HR #14 tab Continue Cholecalciferol [Vitamin D3 (25 Mcg = 1000 Iu)] 1,000 unit PO BID Lovastatin [Altoprev] 20 mg PO HS Levothyroxine Sodium [Synthroid] 75 mcg PO DAILY Escitalopram [Lexapro] 10 mg PO DAILY metFORMIN HCL 1,000 mg PO BID Tamsulosin HCl [Flomax] 0.4 mg PO HS Acetaminophen Tab [Tylenol] 650 mg PO Q4H PRN #30 tablet PRN Reason: Pain Lisinopril [Prinivil] 5 mg PO HS Omeprazole [PriLOSEC] 20 mg PO QAM Changed Insulin Degludec [Tresiba Flextouch U-100] 30 units SQ DAILY #0 No Action Cinnamon 1000mg + Chromium 1 tab PO BID Saw Magnolia 450mg 1 tab PO QID Discharge Medication List Cholecalciferol [Vitamin D3 (25 Mcg = 1000 Iu)] 1,000 unit PO BID 05/23/19 [History] Cinnamon 1000mg + Chromium 1 tab PO BID 05/23/19 [History] Escitalopram [Lexapro] 10 mg PO DAILY 05/23/19 [History] Levothyroxine Sodium [Synthroid] 75 mcg PO DAILY 05/23/19 [History] Lovastatin [Altoprev] 20 mg PO HS 05/23/19 [History] Saw Magnolia 450mg 1 tab PO QID 05/23/19 [History] Tamsulosin HCl [Flomax] 0.4 mg PO HS 05/23/19 [History] metFORMIN HCL 1,000 mg PO BID 05/23/19 [History] Acetaminophen Tab [Tylenol] 650 mg PO Q4H PRN #30 tablet 05/31/19 [Rx] Lisinopril [Prinivil] 5 mg PO HS 06/10/19 [History] Omeprazole [PriLOSEC] 20 mg PO QAM 06/15/19 [History] Amoxicillin/Potassium Clav [Augmentin 875-125 Tablet] 1 tab PO Q12HR #14 tab 06/21/19 [Rx] Insulin Degludec [Tresiba Flextouch U-100] 30 units SQ DAILY #0 06/21/19 [Rx] Simethicone 40 mg/0.6 ml Drops [Mylicon Drops] 40 mg PO QID PRN #100 ml 06/21/19 [Rx] Follow up Appointment(s)/Referral(s): Td Chen MD [Primary Care Provider] - 06/23/19 2:00 pm (At [facility] [phone]) Anika Allen MD [STAFF PHYSICIAN] - 06/29/19 10:40 am Breanne Goldman MD [STAFF PHYSICIAN] - 07/21/19 1:30 pm [facility], [NON-STAFF] - Patient Instructions/Handouts: Pancreatitis (DC) Activity/Diet/Wound Care/Special Instructions: Luz - [employer] - [phone] - please call with any questions regarding hospital discharge planning CBC/CMP-[address] Kat Goldman, Dr. Ellington Soft bland low-fat diet Discharge Disposition: HOME WITH HOME HEALTH SERVICES
== END 2019-06-21 15:30 | disposition home health service (06) | DRG 393 ==
LOC: EC 09:15 → 4SSUR 10:55
PROVIDERS: ADMIT Hospitalist; ATTEND Hospitalist
PROC: 3E0436Z Introduction of Nutritional Substance into Central Vein, Percutaneous Approach (ICD-10-PCS; 2019-06-18)
PROC: 02HV33Z Insertion of Infusion Device into Superior Vena Cava, Percutaneous Approach (ICD-10-PCS; principal; 2019-06-18 07:30)
DX: K91.89 Other postprocedural complications and disorders of digestive system (principal); K85.80 Other acute pancreatitis without necrosis or infection; J90 Pleural effusion, not elsewhere classified; J98.11 Atelectasis; K56.0 Paralytic ileus; N17.9 Acute kidney failure, unspecified; E11.649 Type 2 diabetes mellitus with hypoglycemia without coma; E83.39 Other disorders of phosphorus metabolism; E83.51 Hypocalcemia; E03.9 Hypothyroidism, unspecified; E78.5 Hyperlipidemia, unspecified; E86.0 Dehydration; F32.9 Major depressive disorder, single episode, unspecified; I10 Essential (primary) hypertension; N40.0 Benign prostatic hyperplasia without lower urinary tract symptoms; F41.9 Anxiety disorder, unspecified; G47.30 Sleep apnea, unspecified; Z79.4 Long term (current) use of insulin; Z79.82 Long term (current) use of aspirin; Z79.890 Hormone replacement therapy; Z79.899 Other long term (current) drug therapy; Z87.891 Personal history of nicotine dependence; Z90.49 Acquired absence of other specified parts of digestive tract; Z87.01 Personal history of pneumonia (recurrent); Z80.42 Family history of malignant neoplasm of prostate; Z82.49 Family history of ischemic heart disease and other diseases of the circulatory system; Z82.3 Family history of stroke; Y83.8 Other surgical procedures as the cause of abnormal reaction of the patient, or of later complication, without mention of misadventure at the time of the procedure
CPT/HCPCS: 36415; 36573; 71045; 74019; 74022; 74150; 74176; 80048; 80053; 81001; 82150; 82330; 83690; 83735; 84100; 84478; 85025; 85027; 93005; 96361; 96374; 96375; 96376; 99285